=== PATIENT | male | born 1940 | race Caucasian/White ===

== ENCOUNTER 2016-03-05 07:06 | Inpatient (IN) | payer OTHER ==
[~2016-03-05] VITALS: Ht 170.2 cm; Wt 73.8 kg
[~2016-03-05 07:06] MED LIST: AFAT1TAB2 PO; ASPI81TA21 PO; CEPH-570 PO; DENOINJ IM; FRRG PO; GUAI100L PO; LISI-729 PO; ONDA8TAB6 PO; OXYC-57 PO; PROC1TAB5 PO; ROSU40TA PO; ZOLP10TA PO; [UNRECOGNIZED DRUG - REMARK] PO; [UNRECOGNIZED DRUG - REMARK] PO
--- NOTE | 2016-03-05 07:30 | EMERGENCY ROOM VISIT NOTE ---
History Report prepared by Laci: Vikki Gil Under the Supervision of: Dr. Mima Nichols M.D. First contact with patient: 07:25 Chief Complaint: OTHER COMPLAINT Stated Complaint: NEEDS PORT REMOVED History of Present Illness The patient is a 76 year old male who presents to the Emergency Room with complaints of needing his port removed. He is accompanied by his . The patient states he was referred by Dr. Machado at [facility] Hematology/Oncology to have the port removed this morning as he was recently diagnosed with a positive gram negative culture. The patient has a history of lung and bone cancer states he had his port placed [address] Yusuf. Yesterday, he started a new drug treatment and reports he felt "shivery and shaky" while it was being administered. He notes a few weeks ago when he was getting his port flushed, he also felt shaky. The patient admits to the chills but denies any fevers. Source of History: patient Onset: PROJECT CONTROL ANALYST Position: other (global) Timing: constant Associated Symptoms: + chills, No fevers Review of Systems See HPI for pertinent positives & negatives. A total of 10 systems reviewed and were otherwise negative. Past Medical & Surgical Medical Problems: (1) Dyslipidemia (2) GERD (gastroesophageal reflux disease) (3) HTN (hypertension) (4) Lung cancer (5) Lung cancer, upper lobe Surgical Problems: (1) History of tonsillectomy and adenoidectomy Family History FH: cardiovascular disease Stroke Social History Smoking Status: Former Smoker Alcohol Use: none Drug Use: none Marital Status: Housing Status: lives with family Occupation Status: retired Current/Historical Medications Scheduled Aspirin Enteric Coated (Ecotrin Or Generic), 81 MG PO DAILY Atorvastatin (Lipitor), 40 MG PO DAILY Denosumab (Xgeva), 1 SYR IM Q6WK Ferrous Gluconate (Ferrous Gluconate), 324 MG PEG DAILY Guaifenesin (Robitussin), 5 ML PO PRN Lisinopril (Zestril), 5 MG PO DAILY Nivolumab (Opdivo), 1 DOSE IV Q2WK Omeprazole (Prilosec), 40 MG PO DAILY Ondansetron Hcl (Zofran), 8 MG PO Q8HR PRN Oxycodone/Acetaminophen 5MG/325MG (Percocet 5MG/325MG), 1 TABLET PO Q4-6HR PRN Prochlorperazine Maleate (Compazine), 10 MG PO Q4-6HR PRN Zolpidem Tartrate (Ambien), 10 MG PO HS Scheduled PRN Lorazepam (Ativan), 0.5 MG PO BID PRN for Anxiety Allergies Coded Allergies: No Known Allergies (Unverified , 03/05/16) Physical Exam Vital Signs Date Time Temp Pulse Resp B/P Pulse Ox O2 Delivery O2 Flow Rate FiO2 03/05/16 09:25 99 20 111/63 96 Room Air 03/05/16 08:09 37.1 103 18 118/66 96 Room Air 03/05/16 07:47 109 03/05/16 07:10 36.6 119 20 102/59 95 Room Air Physical Exam Vital signs reviewed. General: Well-appearing 76 year old man, in no significant distress. HEENT: No scleral icterus, PERRLA, neck supple. Atraumatic. Cardiovascular: Regular rate and rhythm, no extra sounds. Pulmonary: Clear to auscultation bilaterally, normal work of breathing. Abdomen: Soft, nontender, nondistended, positive bowel sounds. Musculoskeletal: Atraumatic, no peripheral edema. Neurologic: Patient awake alert and oriented x 3, full strength in all 4 extremities. Cranial nerves 2 through 12 grossly intact. Skin: Warm, dry, no rash. Port in left subclavicular region, bandage to the right chest wall. Medical Decision & Procedures Laboratory Results 03/05/16 07:55 Red Blood Count 4.38, Mean Corpuscular Volume 79.0, Mean Corpuscular Hemoglobin 26.5, Mean Corpuscular Hemoglobin Concent 33.5, Mean Platelet Volume 10.4 03/05/16 07:55 Test 03/05/16 07:55 White Blood Count 9.26 K/uL (4.8-10.8) Red Blood Count 4.38 M/uL (4.7-6.1) Hemoglobin 11.6 g/dL (14.0-18.0) Hematocrit 34.6 % (42-52) Mean Corpuscular Volume 79.0 fL (80-100) Mean Corpuscular Hemoglobin 26.5 pg (25-34) Mean Corpuscular Hemoglobin Concent 33.5 g/dl (32-36) Platelet Count 143 K/uL (130-400) Mean Platelet Volume 10.4 fL (7.4-10.4) RDW Standard Deviation 46.2 fL (36.4-46.3) RDW Coefficient of Variation 16.0 % (11.5-14.5) Neutrophils % (Manual) 95.7 % Lymphocytes % (Manual) 0.0 % Monocytes % (Manual) 1.7 % Eosinophils % (Manual) 1.7 % Basophils % (Manual) 0.9 % (0-2) Neutrophils # (Manual) 8.86 K/uL (1.4-6.5) Total Absolute Neutrophils 8.86 K/uL (1.4-6.5) Total Absolute Lymphocytes 0.00 K/uL (1.2-3.4) Monocytes # (Manual) 0.16 K/uL (0.11-0.59) Eosinophils # (Manual) 0.16 K/uL (0-0.5) Basophils # (Manual) 0.08 K/uL (0-0.2) Red Blood Cell Morphology Unremarkable Prothrombin Time 11.6 SECONDS (9.0-12.0) Prothromb Time International Ratio 1.1 (0.9-1.1) Activated Partial Thromboplast Time 31.7 SECONDS (21.0-31.0) Partial Thromboplastin Ratio 1.2 Anion Gap 10.0 mmol/L (3-11) Est Creatinine Clear Calc Drug Dose 55.1 ml/min Estimated GFR () 76.2 Estimated GFR (Non- 65.8 BUN/Creatinine Ratio 19.3 (10-20) Calcium Level 9.0 mg/dl (8.5-10.1) Magnesium Level 1.9 mg/dl (1.8-2.4) Total Bilirubin 1.1 mg/dl (0.2-1) Direct Bilirubin 0.3 mg/dl (0-0.2) Aspartate Amino Transf (AST/SGOT) 27 U/L (15-37) Alanine Aminotransferase (ALT/SGPT) 35 U/L (12-78) Alkaline Phosphatase 117 U/L (45-117) Total Protein 6.3 gm/dl (6.4-8.2) Albumin 2.9 gm/dl (3.4-5.0) Laboratory results per my review. Medications Administered Medications (Trade) Dose Ordered Sig/Gal Route Start Time Stop Time Status Last Admin Dose Admin Sodium Chloride (Nss 1000ml) 1,000 ml @ 125 mls/hr Q8H STAT IV 03/05/16 07:37 03/05/16 15:17 DC 03/05/16 08:04 125 MLS/HR Piperacillin Sod/ Tazobactam Sod (Zosyn Iv) 4.5 gm NOW STAT IV 03/05/16 07:37 03/05/16 07:40 DC 03/05/16 08:03 4.5 GM Acetaminophen (Tylenol Tab) 650 mg Q4H PRN PO 03/05/16 10:15 04/04/16 10:14 03/05/16 13:44 650 MG ECG Indication: tachycardia Rate (beats per minute): 106 Rhythm: sinus tachycardia Findings: no acute ischemic change, no ectopy ED Course 0724: Past medical records reviewed. The patient was evaluated in room B2. A complete history and physical examination was performed. 0737: Zosyn 4.5 gm IV, NSS 1000 ml @ 125 mls/hr IV. 0804: I reevaluated the patient. He is resting comfortably. 0807: I discussed the patients case with Dr. Ashton, [facility]. The patient will be further evaluated. 0918: I discussed the patients case with Cherise Blanco PA-C, [facility] Hospitalist. The patient will be further evaluated. Medical Decision Etiologies such as sepsis, UTI, pneumonia, metabolic, electrolyte abnormalities , cardiac sources, intracerebral event, toxicologic, neurologic, infected indwelling port, as well as others were entertained. This patient was evaluated and appeared to be in no significant distress. Physical examination reveals a generally well-appearing but chronically ill male. He states he's had chills but is afebrile. Per outside medical records, the patient had a gram negative rods on blood culture. Blood cultures were repeated. The patient was given IV Zosyn. He was hydrated with normal saline solution. I did speak with Dr. Ashton of general surgery. He stated he would evaluate the patient later today. The hospitalist was consulted for admission and further management. Patient is aware of the plan and agrees. Consults Time Called: 08 Consulting Physician: Dr. Ashton, [facility] Returned Call: [phone] I discussed the patients case with Dr. Ashton, [facility] General Surgery. The patient will be further evaluated. Additional Consults: Time Called: 915 Consulted Physician: Cherise Blanco PA-C, [facility] Returned Call: [phone] Additional Comments: I discussed the patients case with [facility] Bl[facility]-C, [facility] The patient will be further evaluated. Impression Primary Impression: Bacteremia Additional Impressions: Lung cancer, Infected venous access port Scribe Attestation The scribe's documentation has been prepared under my direction and personally reviewed by me in its entirety. I confirm that the note above accurately reflects all work, treatment, procedures, and medical decision making performed by me. Departure Information Dispostion Being Evaluated By Hospitalist Referrals No Doctor, Assigned (PCP) Patient Instructions A Signature Page, My [facility]
[2016-03-05] MEDS ORDERED: SODIUM CHLORIDE 0.9% 1000ML 1,000 ML IV STA (07:37)
[2016-03-05] MEDS ORDERED: PIPERACILLIN/TAZOBACTAM 4.5 GM/100ML D5W IV STA (07:37)
[2016-03-05 08:19] LABS: HEMATOCRIT 34.6 % (42-52); MEAN CORPUSCULAR HEMOGLOBIN 26.5 pg (25-34); MEAN CORPUSCULAR HGB CONC 33.5 g/dl (32-36); MEAN PLATELET VOLUME 10.4 fL (7.4-10.4); PLATELET COUNT 143 K/uL (130-400); RED BLOOD COUNT 4.38 M/uL (4.7-6.1); WHITE BLOOD COUNT 9.26 K/uL (4.8-10.8)
[2016-03-05 08:32] LABS: INR 1.1 (0.9-1.1); PARTIAL THROMBOPLASTIN RATIO 1.2; PROTHROMBIN TIME (PATIENT) 11.6 SECONDS (9.0-12.0)
[2016-03-05 08:40] LABS: BUN/CREATININE RATIO 19.3 (10-20); CREATININE 1.1 mg/dl (0.60-1.40); MAGNESIUM 1.9 mg/dl (1.8-2.4); POTASSIUM 3.9 mmol/L (3.5-5.1)
[2016-03-05] MEDS ORDERED: ATOR-24 PO (08:53)
[2016-03-05] MEDS ORDERED: CLIN1GEL5 TOP (08:53)
[2016-03-05] MEDS ORDERED: LORA-741 PO ×2 (08:53→10:31)
[2016-03-05] MEDS ORDERED: FERR325T18 PEG (08:53)
[2016-03-05] MEDS ORDERED: NIVO1INJ IV (08:53)
[2016-03-05 08:56] LABS: BASO ABS # 0.08 K/uL (0-0.2); BASOPHIL % 0.9 % (0-2); COMPLETE YES; EOSINOPHIL % 1.7 %; NEUTROPHILS % 95.7 %
--- NOTE | 2016-03-05 09:34 | Pre-Operative Consultation ---
History General Date of Service: Mar 05, 2016. HPI HPI: The patient is a 76 year old male with stage IV lung cancer referred to the ED by Dr. Machado for positive blood cultures taken yesterday during chemo. During infusion he felt chills and shakes and the port was de-accessed, cultured and infusion finished peripherally. He had a similar event about 6 weeks ago when the port was flushed, was given Rocephin in the ED and Levaquin at home. Problem List Medical Problems: (1) Bacteremia Status: Acute (2) Infected venous access port Status: Acute (3) Lung cancer Status: Acute Medical & Surgical History Past Medical History: cancer, cancer - lung Past Surgical History: mediport, other (Pleur-X cath) Family History Family History: no pertinent family hx Social History Hx Tobacco Use In Past Year?: No Smoking Status: Former Smoker Alcohol: none Drug Use: none Marital status: Housing status: lives with family Occupation status: retired Allergies Allergies: Coded Allergies: No Known Allergies (Unverified , 03/05/16) Medications Current Inpatient Medications Current Inpatient Medications Medications (Trade) Dose Ordered Sig/Gal Route Start Time Stop Time Status Last Admin Dose Admin Sodium Chloride (Nss 1000ml) 1,000 ml @ 125 mls/hr Q8H STAT IV 03/05/16 07:37 03/05/16 15:36 03/05/16 08:04 125 MLS/HR Review of Systems Review of Systems Constitutional: chills (yesterday, none overnight), denies fever Integumentary: no symptoms reported, denies lesions, denies rash Physical Exam Physical Exam Physical Exam: T 37.1 P 99 R 20 BP 111/63 Ears, Nose, Throat: + normal ENT inspection Respiratory: + decreased breath sounds (right base), + other (left shoulder port nontender, no erythema) Cardiovascular: + tachycardia Diagnostics Labs Labs Results Past 24 Hours Test 03/05/16 07:55 Range/Units White Blood Count 9.26 4.8-10.8 K/uL Red Blood Count 4.38 4.7-6.1 M/uL Hemoglobin 11.6 14.0-18.0 g/dL Hematocrit 34.6 42-52 % Mean Corpuscular Volume 79.0 80-100 fL Mean Corpuscular Hemoglobin 26.5 25-34 pg Mean Corpuscular Hemoglobin Concent 33.5 32-36 g/dl Platelet Count 143 130-400 K/uL Mean Platelet Volume 10.4 7.4-10.4 fL RDW Standard Deviation 46.2 36.4-46.3 fL RDW Coefficient of Variation 16.0 11.5-14.5 % Neutrophils % (Manual) 95.7 % Lymphocytes % (Manual) 0.0 % Monocytes % (Manual) 1.7 % Eosinophils % (Manual) 1.7 % Basophils % (Manual) 0.9 0-2 % Neutrophils # (Manual) 8.86 1.4-6.5 K/uL Total Absolute Neutrophils 8.86 1.4-6.5 K/uL Total Absolute Lymphocytes 0.00 1.2-3.4 K/uL Monocytes # (Manual) 0.16 0.11-0.59 K/uL Eosinophils # (Manual) 0.16 0-0.5 K/uL Basophils # (Manual) 0.08 0-0.2 K/uL Red Blood Cell Morphology Unremarkable Prothrombin Time 11.6 9.0-12.0 SECONDS Prothromb Time International Ratio 1.1 0.9-1.1 Activated Partial Thromboplast Time 31.7 21.0-31.0 SECONDS Partial Thromboplastin Ratio 1.2 Sodium Level 137 136-145 mmol/L Potassium Level 3.9 3.5-5.1 mmol/L Chloride Level 103 98-107 mmol/L Carbon Dioxide Level 24 21-32 mmol/L Anion Gap 10.0 3-11 mmol/L Blood Urea Nitrogen 21 7-18 mg/dl Creatinine 1.10 0.60-1.40 mg/dl Est Creatinine Clear Calc Drug Dose 55.1 ml/min Estimated GFR () 76.2 Estimated GFR (Non- 65.8 BUN/Creatinine Ratio 19.3 10-20 Random Glucose 113 70-99 mg/dl Calcium Level 9.0 8.5-10.1 mg/dl Magnesium Level 1.9 1.8-2.4 mg/dl Total Bilirubin 1.1 0.2-1 mg/dl Direct Bilirubin 0.3 0-0.2 mg/dl Aspartate Amino Transf (AST/SGOT) 27 15-37 U/L Alanine Aminotransferase (ALT/SGPT) 35 12-78 U/L Alkaline Phosphatase 117 45-117 U/L Total Protein 6.3 6.4-8.2 gm/dl Albumin 2.9 3.4-5.0 gm/dl Microbiology Results 03/05/16 Blood Culture, Received Pending 03/05/16 Blood Culture, Received Pending 03/05/16 Blood Culture, Amalia Batch Pending 03/05/16 Blood Culture, Amalia Batch Pending Impression Assessment and Plan Assessment and Plan bacteremia, infected A-port Is being admitted by hospitalist. Will plan port removal for this afternoon by Dr. Ashton in the OR. Keep NPO until then.
[2016-03-05] MEDS ORDERED: ACETAMINOPHEN 325 MG TAB PO PRN (10:15)
[2016-03-05] MEDS ORDERED: ONDANSETRON INJ 2 MG/ML 2 ML VIAL IV PRN ×2 (10:15→15:45)
[2016-03-05] MEDS ORDERED: LORAZEPAM 0.5 MG TAB PO PRN (10:30)
[2016-03-05] MEDS ORDERED: PROCHLORPERAZINE MALEATE 10 MG TAB PO PRN (10:30)
[2016-03-05] MEDS ORDERED: OMEP40CA36 PO (10:31)
[2016-03-05] MEDS ORDERED: PIPERACILL/TAZOBAC CONSULT ACTIVE PRN (10:36)
--- NOTE | 2016-03-05 12:03 | DIAGNOSTIC IMAGING REPORT ---
CHEST 2 VIEWS ROUTINE CLINICAL HISTORY: Pleural effusion COMPARISON STUDY: 02/24/2016 FINDINGS: The cardiac and mediastinal contours remain stable. The heart is normal in size. There is a right basilar pleural catheter. There is a small right pleural effusion. There is slight increased density of the right hilum, unchanged the prior study.[ IMPRESSION: 1. No cystic change from the prior study 2. Stable increased right hilar density 3. Small right pleural effusion. No change in the position right-sided pleural catheter Electronically signed by: Ollie Montyoa M.D. 03/05/2016 12:00 PM Dictated Date/Time: 03/05/2016 11:59 AM
[2016-03-05 12:49] VITALS: O2SAT 97; Ht 170.2 cm; Wt 73.8 kg
[2016-03-05] MEDS ORDERED: CEFEPIME CONSULT ACTIVE PRN ×2 (13:15)
[2016-03-05] MEDS ORDERED: PROPOFOL IV EMULSION 10 MG/ML 20 ML VIAL IV ONE ×4 (14:57→16:30)
[2016-03-05] MEDS ORDERED: LIDOCAINE HCL 2% 2 ML VIAL (20MG/ML) ONE ×2 (14:57→15:05)
[2016-03-05] MEDS ORDERED: MIDAZOLAM HCL 1 MG/ML 2ML VIAL ONE ×3 (14:58→17:11)
[2016-03-05] MEDS ORDERED: FENTANYL CITRATE INJ 50 MCG/1 ML 2 ML VIAL ONE ×2 (14:58→15:05)
[2016-03-05] MEDS ORDERED: HYDROmorphone INJ 1 MG/ML SYR IV PRN (15:45)
[2016-03-05] MEDS ORDERED: FENTANYL CITRATE INJ 50 MCG/1 ML 2 ML VIAL IV PRN (15:45)
[2016-03-05] MEDS ORDERED: EpHEDrine SULFATE INJ 50 MG/ML AMP IV PRN (15:45)
[2016-03-05] MEDS ORDERED: ATROPINE SULFATE 0.1 MG/ML 5ML SYR IV PRN (15:45)
--- NOTE | 2016-03-05 17:00 | DIAGNOSTIC IMAGING REPORT ---
ATTEMPTED APORT REMOVAL. CLINICAL HISTORY: Attempted a port removal. COMPARISON STUDY: Chest radiograph March 05, 2016. Fluoroscopy time: 2 seconds. FINDINGS: No images were obtained during this attempted a port removal. IMPRESSION: Fluoroscopy provided during attempted a port removal. No images provided. Electronically signed by: Sterling Gipson M.D. 03/05/2016 4:58 PM Dictated Date/Time: 03/05/2016 4:57 PM
[2016-03-05] MEDS ORDERED: BUPIVACAINE/EPINEPHRINE 0.5% MPF 1:200,000 30 ML VIAL INJ ONE (17:03)
[2016-03-05] MEDS ORDERED: TRIPLE ANTIBIOTIC TOP ONE (17:04)
[2016-03-05 17:35] VITALS: BP 118/55; PULSE 89; TEMP 36.6; O2SAT 96
--- NOTE | 2016-03-05 17:57 | Anesthesiology Progress Note ---
Anesthesia Post Op Note Date & Time Mar 05, 2016 at 17:56 Vital Signs Pain Intensity: 3 Vital Signs Past 12 Hours Date Time Temp Pulse Resp B/P Pulse Ox O2 Delivery O2 Flow Rate FiO2 03/05/16 17:20 36.4 78 20 111/54 98 Room Air 03/05/16 17:10 82 18 107/62 100 Mask 10 03/05/16 17:01 36.4 85 12 101/58 100 Mask 10 03/05/16 13:56 95 20 119/62 97 03/05/16 13:19 99 18 121/63 99 Room Air 03/05/16 12:49 97 Room Air 03/05/16 12:06 95 03/05/16 12:02 95 20 110/57 99 Room Air 03/05/16 10:46 99 03/05/16 10:42 37.1 100 20 108/59 96 Room Air 03/05/16 09:25 99 20 111/63 96 Room Air 03/05/16 08:09 37.1 103 18 118/66 96 Room Air 03/05/16 07:47 109 03/05/16 07:10 36.6 119 20 102/59 95 Room Air Notes Mental Status: alert / awake / arousable, participated in evaluation Pt Amnestic to Procedure: Yes Nausea / Vomiting: adequately controlled Pain: adequately controlled Airway Patency, RR, SpO2: stable & adequate BP & HR: stable & adequate Hydration State: stable & adequate Anesthetic Complications: no major complications apparent
[2016-03-05 18:05] VITALS: BP 121/69; PULSE 89; TEMP 36.7; O2SAT 99
[2016-03-05] MEDS: SODIUM CHLORIDE 0.9% 1000ML 1,000 ML IV SCH (18:18)
[2016-03-05 18:35] VITALS: BP 119/71; PULSE 91; O2SAT 98
--- NOTE | 2016-03-05 19:34 | [facility] Operative Report ---
Operative Report Operative Date Mar 05, 2016. Pre-Operative Diagnosis Infected A-Port Post-Operative Diagnosis same Procedure(s) Performed aborted attempt at mediport removal Surgeon Dr. Ashton Assistant Store Manager Operations Surgeon(s) Vineet Dalton PA-C; Dr. Del Valle Estimated Blood Loss 5ml Findings mediport adhesed/unable to be removed. Specimens None per surgeon Anesthesia GET Disposition Recovery Room / PACU I attest to the content of the Intraoperative Record and any orders documented therein. Any exceptions are noted below.
[2016-03-05] MEDS: ZOLPIDEM TARTRATE 10 MG TAB PO SCH (21:36)
[2016-03-05] MEDS: CEFEPIME IV 2000 MG in DEXTROSE 5% 100ML IV SCH (21:36)
--- NOTE | 2016-03-05 21:46 | OPERATIVE REPORT ---
DATE OF OPERATION: 03/05/2016 PREOPERATIVE DIAGNOSIS: Infected left subclavian MediPort. POSTOPERATIVE DIAGNOSIS: Same with adhesed MediPort. PROCEDURE: Aborted attempt at left subclavian MediPort removal under fluoroscopy. SURGEON: Dr. Ashton. STUDIO SALES ASSOCIATE: Vineet Dalton PA-C. SECOND SURGEON: Dr. Del Valle, with intraoperative consult with Dr. Del Valle as well as Dr. Garcia. This was also performed under fluoroscopy. ESTIMATED BLOOD LOSS: 20 mL COMPLICATION: We were unable to safely remove the port. ANESTHESIA: MAC with local Marcaine. OPERATIVE NOTE: After informed consent was obtained, the patient was taken to the operating suite and placed in a supine position. IV sedation was administered by anesthesia and titrated to effect. After he was sedated, we used some Marcaine to inject around the incision. Once we did this, we then made an incision directly over his old scar line, carried this down through the soft tissue. We were able to quite readily mobilize the port itself and cut away suture. Once we did this, we then began following the tunneled catheter bluntly as well as using small amounts of scissor dissection. We carried this whole way down to the subclavian. It was very adhesed and we were unable to remove it. We did contact Dr. Garcia who recommended that we close the incision and then he would attempt to free it up in an endovascular technique. Dr. Del Valle also came into the room, scrubbed in the case. We tried for probably 20 minutes to free up the catheter. We also used fluoroscopy and there did not appear to be any visual problem with the catheter. After we did all this, we took Dr. Garcia's advice, we placed the port back into the pocket and irrigated the wound. We closed it with 2-0 Vicryl and then interrupted 3-0 Prolene. Sterile dressing was applied. The patient was awakened and transferred to recovery room in stable condition. I attest to the content of the Intraoperative Record and any orders documented therein. Any exceptio ns are noted below.
[2016-03-06 00:35] VITALS: BP 132/65; PULSE 99; TEMP 36.7; O2SAT 99
[2016-03-06] MEDS: SODIUM CHLORIDE 0.9% 1000ML 1,000 ML IV SCH ×2 (01:00→11:07)
[2016-03-06 04:00] VITALS: BP 118/53; PULSE 97; TEMP 36.7; O2SAT 97
[2016-03-06 06:30] LABS: HEMATOCRIT 31.1 % (42-52); MEAN CELL VOLUME 79.7 fL (80-100); MEAN CORPUSCULAR HEMOGLOBIN 25.9 pg (25-34); MEAN CORPUSCULAR HGB CONC 32.5 g/dl (32-36); MEAN PLATELET VOLUME 10.8 fL (7.4-10.4); PLATELET COUNT 131 K/uL (130-400); WHITE BLOOD COUNT 5.01 K/uL (4.8-10.8)
[2016-03-06 07:02] LABS: BUN/CREATININE RATIO 18.3 (10-20); CREATININE 0.88 mg/dl (0.60-1.40); POTASSIUM 3.9 mmol/L (3.5-5.1)
--- NOTE | 2016-03-06 07:35 | Surgery Progress Note ---
Surgery Progress Note Date of Service Mar 06, 2016. Subjective Post OP Day: 1 + feeling well Objective Vital Signs: Date Time Temp Pulse Resp B/P Pulse Ox O2 Delivery O2 Flow Rate FiO2 03/06/16 04:00 36.7 97 20 118/53 97 Room Air 03/06/16 00:35 36.7 99 20 132/65 99 Room Air 03/06/16 00:00 Room Air 03/05/16 18:35 91 18 119/71 98 03/05/16 18:05 36.7 89 18 121/69 99 Room Air 03/05/16 17:35 96 Room Air 03/05/16 17:35 Room Air 03/05/16 17:35 36.6 89 16 118/55 96 Room Air 03/05/16 17:20 36.4 78 20 111/54 98 Room Air 03/05/16 17:10 82 18 107/62 100 Mask 10 03/05/16 17:01 36.4 85 12 101/58 100 Mask 10 03/05/16 13:56 95 20 119/62 97 03/05/16 13:19 99 18 121/63 99 Room Air 03/05/16 12:49 97 Room Air 03/05/16 12:06 95 03/05/16 12:02 95 20 110/57 99 Room Air 03/05/16 10:46 99 03/05/16 10:42 37.1 100 20 108/59 96 Room Air 03/05/16 09:25 99 20 111/63 96 Room Air 03/05/16 08:09 37.1 103 18 118/66 96 Room Air 03/05/16 07:47 109 General Appearance: no apparent distress Head: normocephalic Incision(s): clean, dry, intact Extremities: non-tender Laboratory Results: Results Past 24 Hours Test 03/05/16 07:55 03/05/16 11:57 03/06/16 05:38 Range/Units White Blood Count 9.26 5.01 4.8-10.8 K/uL Red Blood Count 4.38 3.90 4.7-6.1 M/uL Hemoglobin 11.6 10.1 14.0-18.0 g/dL Hematocrit 34.6 31.1 42-52 % Mean Corpuscular Volume 79.0 79.7 80-100 fL Mean Corpuscular Hemoglobin 26.5 25.9 25-34 pg Mean Corpuscular Hemoglobin Concent 33.5 32.5 32-36 g/dl Platelet Count 143 131 130-400 K/uL Mean Platelet Volume 10.4 10.8 7.4-10.4 fL RDW Standard Deviation 46.2 47.1 36.4-46.3 fL RDW Coefficient of Variation 16.0 16.1 11.5-14.5 % Neutrophils % (Manual) 95.7 % Lymphocytes % (Manual) 0.0 % Monocytes % (Manual) 1.7 % Eosinophils % (Manual) 1.7 % Basophils % (Manual) 0.9 0-2 % Neutrophils # (Manual) 8.86 1.4-6.5 K/uL Total Absolute Neutrophils 8.86 1.4-6.5 K/uL Total Absolute Lymphocytes 0.00 1.2-3.4 K/uL Monocytes # (Manual) 0.16 0.11-0.59 K/uL Eosinophils # (Manual) 0.16 0-0.5 K/uL Basophils # (Manual) 0.08 0-0.2 K/uL Red Blood Cell Morphology Unremarkable Prothrombin Time 11.6 9.0-12.0 SECONDS Prothromb Time International Ratio 1.1 0.9-1.1 Activated Partial Thromboplast Time 31.7 21.0-31.0 SECONDS Partial Thromboplastin Ratio 1.2 Sodium Level 137 142 136-145 mmol/L Potassium Level 3.9 3.9 3.5-5.1 mmol/L Chloride Level 103 109 98-107 mmol/L Carbon Dioxide Level 24 26 21-32 mmol/L Anion Gap 10.0 7.0 3-11 mmol/L Blood Urea Nitrogen 21 16 7-18 mg/dl Creatinine 1.10 0.88 0.60-1.40 mg/dl Est Creatinine Clear Calc Drug Dose 55.1 68.9 ml/min Estimated GFR () 76.2 98.1 Estimated GFR (Non- 65.8 84.6 BUN/Creatinine Ratio 19.3 18.3 10-20 Random Glucose 113 90 70-99 mg/dl Calcium Level 9.0 8.0 8.5-10.1 mg/dl Magnesium Level 1.9 1.8-2.4 mg/dl Total Bilirubin 1.1 0.2-1 mg/dl Direct Bilirubin 0.3 0-0.2 mg/dl Aspartate Amino Transf (AST/SGOT) 27 15-37 U/L Alanine Aminotransferase (ALT/SGPT) 35 12-78 U/L Alkaline Phosphatase 117 45-117 U/L Total Protein 6.3 6.4-8.2 gm/dl Albumin 2.9 3.4-5.0 gm/dl Lactic Acid Level 1.0 0.4-2.0 mmol/L Microbiology Results 03/05/16 Blood Culture, Received Pending 03/05/16 Blood Culture, Received Pending Assessment & Plan post op day #1: aborted attempt at mediport removal awaiting consult by Dr. Mckeon for removal. no acute post op issues.
[2016-03-06 07:49] VITALS: BP 129/71; PULSE 97; TEMP 37; O2SAT 97
[2016-03-06] MEDS: CEFEPIME IV 2000 MG in DEXTROSE 5% 100ML IV SCH ×2 (08:50→19:56)
[2016-03-06] MEDS: LISINOPRIL 5 MG TAB PO SCH (08:51)
[2016-03-06] MEDS: FERROUS GLUCONATE 324 MG TAB PO SCH (08:51)
[2016-03-06] MEDS: PANTOprazole SOD 40 MG TAB PO SCH (08:51)
[2016-03-06] MEDS: ATORVASTATIN 40 MG TAB PO SCH (08:51)
[2016-03-06] MEDS ORDERED: ASPIRIN 81 MG ECTAB PO SCH (09:00)
--- NOTE | 2016-03-06 10:16 | DIAGNOSTIC IMAGING REPORT ---
CHEST ONE VIEW PORTABLE CLINICAL HISTORY: Pleural drainage. COMPARISON STUDY: Chest radiograph March 05, 2016 FINDINGS: A left subclavian [id number] remains in place. A right pleural catheter remains in place. No pneumothorax is identified. A trace right pleural effusion with possible right pleural nodularity is unchanged. Cardiac size is stable. There is no evidence of pulmonary edema. The patient is mildly rotated. IMPRESSION: Right pleural catheter in place. No change in a trace right pleural effusion. No pneumothorax. Electronically signed by: Sterling Gipson M.D. 03/06/2016 10:14 AM Dictated Date/Time: 03/06/2016 10:13 AM
--- NOTE | 2016-03-06 10:36 | SURGERY PROGRESS NOTE ---
DATE: 03/06/2016 DATE: 03/06/2016. I saw Mr. Barrera this morning on 03/06/2016. He had some discomfort but his dressing is dry over his left Port-A-Cath site where Dr. Ashton and I were unable to remove this port. The patient looks quite good. He has been afebrile. His states that the drainage has gone up a bit from his PleurX catheter. He is on room air at 97 and 99% sats. He has had no fever since he got here. His white count this morning is 5,010. I reviewed the drainage for the last couple weeks on Mr. Barrera. He has been drained every 2 days. His drainage is ranging anywhere from 160 to about 350, but it appears to be trending up. At any rate, he was drained 48 hours ago when I drained 230 mL of clear serous fluid today. He tolerated it quite well with no pain. His x-ray shows essentially no fluid on the right. I sent the fluid off a first pH as well as for laboratory analysis. We know it is malignant so I just sent it off culture and studies to see if this indeed is infected. 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 It does not appear to be infected and fluid is clear, however we will assess this and the micro results. It indeed it does appear to be infected the treatment would be to remove it. We will talk about that a bit after results are back.
--- NOTE | 2016-03-06 11:01 | SURGICAL CONSULTATION ---
DATE OF CONSULTATION: 03/05/2016 DATE OF CONSULTATION: 03/05/2016. REASON FOR CONSULTATION: 1. Intraoperative consultation for removal of Port-A-Cath, which was unable to be removed. 2. Followup of right PleurX catheter for right malignant pleural effusion. HISTORY OF PRESENT ILLNESS: Emmy Barrera is a patient who is well known to me. He has a history of a nonsmall cell lung carcinoma diagnosed many years ago who has been treated with multiple different regimens. He was not resected. He has done remarkably well and looks good. I saw him for a pleural effusion on the right that continued to enlarge and inserted a PleurX catheter on 12/30/2015. The PleurX catheter was initially drained daily and now it is drained every other day but the drainage has waxed and waned, but never got to the point where I could remove it. He has no pulmonary problems now and is tolerating the PleurX catheter well. The patient apparently become bacteremic from gram negative organism, although I do not see results of that in our system. At any rate, it was felt that his Port-A-Cath may well be infected and Dr. Ashton was asked to remove this. He asked me to come see Mr. Barrera in the operating room as the Port-A-Cath was removed several centimeters, but then it was stuck. I came in and attempted to free this up by going under the clavicle; however for reasons which are not clear to me it is quite adherent, it is not going to come out. Dr. Ashton discussed this with Dr. Garcia over the phone and Dr. Garcia will see the patient and perhaps an endovascular approach will be attempted. It should be noted this Port-A-Cath was placed 6 years and 2 months ago. In addition, the PleurX catheter needs to be maintained. Given his bacteremia I am concerned that this may be infected, although there has been no change in the nature of the fluid. PAST MEDICAL HISTORY: 1. Nonsmall cell lung carcinoma (stage IV). 2. Hypertension. 3. Dyslipidemia. 4. Malignant right pleural effusion. 5. Dyslipidemia. 6. Gastroesophageal reflux disease. 7. Hypertension. The patient also had lumbar spine METS and underwent radiation therapy and also radiation therapy to his bilateral sacroiliac joints and right humerus and sternum. PAST SURGICAL HISTORY: 1. Tonsillectomy and adenoidectomy. 2. Insertion of right PleurX catheter. MEDICATIONS: 1. Aspirin. 2. Lipitor. 3. Ferrous sulfate. 4. Xgeva. 5. Zestril. 6. Opdivo. 7. Prilosec. 8. Zofran. 9. Percocet. 10. Ambien. 11. Compazine. ALLERGIES: No known drug allergies. SOCIAL HISTORY: The patient is retired. He quit smoking 8 years ago but smoked for 50 years. He lives with his who is extremely supportive. He is independent in his activities of daily living. FAMILY MEDICAL HISTORY: History of cerebral vascular disease as well as coronary artery disease. REVIEW OF SYSTEMS: The patient has not lost weight. He denied fever, sweats or chills, other than that described in history of present illness which occurred when his Port-A-Cath was flushed. It should be noted that he also developed chills about 6 weeks ago when his cultures were all negative at that time. He does wear glasses but he has had no new visual or auditory complaints. He has had no neck stiffness. He denies any chest pain, palpitations or nausea, vomiting, diarrhea. He has had no peripheral edema. Neurologically he has been completely intact, has no neurologic events such as seizures, transient ischemic attacks or amaurosis fugax. PHYSICAL EXAMINATION: GENERAL: This is a well-developed, well-nourished male who appears younger than his stated age of 76. He stands 5 feet 7 inches tall, weighs 173 pounds. He wears glasses. HEAD, EYES, EARS, NOSE, AND THROAT: His extraocular movements are intact. His pupils are equal, round and reactive. Sclerae are anicteric. He has no nasolabial flattening. His tongue is midline. He has no evidence of oral candidiasis, no oral mucosal lesions. NECK: Supple. I detect no supraclavicular or cervical lymphadenopathy, neck vein distention or thyromegaly. His Port-A-Cath site has no erythema or fluctuance. He was evaluated preoperatively. LUNGS: Clear. HEART: He has a regular rate and rhythm of his heart. His PleurX site is clean. ABDOMEN: Soft, nontender. He has no peripheral edema. He has excellent peripheral pulses. No joint effusions. NEUROLOGIC: Completely awake, alert and oriented. ASSESSMENT AND PLAN: 1. Port-A-Cath which could not be removed at time of surgery. 2. Right PleurX catheter. The patient has been bacteremic. PLAN: Dr. Garcia is going to see this patient about his indwelling PleurX catheter which is to be removed. In addition, I am going to come in tomorrow on 03/06/2016 and drain his PleurX catheter and send it off for appropriate studies to ensure that it too is not infected.
[2016-03-06 11:02] LABS: PLEURAL FLUID GLUCOSE 107 mg/dl
--- NOTE | 2016-03-06 11:05 | OPERATIVE REPORT ---
DATE OF OPERATION: 03/05/2016 REASON FOR PROCEDURE: Intraoperative consultation for Port-A-Cath which was stuck in place. SURGEON: Dr. Del Valle. PROCEDURE: I entered the operating room on the afternoon of 03/05/2016 after being called by Dr. Ashton. I scrubbed in as Dr. Ashton was removing a Port-A-Cath from a patient of mine named Emmy Barrera. Mr. Barrera had this PleurX catheter in for more than 6 years. It actually had not been used until recently. At any rate when I appeared there was an infraclavicular incision on the left in a sterile field. The Port-A-Cath had been pulled out about [address] Ashton. I indeed pulled on this and it simply would not come out. I then used Bovie electrocautery and cauterized on top of it for another 1-2 cm. For reasons which are unclear to me it does appear to be stuck after moving. On fluoroscopy it is pulled back several centimeters from its original position and near the cavoatrial junction. At any rate, after several minutes of trying to free this up, we elected to stop here and closed. I will take care of his PleurX catheter tomorrow. I attest to the content of the Intraoperative Record and any orders documented therein. Any exceptio ns are noted below.
[2016-03-06 11:21] LABS: PLEURAL FLUID APPEARANCE CLEAR; PLEURAL FLUID COLOR YELLOW; PLEURAL FLUID MONONUC RELAT 68.8 %; PLEURAL FLUID POLYNUC 31.2 %; PLEURAL FLUID SOURCE RIGHT LUNG; PLEURAL FLUID WBC (A) 468 /uL
[2016-03-06] MEDS: OXYCODONE/ACETAMINOPHEN 5-325 TAB PO PRN ×2 (11:45→18:58)
[2016-03-06 12:16] VITALS: BP_SYST 129; BP_SYST 143; BP_DIAS 71; BP_DIAS 79; PULSE 96; PULSE 97; TEMP 36.8; TEMP 37; O2SAT 97
--- NOTE | 2016-03-06 16:03 | Medical Consult ---
Consultation Date of Consultation: Mar 06, 2016. Attending Physician: Ruperto Rodrigues MD Reason for Consultation: BACTEREMIA History of Present Illness 76-year-old male with stage IV lung cancer, on chemotherapy, with 6 year history of indwelling a- port, who was admitted after developing fever and chills after chemotherapy infusion. Blood cultures drawn at the time are reported growing gram-negative bacilli. Patient admitted and started empirically on IV cefepime. No further chills or fever since admission. Has been tolerating antibiotics reasonably well. Had similar episode approximately 1 month ago and was given dose of IV ceftriaxone and course of oral levofloxacin at that time. No cultures were taken. Patient has had no obvious problems with his port. No local skin changes. Yesterday, patient underwent attempted removal of the port, but attempts were unsuccessful. Now awaiting vascular surgery consult for further possible intervention. Patient had noted some increase in drainage from his indwelling pleural catheter, but this has lessened since he has been on antibiotics. Cultures from the fluid are pending. Past Medical/Surgical History Medical Problems: (1) Bacteremia Status: Acute (2) Infected venous access port Status: Acute (3) Lung cancer Status: Chronic Medical Problems: (1) Dyslipidemia (2) GERD (gastroesophageal reflux disease) (3) HTN (hypertension) (4) Lung cancer (5) Lung cancer, upper lobe Surgical Problems: (1) History of tonsillectomy and adenoidectomy Family History FH: cardiovascular disease Stroke Social History Smoking Status: Former Smoker Alcohol Use: none Drug Use: none Marital Status: Housing Status: lives with family Occupation Status: retired Allergies Coded Allergies: No Known Allergies (Unverified , 03/05/16) Current Inpatient Medications Current Inpatient Medications Medications (Trade) Dose Ordered Sig/Gal Route Start Time Stop Time Status Last Admin Dose Admin Acetaminophen (Tylenol Tab) 650 mg Q4H PRN PO 03/05/16 10:15 04/04/16 10:14 03/05/16 13:44 650 MG Ondansetron HCl 4 mg 4 mg Q6H PRN IV 03/05/16 10:15 04/04/16 10:14 Sodium Chloride (Nss 1000ml) 1,000 ml @ 100 mls/hr Q10H IV 03/05/16 15:00 04/04/16 14:59 03/06/16 11:07 100 MLS/HR Aspirin (Ecotrin Tab) 81 mg DAILY PO 03/06/16 09:00 04/05/16 08:59 03/06/16 08:51 81 MG Atorvastatin Calcium (Lipitor Tab) 40 mg DAILY PO 03/06/16 09:00 04/05/16 08:59 03/06/16 08:51 40 MG Lisinopril (Zestril Tab) 5 mg DAILY PO 03/06/16 09:00 04/05/16 08:59 03/06/16 08:51 5 MG Lorazepam (Ativan Tab) 0.5 mg BID PRN PO 03/05/16 10:30 04/04/16 10:29 03/05/16 13:44 0.5 MG Oxycodone/ Acetaminophen (Percocet 5-325MG Tab) 1 tab Q6H PRN PO 03/05/16 10:30 03/19/16 10:29 03/06/16 11:45 1 TAB Prochlorperazine Maleate (Compazine Tab) 10 mg Q4H PRN PO 03/05/16 10:30 04/04/16 10:29 Zolpidem Tartrate (Ambien Tab) 10 mg HS PO 03/05/16 21:00 04/04/16 20:59 03/05/16 21:36 10 MG Ferrous Gluconate (Ferrous Gluconate Tab) 324 mg DAILY PO 03/06/16 09:00 04/05/16 08:59 03/06/16 08:51 324 MG Pantoprazole Sodium (Protonix Tab) 40 mg DAILY PO 03/06/16 09:00 04/05/16 08:59 03/06/16 08:51 40 MG Cefepime HCl 1 ea 1 ea UD PRN N/A 03/05/16 13:15 04/04/16 13:14 Cefepime HCl/ Dextrose (Maxipime IV/D5 100ml) 112.5 ml @ 225 mls/hr Q12H IV 03/05/16 20:00 03/19/16 19:59 03/06/16 08:50 225 MLS/HR Review of Systems Constitutional: + chills, + fatigue, + fever Eyes: No problem reported ENT: No problem reported Respiratory: No problem reported Cardiovascular: No problem reported Abdomen: No problem reported Musculoskeletal: No problem reported Genitourinary - Male: No problem reported Neurologic: No problem reported Psychiatric: No problem reported Endocrine: No problem reported Hematologic / Lymphatic: No problem reported Integumentary: No problem reported Allergic / Immunologic: No problem reported Physical Exam Date Time Temp Pulse Resp B/P Pulse Ox O2 Delivery O2 Flow Rate FiO2 03/06/16 12:16 36.8 96 20 143/79 97 Room Air 03/06/16 07:53 Room Air 03/06/16 07:49 37.0 97 18 129/71 97 Room Air 03/06/16 04:00 36.7 97 20 118/53 97 Room Air 03/06/16 00:35 36.7 99 20 132/65 99 Room Air 03/06/16 00:00 Room Air 03/05/16 18:35 91 18 119/71 98 03/05/16 18:05 36.7 89 18 121/69 99 Room Air 03/05/16 17:35 96 Room Air 03/05/16 17:35 Room Air 03/05/16 17:35 36.6 89 16 118/55 96 Room Air 03/05/16 17:20 36.4 78 20 111/54 98 Room Air 03/05/16 17:10 82 18 107/62 100 Mask 10 03/05/16 17:01 36.4 85 12 101/58 100 Mask 10 General Appearance: WD/WN, no apparent distress Head: normocephalic, atraumatic Eyes: normal inspection, EOMI, sclerae normal ENT: normal ENT inspection, hearing grossly normal, pharynx normal Neck: supple, no adenopathy, thyroid normal, trachea midline Respiratory/Chest: chest non-tender, no respiratory distress, no accessory muscle use, + decreased breath sounds ( Right base) Cardiovascular: regular rate, rhythm, no gallop, no murmur Abdomen/GI: normal bowel sounds, non tender, soft, no organomegaly Back: normal inspection, no CVA tenderness Extremities/Musculoskelatal: normal inspection, no calf tenderness, non-tender Neurologic/Psych: alert, normal mood/affect, oriented x 3 Skin: normal color, warm/dry, no rash, + pertinent finding ( no redness or swelling at a port site) Lymphatic: no adenopathy Laboratory Results Date/Time Source Procedure Growth Status 03/06/16 00:00 Pleural Fluid (Thoracentesis) Right Acid Fast Stain Pending Received 03/06/16 00:00 Pleural Fluid (Thoracentesis) Right Mycobacterial Culture Pending Received 03/06/16 00:00 Pleural Fluid (Thoracentesis) Right Gram Stain - Final Resulted 03/06/16 00:00 Pleural Fluid (Thoracentesis) Right Bacterial Culture Pending Resulted Last 24 Hours Test 03/06/16 00:00 03/06/16 05:38 03/06/16 10:16 Pleural Fluid Source RIGHT LUNG Pleural Fluid Color YELLOW Pleural Fluid Appearance CLEAR Pleural Fluid WBC 468 /uL Pleural Fluid RBC < 3000 /uL Pleural Fluid Polynuclear WBCs % 31.2 % Pleural Fluid Mononuclear WBCs % 68.8 % Pleural Fluid LDH 223 IU Pleural Fluid Glucose 107 mg/dl White Blood Count 5.01 K/uL Red Blood Count 3.90 M/uL Hemoglobin 10.1 g/dL Hematocrit 31.1 % Mean Corpuscular Volume 79.7 fL Mean Corpuscular Hemoglobin 25.9 pg Mean Corpuscular Hemoglobin Concent 32.5 g/dl RDW Standard Deviation 47.1 fL RDW Coefficient of Variation 16.1 % Platelet Count 131 K/uL Mean Platelet Volume 10.8 fL Sodium Level 142 mmol/L Potassium Level 3.9 mmol/L Chloride Level 109 mmol/L Carbon Dioxide Level 26 mmol/L Anion Gap 7.0 mmol/L Blood Urea Nitrogen 16 mg/dl Creatinine 0.88 mg/dl Est Creatinine Clear Calc Drug Dose 68.9 ml/min Estimated GFR () 98.1 Estimated GFR (Non- 84.6 BUN/Creatinine Ratio 18.3 Random Glucose 90 mg/dl Calcium Level 8.0 mg/dl Pleural Fluid pH 7.47 CHEST ONE VIEW PORTABLE CLINICAL HISTORY: Pleural drainage. COMPARISON STUDY: Chest radiograph March 05, 2016 FINDINGS: A left subclavian [id number] remains in place. A right pleural catheter remains in place. No pneumothorax is identified. A trace right pleural effusion with possible right pleural nodularity is unchanged. Cardiac size is stable. There is no evidence of pulmonary edema. The patient is mildly rotated. IMPRESSION: Right pleural catheter in place. No change in a trace right pleural effusion. No pneumothorax. Electronically signed by: Sterling Gipson M.D. 03/06/2016 10:14 AM Assessment & Plan 76-year-old male with stage IV lung cancer now with Gram-negative bacteremia, most likely source would be infected [id number]. Agree with need for port removal if possible. Pending final identification sensitivity, cefepime appears to be appropriate therapy with early clinical response. We will adjust antibiotics once final culture results are available. Length of IV antibiotics yet to be determined.
[2016-03-06 16:06] VITALS: BP 134/71; PULSE 95; TEMP 36.5; O2SAT 98
--- NOTE | 2016-03-06 16:33 | Progress Note ---
Internal Med Progress Note Date of Service: Mar 06, 2016. Provider Documentation: SUBJECTIVE: Patient is seen and examined at bedside. He denies any chest pain, SOB, reports mild soreness at the procedure site. OBJECTIVE: Vital Signs-as noted below General Appearance: WD/WN, no apparent distress Head: normocephalic, atraumatic Eyes: normal inspection ENT: hearing grossly normal Neck: supple, No JVD Respiratory/Chest: lungs CTA, normal breath sounds, no respiratory distress Chest: Port a Cath on left side in bandage Cardiovascular: S1, S2, No murmur Abdomen/GI: normal bowel sounds, non tender, soft Back: normal inspection Extremities/Musculoskelatal: normal inspection, no calf tenderness, no pedal edema Neurologic/Psych: alert, normal mood/affect, oriented x 3, No focal deficits Skin: normal color, warm/dry Lab data as noted below. ASSESSMENT & PLAN: Patient is a 76 Yr old male with PMH of Metastatic Non small cell lung cancer, Htn, HLP who is currently underdosing chemotherapy per recommendations from presented to ED for evaluation and management after being noted to have positive blood cultures. Patient states during chemotherapy yesterday he experienced extreme weakness associated with shaking chills and unsteady gait. Denies any redness, discharge, swelling at the site of port. Also denies any chest pain, SOB, cough, fever, palpitations. Assessment and Plan: Gram Negative bacteremia: Likely infected chemo Port S/P Attempted Port -A-Cath removal and thoracentesis Follow up Blood and Plural fluid cultures Continue IV Cefepime DC IV fluids, Aspirin Lactic acid: wnl Appreciate Help from consultants Vascular Surgery consulted for port removal Repeat CXR S/P thoracentesis: No Pneumothorax Pleural fluid- consistent with malignancy, FU studies Sinus Tachycardia EKG: no sings of ischemia Secondary to above Stage IV metastatic Non small cell lung cancer: Small right pleural effusion S/P thoracentesis Hemeonch consulted for chemotherapy management GERD Stable, Continue PPI Hypertension: Stable Continue lisinopril Dyslipidemia: Continue stains DVT Px: SCDs for now Vital Signs: Date Time Temp Pulse Resp B/P Pulse Ox O2 Delivery O2 Flow Rate FiO2 03/06/16 16:06 36.5 95 18 134/71 98 Room Air 03/06/16 12:16 36.8 96 20 143/79 97 Room Air 03/06/16 07:53 Room Air 03/06/16 07:49 37.0 97 18 129/71 97 Room Air 03/06/16 04:00 36.7 97 20 118/53 97 Room Air 03/06/16 00:35 36.7 99 20 132/65 99 Room Air 03/06/16 00:00 Room Air 03/05/16 18:35 91 18 119/71 98 03/05/16 18:05 36.7 89 18 121/69 99 Room Air 03/05/16 17:35 96 Room Air 03/05/16 17:35 Room Air 03/05/16 17:35 36.6 89 16 118/55 96 Room Air 03/05/16 17:20 36.4 78 20 111/54 98 Room Air 03/05/16 17:10 82 18 107/62 100 Mask 10 03/05/16 17:01 36.4 85 12 101/58 100 Mask 10 Lab Results: Results Past 24 Hours Test 03/06/16 00:00 03/06/16 05:38 03/06/16 10:16 Range/Units Pleural Fluid Source RIGHT LUNG Pleural Fluid Color YELLOW Pleural Fluid Appearance CLEAR Pleural Fluid WBC 468 /uL Pleural Fluid RBC < 3000 /uL Pleural Fluid Polynuclear WBCs % 31.2 % Pleural Fluid Mononuclear WBCs % 68.8 % Pleural Fluid LDH 223 IU Pleural Fluid Glucose 107 mg/dl White Blood Count 5.01 4.8-10.8 K/uL Red Blood Count 3.90 4.7-6.1 M/uL Hemoglobin 10.1 14.0-18.0 g/dL Hematocrit 31.1 42-52 % Mean Corpuscular Volume 79.7 80-100 fL Mean Corpuscular Hemoglobin 25.9 25-34 pg Mean Corpuscular Hemoglobin Concent 32.5 32-36 g/dl RDW Standard Deviation 47.1 36.4-46.3 fL RDW Coefficient of Variation 16.1 11.5-14.5 % Platelet Count 131 130-400 K/uL Mean Platelet Volume 10.8 7.4-10.4 fL Sodium Level 142 136-145 mmol/L Potassium Level 3.9 3.5-5.1 mmol/L Chloride Level 109 98-107 mmol/L Carbon Dioxide Level 26 21-32 mmol/L Anion Gap 7.0 3-11 mmol/L Blood Urea Nitrogen 16 7-18 mg/dl Creatinine 0.88 0.60-1.40 mg/dl Est Creatinine Clear Calc Drug Dose 68.9 ml/min Estimated GFR () 98.1 Estimated GFR (Non- 84.6 BUN/Creatinine Ratio 18.3 10-20 Random Glucose 90 70-99 mg/dl Calcium Level 8.0 8.5-10.1 mg/dl Pleural Fluid pH 7.47 7.3-7.4 Microbiology Results 03/06/16 Acid Fast Stain, Received Pending 03/06/16 Mycobacterial Culture, Received Pending 03/06/16 Gram Stain - Final, Resulted 03/06/16 Bacterial Culture, Resulted Pending
[2016-03-06 20:26] VITALS: BP 133/74; PULSE 86; TEMP 36.4; O2SAT 96
[2016-03-06] MEDS: ZOLPIDEM TARTRATE 10 MG TAB PO SCH (20:57)
[2016-03-07] VITALS (7 sets, daily range): BP systolic 111–135; BP diastolic 61–77; PULSE 79–93; TEMP 36.3–36.8; O2SAT 92–98
[2016-03-07 05:58] LABS: BASO % 0.9 %; BASO ABS # 0.04 K/uL (0-0.2); COMPLETE YES; EOS % 4.4 %; HEMATOCRIT 31.6 % (42-52); IG% 0.2 %; LYMPH % 11.8 %; LYMPH ABS # 0.53 K/uL (1.2-3.4); MEAN CELL VOLUME 80.6 fL (80-100); MEAN CORPUSCULAR HGB CONC 32.3 g/dl (32-36); MEAN PLATELET VOLUME 10.4 fL (7.4-10.4); MONO % 10.4 %; NEUT % 72.3 %; PLATELET COUNT 127 K/uL (130-400); RED BLOOD COUNT 3.92 M/uL (4.7-6.1); WHITE BLOOD COUNT 4.51 K/uL (4.8-10.8)
[2016-03-07 06:31] LABS: BUN/CREATININE RATIO 14.9 (10-20); CALCIUM 8.1 mg/dl (8.5-10.1); CREATININE 0.92 mg/dl (0.60-1.40); POTASSIUM 3.9 mmol/L (3.5-5.1)
[2016-03-07] MEDS: CEFEPIME IV 2000 MG in DEXTROSE 5% 100ML IV SCH ×2 (08:39→19:46)
[2016-03-07] MEDS: ATORVASTATIN 40 MG TAB PO SCH (08:40)
[2016-03-07] MEDS: LISINOPRIL 5 MG TAB PO SCH (08:40)
[2016-03-07] MEDS: PANTOprazole SOD 40 MG TAB PO SCH (08:40)
[2016-03-07] MEDS: FERROUS GLUCONATE 324 MG TAB PO SCH (08:40)
[2016-03-07] MEDS: OXYCODONE/ACETAMINOPHEN 5-325 TAB PO PRN ×2 (14:38→19:46)
--- NOTE | 2016-03-07 17:02 | Progress Note ---
Internal Med Progress Note Date of Service: Mar 07, 2016. Provider Documentation: SUBJECTIVE: Patient is seen and examined at bedside. States feeling well. Denies any chest pain, SOB. Family bedside. OBJECTIVE: Vital Signs-as noted below General Appearance: WD/WN, no apparent distress Head: normocephalic, atraumatic Eyes: normal inspection ENT: hearing grossly normal Neck: supple, No JVD Respiratory/Chest: lungs CTA, normal breath sounds, no respiratory distress Chest: Port a Cath on left side in bandage Cardiovascular: S1, S2, No murmur Abdomen/GI: normal bowel sounds, non tender, soft Back: normal inspection Extremities/Musculoskelatal: normal inspection, no calf tenderness, no pedal edema Neurologic/Psych: alert, normal mood/affect, oriented x 3, No focal deficits Skin: normal color, warm/dry Lab data as noted below. ASSESSMENT & PLAN: Patient is a 76 Yr old male with PMH of Metastatic Non small cell lung cancer, Htn, HLP who is currently underdosing chemotherapy per recommendations from presented to ED for evaluation and management after being noted to have positive blood cultures. Patient states during chemotherapy yesterday he experienced extreme weakness associated with shaking chills and unsteady gait. Denies any redness, discharge, swelling at the site of port. Also denies any chest pain, SOB, cough, fever, palpitations. Assessment and Plan: Gram Negative bacteremia: Likely infected chemo Port S/P Attempted Port -A-Cath removal and thoracentesis Blood and Plural fluid cultures: No growth to date Continue IV Cefepime Lactic acid: wnl Appreciate Help from consultants Vascular Surgery consulted for port removal: pending consult Repeat CXR S/P thoracentesis: No Pneumothorax Pleural fluid- consistent with malignancy Sinus Tachycardia EKG: no sings of ischemia Stable Secondary to above Stage IV metastatic Non small cell lung cancer: Small right pleural effusion S/P thoracentesis Hemeonch consulted GERD Stable, Continue PPI Hypertension: Stable Continue lisinopril Dyslipidemia: Continue stains DVT Px: SCDs for now Vital Signs: Date Time Temp Pulse Resp B/P Pulse Ox O2 Delivery O2 Flow Rate FiO2 03/07/16 16:00 Room Air 03/07/16 11:52 36.4 90 18 135/75 92 Room Air 03/07/16 07:36 Room Air 03/07/16 07:15 36.8 85 16 124/73 97 Room Air 03/07/16 05:20 36.7 88 18 125/71 97 Room Air 03/07/16 04:00 Room Air 03/07/16 00:15 36.3 91 18 126/73 96 Room Air 03/07/16 00:00 Room Air 03/06/16 20:26 36.4 86 18 133/74 96 Room Air Lab Results: Results Past 24 Hours Test 03/07/16 05:28 Range/Units White Blood Count 4.51 4.8-10.8 K/uL Red Blood Count 3.92 4.7-6.1 M/uL Hemoglobin 10.2 14.0-18.0 g/dL Hematocrit 31.6 42-52 % Mean Corpuscular Volume 80.6 80-100 fL Mean Corpuscular Hemoglobin 26.0 25-34 pg Mean Corpuscular Hemoglobin Concent 32.3 32-36 g/dl Platelet Count 127 130-400 K/uL Mean Platelet Volume 10.4 7.4-10.4 fL Neutrophils (%) (Auto) 72.3 % Lymphocytes (%) (Auto) 11.8 % Monocytes (%) (Auto) 10.4 % Eosinophils (%) (Auto) 4.4 % Basophils (%) (Auto) 0.9 % Neutrophils # (Auto) 3.26 1.4-6.5 K/uL Lymphocytes # (Auto) 0.53 1.2-3.4 K/uL Monocytes # (Auto) 0.47 0.11-0.59 K/uL Eosinophils # (Auto) 0.20 0-0.5 K/uL Basophils # (Auto) 0.04 0-0.2 K/uL RDW Standard Deviation 47.1 36.4-46.3 fL RDW Coefficient of Variation 16.1 11.5-14.5 % Immature Granulocyte % (Auto) 0.2 % Immature Granulocyte # (Auto) 0.01 0.00-0.02 K/uL Sodium Level 143 136-145 mmol/L Potassium Level 3.9 3.5-5.1 mmol/L Chloride Level 109 98-107 mmol/L Carbon Dioxide Level 26 21-32 mmol/L Anion Gap 8.0 3-11 mmol/L Blood Urea Nitrogen 14 7-18 mg/dl Creatinine 0.92 0.60-1.40 mg/dl Est Creatinine Clear Calc Drug Dose 65.9 ml/min Estimated GFR () 94.6 Estimated GFR (Non- 81.6 BUN/Creatinine Ratio 14.9 10-20 Random Glucose 96 70-99 mg/dl Calcium Level 8.1 8.5-10.1 mg/dl
--- NOTE | 2016-03-07 18:22 | SURGERY PROGRESS NOTE ---
DATE: 03/07/2016 SUBJECTIVE: Mr. Barrera was seen today on 03/07/2016. Mr. Barrera is without complaints today. He looks fine. The problem with Mr. Barrera is his Port-A-Cath which is unable to be removed. He certainly does not look septic. The fluid from his pleural catheter is benign and does not have any evidence of infection. We will continue to drain this. It was drained for about 250 today, which is a bit more than it was drained before. We will continue to follow along while he is here.
[2016-03-07] MEDS: ZOLPIDEM TARTRATE 10 MG TAB PO SCH (20:57)
[2016-03-08] VITALS (13 sets, daily range): BP systolic 112–137; BP diastolic 65–76; PULSE 57–107; TEMP 36.3–37; O2SAT 94–99
[2016-03-08 05:49] LABS: BASO % 1.6 %; BASO ABS # 0.07 K/uL (0-0.2); COMPLETE YES; EOS % 4.9 %; HEMATOCRIT 33.6 % (42-52); IG% 0.2 %; LYMPH % 14.4 %; LYMPH ABS # 0.64 K/uL (1.2-3.4); MEAN CELL VOLUME 79.6 fL (80-100); MEAN CORPUSCULAR HEMOGLOBIN 25.4 pg (25-34); MEAN CORPUSCULAR HGB CONC 31.8 g/dl (32-36); MEAN PLATELET VOLUME 10.3 fL (7.4-10.4); NEUT % 71.9 %; PLATELET COUNT 131 K/uL (130-400); RED BLOOD COUNT 4.22 M/uL (4.7-6.1); WHITE BLOOD COUNT 4.45 K/uL (4.8-10.8)
[2016-03-08 06:11] LABS: BUN/CREATININE RATIO 16.2 (10-20); CALCIUM 8.4 mg/dl (8.5-10.1); POTASSIUM 4.1 mmol/L (3.5-5.1)
[2016-03-08] MEDS: CEFEPIME IV 2000 MG in DEXTROSE 5% 100ML IV SCH (07:41)
[2016-03-08] MEDS: FERROUS GLUCONATE 324 MG TAB PO SCH (07:41)
[2016-03-08] MEDS: LISINOPRIL 5 MG TAB PO SCH (07:42)
[2016-03-08] MEDS: ATORVASTATIN 40 MG TAB PO SCH (07:42)
[2016-03-08] MEDS: PANTOprazole SOD 40 MG TAB PO SCH (07:42)
--- NOTE | 2016-03-08 08:05 | Anesthesiology Progress Note ---
Anesthesia Post Op Note Date & Time Mar 08, 2016 at 08:05 Vital Signs Pain Intensity: 0.0 Vital Signs Past 12 Hours Date Time Temp Pulse Resp B/P Pulse Ox O2 Delivery O2 Flow Rate FiO2 03/08/16 07:20 36.3 57 18 94 Room Air 03/08/16 04:00 98 Room Air 03/08/16 04:00 36.8 69 20 120/72 96 Room Air 03/08/16 00:00 98 Room Air 03/07/16 23:56 36.6 79 18 113/65 98 Room Air Notes Mental Status: alert / awake / arousable, participated in evaluation Pt Amnestic to Procedure: Yes Nausea / Vomiting: adequately controlled Pain: adequately controlled Airway Patency, RR, SpO2: stable & adequate BP & HR: stable & adequate Hydration State: stable & adequate Anesthetic Complications: no major complications apparent
--- NOTE | 2016-03-08 09:14 | Surgery Consultation ---
Consultation Date of Service Mar 08, 2016. (Kaitlynn Yuan, GUEVARA) Chief Complaint bacteremia, need infusaport removal (Kaitlynn Yuan, GUEVARA) History of Present Illness The patient is a 76 year old male with multiple medical problems, including lung ca, seen in consultation today for infusaport removal. Pt had infusaport inserted over 6 yr ago and has been using it for chemo. Had positive blood cx at oncologist office on 03/04 and was sent to [facility] for infusaport removal. Attempt was made for removal, however, catheter was unable to be removed d/t scar tissue. Admits fatigue, malaise. Denies VOSS, fever, chills, chest pain, SOB, abd pain, N/V, rest pain, claudication, other complaints. (Kaitlynn Yuan, GUEVARA) Vitals Vital Signs Past 12 Hours Date Time Temp Pulse Resp B/P Pulse Ox O2 Delivery O2 Flow Rate FiO2 03/08/16 07:20 36.3 57 18 94 Room Air 03/08/16 04:00 98 Room Air 03/08/16 04:00 36.8 69 20 120/72 96 Room Air 03/08/16 00:00 98 Room Air 03/07/16 23:56 36.6 79 18 113/65 98 Room Air (Kaitlynn Yuan, GUEVARA) Allergies Coded Allergies: No Known Allergies (Unverified , 03/05/16) Home Medications Scheduled Aspirin Enteric Coated (Ecotrin Or Generic), 81 MG PO DAILY Atorvastatin (Lipitor), 40 MG PO DAILY Denosumab (Xgeva), 1 SYR IM Q6WK Ferrous Gluconate (Ferrous Gluconate), 324 MG PEG DAILY Guaifenesin (Robitussin), 5 ML PO PRN Lisinopril (Zestril), 5 MG PO DAILY Nivolumab (Opdivo), 1 DOSE IV Q2WK Omeprazole (Prilosec), 40 MG PO DAILY Ondansetron Hcl (Zofran), 8 MG PO Q8HR PRN Oxycodone/Acetaminophen 5MG/325MG (Percocet 5MG/325MG), 1 TABLET PO Q4-6HR PRN Prochlorperazine Maleate (Compazine), 10 MG PO Q4-6HR PRN Zolpidem Tartrate (Ambien), 10 MG PO HS Scheduled PRN Lorazepam (Ativan), 0.5 MG PO BID PRN for Anxiety Problem List Medical Problems: (1) Dyslipidemia (2) GERD (gastroesophageal reflux disease) (3) HTN (hypertension) (4) Lung cancer (5) Lung cancer, upper lobe Surgical Problems: (1) History of tonsillectomy and adenoidectomy (Kaitlynn Yuan, BELKYSC) Surgical / Medical History Hx Cardiac Surgery: No Hx Abdominal Surgery: No Hx Cancer Surgery: No Hx Thoracic Surgery: No Hx Orthopedic: No Hx Urinary Tract Surgery: No HX Other Surgery: No Past Medical/Surgical History: Cancer, Hypertension (Kaitlynn Yuan, BELKYSC) Family History FH: cardiovascular disease Stroke (Kaitlynn Yuan PA-C) FH: cardiovascular disease Stroke (Darci Garcia M.D.) Social History Smoking Status: Former Smoker Hx Tobacco Use In Past Year?: No (Quit smoking ~8yrs ago (1PPD). ) Hx Alcohol Use - Type & Amnt: No Hx Substance Use -Type & Amnt: No (Kaitlynn Yuan, GREGG-C) Review of Systems Constitutional: + malaise, No chills, No fever Skin: No change in color Eyes: No visual changes ENMT: No sore throat Respiratory: No LOCKHART, No cough, No hemoptysis, No orthopnea, No short of breath Cardiovascular: No chest pain, No edema, No intermittent claudication, No palpitations, No syncope Gastrointestinal: No abdominal pain, No nausea, No vomiting Neurologic: + lethargy, No dizziness, No headache, No numbness, No tingling ( Kaitlynn Yuan, PA-C) Physical Exam Constitutional: General Apperance: heathly-appearing, well-nourished, well-developed Level of Distress: NAD Psychiatric: Mental Status: active & alert, normal mood, normal affect Orientation: oriented except where noted, to time, to place, to person Memory: recent memory normal, remote memory normal Head: normocephalic, atraumatic Eyes: EOM: EOMI ENMT: normal ENT inspection, hearing grossly normal Neck: supple, trachea midline Lungs: Respiratory effort: no dyspnea Auscultation: no wheezing, no rales/crackles, no rhonchi, decreased breath sounds Cardiovascular: Apical Impulse: not displaced Heart Auscultation: RRR, no rubs, no gallops Peripheral Pulses: Pulses: full and equal, in all extremities except if noted Bruits: none appreciated Carotid Pulse: normal on the left, normal on the right Brachial Pulses: normal on the left, normal on the right Radial Pulse: normal on the left, normal on the right Femoral Pulse: normal on the left, normal on the right Posterior Tibialis Pulse: decreased on the left, decreased on the right Dorsalis Pedis Pulse: decreased on the left, decreased on the right Abdomen: Bowel Sounds: normal Inspection & Palpation: soft, no tenderness, guarding & rebound Musculoskeletal: normal strength (5/5 throughout), normal tone Extremities: Upper Right: no cyanosis, no edema, no varicosities Upper Left: no cyanosis, no edema, no varicosities Lower Right: no cyanosis, no edema, no varicosities Lower Left: no cyanosis, no edema, no varicosities Neurologic: Cranial Nerves: grossly intact Sensation: grossly intact (Kaitlynn Yuan, PA-C) Assessment and Plan ASSESSMENT and PLAN: Bacteremia Lung ca Pt discussed with Dr Garcia, recommends removal of infusaport with possible endovascular approach today. Procedure, risks, benefits and alternatives discussed with pt, he expresses understanding and agreement. (Kaitlynn Yuan, PA-C) Patient was seen, examined, and chart reviewed. Agree with exam and treatment plan of the Vascular PA. I have discussed the risks options and benefits of the procedure with the patient. The patient understands the risks options and benefits and agrees to the procedure. (Darci Garcia M.D.)
[2016-03-08] MEDS ORDERED: LIDOCAINE HCL 1% 20 ML VIAL ONE ×2 (11:39→12:04)
[2016-03-08] MEDS ORDERED: FENTANYL CITRATE INJ 50 MCG/1 ML 2 ML VIAL ONE (11:39)
[2016-03-08] MEDS ORDERED: MIDAZOLAM HCL 1 MG/ML 2ML VIAL ONE ×2 (11:39→12:09)
[2016-03-08] MEDS ORDERED: FENTANYL CITRATE INJ 50 MCG/1 ML 2 ML VIAL IV ONE ×2 (12:10)
[2016-03-08] MEDS ORDERED: MIDAZOLAM HCL 1 MG/ML 2ML VIAL IV ONE ×2 (12:11→12:25)
[2016-03-08] MEDS ORDERED: LIDOCAINE HCL 1% 20 ML VIAL INJ ONE ×2 (12:21→12:25)
--- NOTE | 2016-03-08 12:23 | Procedure Note ---
Post-Moderate Sedation Plan General Date of Moderate Sedation Mar 08, 2016. Vital Signs: Vital Signs Past 12 Hours Date Time Temp Pulse Resp B/P Pulse Ox O2 Delivery O2 Flow Rate FiO2 03/08/16 08:00 96 Room Air 03/08/16 08:00 36.6 88 18 137/76 96 Room Air 03/08/16 07:20 36.3 57 18 94 Room Air 03/08/16 04:00 98 Room Air 03/08/16 04:00 36.8 69 20 120/72 96 Room Air Review - Discharge Plan Post Moderate Sedation Plan: On clinical assessment, the patient appears to have tolerated the conscious sedation without complications. Patient is recovering as anticipated. Patient will continue to be monitored by nursing and may be discharged when conscious sedation discharge criteria are met.
--- NOTE | 2016-03-08 12:24 | [facility] Post Operative Brief Note ---
Immediate Operative Summary Operative Date Mar 08, 2016. Pre-Operative Diagnosis Infected Aport Post-Operative Diagnosis Same Procedure(s) Performed Removal of Aport, Conscious Sedation from [address] Garcia [employer]er Surgeon(s) None Estimated Blood Loss 10 Findings entire catheter removed Specimens A: Explant Aport Anesthesia Local with moderate conscious sedation Complication(s) None Disposition Recovery Room / PACU
--- NOTE | 2016-03-08 12:27 | Procedure Note ---
Pre-Mod Sedation Assessment General Date of Moderate Sedation: Mar 08, 2016. Vital Signs: Vital Signs Past 12 Hours Date Time Temp Pulse Resp B/P Pulse Ox O2 Delivery O2 Flow Rate FiO2 03/08/16 08:00 96 Room Air 03/08/16 08:00 36.6 88 18 137/76 96 Room Air 03/08/16 07:20 36.3 57 18 94 Room Air 03/08/16 04:00 98 Room Air 03/08/16 04:00 36.8 69 20 120/72 96 Room Air Pre-Sedation Airway Assessment Oral Cavity: Dentures Smoking Status: Former Smoker Mallampati Classification: Class I ASA Classification: Class II Notes The planned sedation has been discussed with the patient and consent obtained. I have identified the patient, determined the appropriateness of sedation and have assessed the patient immediately prior to the procedure. All medicine(s) and interventions are by my order.
[2016-03-08] MEDS: OXYCODONE/ACETAMINOPHEN 5-325 TAB PO PRN ×2 (14:45→20:43)
--- NOTE | 2016-03-08 17:18 | Infectious Disease Progress Nt ---
Progress Note Date of Service Mar 08, 2016. Subjective Pt evaluation today including: conversation w/ patient, physical exam, chart review, lab review, review of studies, conversation w/ risk assessment consultant, review of inpatient medication list Patient now s/p removal of A-port by Dr. Garcia. Stable at present post op. Prior cultures from oncologist growing quinolone-sensitive Serratia. No fever. All Other Systems: Reviewed and Negative Medications Current Inpatient Medications Medications (Trade) Dose Ordered Sig/Gal Route Start Time Stop Time Status Last Admin Dose Admin Acetaminophen (Tylenol Tab) 650 mg Q4H PRN PO 03/05/16 10:15 04/04/16 10:14 03/05/16 13:44 650 MG Ondansetron HCl (Zofran Inj) 4 mg Q6H PRN IV 03/05/16 10:15 04/04/16 10:14 Atorvastatin Calcium (Lipitor Tab) 40 mg DAILY PO 03/06/16 09:00 04/05/16 08:59 03/07/16 08:40 40 MG Lisinopril (Zestril Tab) 5 mg DAILY PO 03/06/16 09:00 04/05/16 08:59 03/07/16 08:40 5 MG Lorazepam (Ativan Tab) 0.5 mg BID PRN PO 03/05/16 10:30 04/04/16 10:29 03/05/16 13:44 0.5 MG Oxycodone/ Acetaminophen (Percocet 5-325MG Tab) 1 tab Q6H PRN PO 03/05/16 10:30 03/19/16 10:29 03/08/16 14:45 1 TAB Prochlorperazine Maleate (Compazine Tab) 10 mg Q4H PRN PO 03/05/16 10:30 04/04/16 10:29 Zolpidem Tartrate (Ambien Tab) 10 mg HS PO 03/05/16 21:00 04/04/16 20:59 03/07/16 20:57 10 MG Ferrous Gluconate (Ferrous Gluconate Tab) 324 mg DAILY PO 03/06/16 09:00 04/05/16 08:59 03/07/16 08:40 324 MG Pantoprazole Sodium (Protonix Tab) 40 mg DAILY PO 03/06/16 09:00 04/05/16 08:59 03/07/16 08:40 40 MG Cefepime HCl 1 ea 1 ea UD PRN N/A 03/05/16 13:15 04/04/16 13:14 Cefepime HCl/ Dextrose (Maxipime IV/D5 100ml) 112.5 ml @ 225 mls/hr Q12H IV 03/05/16 20:00 03/08/16 19:59 03/08/16 07:41 225 MLS/HR Ciprofloxacin (Cipro Tab) 500 mg BID PO 03/09/16 09:00 03/18/16 08:59 Objective Vital Signs Date Time Temp Pulse Resp B/P Pulse Ox O2 Delivery O2 Flow Rate FiO2 03/08/16 16:00 Room Air 03/08/16 15:18 36.4 100 20 122/68 99 Room Air 03/08/16 13:15 36.5 89 20 112/66 97 Room Air 03/08/16 13:05 36.5 89 20 122/65 96 Room Air 03/08/16 12:55 36.7 91 16 118/69 96 Room Air 03/08/16 12:45 36.6 98 16 120/70 96 Room Air 03/08/16 12:35 37.0 97 16 121/67 96 Room Air 03/08/16 11:41 36.6 107 20 120/71 97 Room Air 03/08/16 08:00 96 Room Air 03/08/16 08:00 36.6 88 18 137/76 96 Room Air 03/08/16 07:20 36.3 57 18 94 Room Air 03/08/16 04:00 98 Room Air 03/08/16 04:00 36.8 69 20 120/72 96 Room Air 03/08/16 00:00 98 Room Air 03/07/16 23:56 36.6 79 18 113/65 98 Room Air 03/07/16 19:54 36.7 93 18 111/61 96 Room Air 03/07/16 17:28 36.8 89 18 132/77 97 Room Air Physical Exam General Appearance: WD/WN, no apparent distress Eyes: normal inspection, EOMI, sclerae normal ENT: normal ENT inspection, hearing grossly normal, pharynx normal Neck: supple, no adenopathy, thyroid normal, trachea midline Respiratory/Chest: chest non-tender, lungs clear, normal breath sounds, no respiratory distress Cardiovascular: regular rate, rhythm, no gallop, no murmur Abdomen: normal bowel sounds, non tender, soft, no organomegaly Extremities: non-tender, no calf tenderness Neurologic/Psychiatric: alert, oriented x 3 Skin: normal color, no rash, + pertinent finding (chest wall dressing intact) Lymphatic: no adenopathy Laboratory Results Last 24 Hours Test 03/08/16 05:13 White Blood Count 4.45 K/uL Red Blood Count 4.22 M/uL Hemoglobin 10.7 g/dL Hematocrit 33.6 % Mean Corpuscular Volume 79.6 fL Mean Corpuscular Hemoglobin 25.4 pg Mean Corpuscular Hemoglobin Concent 31.8 g/dl Platelet Count 131 K/uL Mean Platelet Volume 10.3 fL Neutrophils (%) (Auto) 71.9 % Lymphocytes (%) (Auto) 14.4 % Monocytes (%) (Auto) 7.0 % Eosinophils (%) (Auto) 4.9 % Basophils (%) (Auto) 1.6 % Neutrophils # (Auto) 3.20 K/uL Lymphocytes # (Auto) 0.64 K/uL Monocytes # (Auto) 0.31 K/uL Eosinophils # (Auto) 0.22 K/uL Basophils # (Auto) 0.07 K/uL RDW Standard Deviation 46.1 fL RDW Coefficient of Variation 15.7 % Immature Granulocyte % (Auto) 0.2 % Immature Granulocyte # (Auto) 0.01 K/uL Sodium Level 142 mmol/L Potassium Level 4.1 mmol/L Chloride Level 105 mmol/L Carbon Dioxide Level 27 mmol/L Anion Gap 10.0 mmol/L Blood Urea Nitrogen 16 mg/dl Creatinine 1.00 mg/dl Est Creatinine Clear Calc Drug Dose 60.6 ml/min Estimated GFR () 85.6 Estimated GFR (Non- 73.8 BUN/Creatinine Ratio 16.2 Random Glucose 112 mg/dl Calcium Level 8.4 mg/dl Assessment and Plan 76-year-old male with stage IV lung cancer now with Serratia bacteremia, most likely source would be infected [id number]. Port now removed. Given isolate quinolone-sensitive, can treat with oral ciprofloxacin 500 mg tid for 10 days. Will follow.
--- NOTE | 2016-03-08 19:16 | Progress Note ---
Internal Med Progress Note Date of Service: Mar 08, 2016. Provider Documentation: SUBJECTIVE: Patient is seen and examined at bedside S/P port removal today. Denies any chest pain, SOB. Family bedside. OBJECTIVE: Vital Signs-as noted below General Appearance: WD/WN, no apparent distress Head: normocephalic, atraumatic Eyes: normal inspection ENT: hearing grossly normal Neck: supple, No JVD Respiratory/Chest: lungs CTA, normal breath sounds, no respiratory distress Chest: Port a Cath on left side in bandage Cardiovascular: S1, S2, No murmur Abdomen/GI: normal bowel sounds, non tender, soft Back: normal inspection Extremities/Musculoskelatal: normal inspection, no calf tenderness, no pedal edema Neurologic/Psych: alert, normal mood/affect, oriented x 3, No focal deficits Skin: normal color, warm/dry Lab data as noted below. ASSESSMENT & PLAN: Patient is a 76 Yr old male with PMH of Metastatic Non small cell lung cancer, Htn, HLP who is currently underdosing chemotherapy per recommendations from presented to ED for evaluation and management after being noted to have positive blood cultures. Patient states during chemotherapy yesterday he experienced extreme weakness associated with shaking chills and unsteady gait. Denies any redness, discharge, swelling at the site of port. Also denies any chest pain, SOB, cough, fever, palpitations. 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: Small right pleural effusion S/P thoracentesis FU with Heme onch as outpatient GERD Stable, Continue PPI Hypertension: Stable Continue lisinopril Dyslipidemia: Continue stains DVT Px: SCDs for now Vital Signs: Date Time Temp Pulse Resp B/P Pulse Ox O2 Delivery O2 Flow Rate FiO2 03/08/16 16:00 Room Air 03/08/16 15:18 36.4 100 20 122/68 99 Room Air 03/08/16 13:15 36.5 89 20 112/66 97 Room Air 03/08/16 13:05 36.5 89 20 122/65 96 Room Air 03/08/16 12:55 36.7 91 16 118/69 96 Room Air 03/08/16 12:45 36.6 98 16 120/70 96 Room Air 03/08/16 12:35 37.0 97 16 121/67 96 Room Air 03/08/16 11:41 36.6 107 20 120/71 97 Room Air 03/08/16 08:00 96 Room Air 03/08/16 08:00 36.6 88 18 137/76 96 Room Air 03/08/16 07:20 36.3 57 18 94 Room Air 03/08/16 04:00 98 Room Air 03/08/16 04:00 36.8 69 20 120/72 96 Room Air 03/08/16 00:00 98 Room Air 03/07/16 23:56 36.6 79 18 113/65 98 Room Air 03/07/16 19:54 36.7 93 18 111/61 96 Room Air Lab Results: Results Past 24 Hours Test 03/08/16 05:13 Range/Units White Blood Count 4.45 4.8-10.8 K/uL Red Blood Count 4.22 4.7-6.1 M/uL Hemoglobin 10.7 14.0-18.0 g/dL Hematocrit 33.6 42-52 % Mean Corpuscular Volume 79.6 80-100 fL Mean Corpuscular Hemoglobin 25.4 25-34 pg Mean Corpuscular Hemoglobin Concent 31.8 32-36 g/dl Platelet Count 131 130-400 K/uL Mean Platelet Volume 10.3 7.4-10.4 fL Neutrophils (%) (Auto) 71.9 % Lymphocytes (%) (Auto) 14.4 % Monocytes (%) (Auto) 7.0 % Eosinophils (%) (Auto) 4.9 % Basophils (%) (Auto) 1.6 % Neutrophils # (Auto) 3.20 1.4-6.5 K/uL Lymphocytes # (Auto) 0.64 1.2-3.4 K/uL Monocytes # (Auto) 0.31 0.11-0.59 K/uL Eosinophils # (Auto) 0.22 0-0.5 K/uL Basophils # (Auto) 0.07 0-0.2 K/uL RDW Standard Deviation 46.1 36.4-46.3 fL RDW Coefficient of Variation 15.7 11.5-14.5 % Immature Granulocyte % (Auto) 0.2 % Immature Granulocyte # (Auto) 0.01 0.00-0.02 K/uL Sodium Level 142 136-145 mmol/L Potassium Level 4.1 3.5-5.1 mmol/L Chloride Level 105 98-107 mmol/L Carbon Dioxide Level 27 21-32 mmol/L Anion Gap 10.0 3-11 mmol/L Blood Urea Nitrogen 16 7-18 mg/dl Creatinine 1.00 0.60-1.40 mg/dl Est Creatinine Clear Calc Drug Dose 60.6 ml/min Estimated GFR () 85.6 Estimated GFR (Non- 73.8 BUN/Creatinine Ratio 16.2 10-20 Random Glucose 112 70-99 mg/dl Calcium Level 8.4 8.5-10.1 mg/dl Microbiology Results 03/08/16 Gram Stain - Final, Resulted 03/08/16 Wound Culture, Resulted Pending
--- NOTE | 2016-03-08 20:34 | Hematology/Oncology Prog Note ---
Hematology/Onc Progress Note Date of Service Mar 08, 2016. Diagnoses Medical Problems: (1) Bacteremia Status: Acute (2) Infected venous access port Status: Acute (3) Stage IV lung cancer Medications Medications Administered Medications (Trade) Dose Ordered Sig/Gal Route Start Time Stop Time Status Last Admin Dose Admin Sodium Chloride (Nss 1000ml) 1,000 ml @ 125 mls/hr Q8H STAT IV 03/05/16 07:37 03/05/16 15:17 DC 03/05/16 08:04 125 MLS/HR Piperacillin Sod/ Tazobactam Sod (Zosyn Iv) 4.5 gm NOW STAT IV 03/05/16 07:37 03/05/16 07:40 DC 03/05/16 08:03 4.5 GM Acetaminophen 650 mg 650 mg Q4H PRN PO 03/05/16 10:15 04/04/16 10:14 03/05/16 13:44 650 MG Sodium Chloride (Nss 1000ml) 1,000 ml @ 100 mls/hr Q10H IV 03/05/16 15:00 03/06/16 16:25 DC 03/06/16 11:07 100 MLS/HR Aspirin (Ecotrin Tab) 81 mg DAILY PO 03/06/16 09:00 03/06/16 16:25 DC 03/06/16 08:51 81 MG Atorvastatin Calcium (Lipitor Tab) 40 mg DAILY PO 03/06/16 09:00 04/05/16 08:59 03/07/16 08:40 40 MG Lisinopril (Zestril Tab) 5 mg DAILY PO 03/06/16 09:00 04/05/16 08:59 03/07/16 08:40 5 MG Lorazepam (Ativan Tab) 0.5 mg BID PRN PO 03/05/16 10:30 04/04/16 10:29 03/05/16 13:44 0.5 MG Oxycodone/ Acetaminophen (Percocet 5-325MG Tab) 1 tab Q6H PRN PO 03/05/16 10:30 03/19/16 10:29 03/08/16 14:45 1 TAB Zolpidem Tartrate (Ambien Tab) 10 mg HS PO 03/05/16 21:00 04/04/16 20:59 03/07/16 20:57 10 MG Ferrous Gluconate (Ferrous Gluconate Tab) 324 mg DAILY PO 03/06/16 09:00 04/05/16 08:59 03/07/16 08:40 324 MG Pantoprazole Sodium (Protonix Tab) 40 mg DAILY PO 03/06/16 09:00 04/05/16 08:59 03/07/16 08:40 40 MG Bupivacaine HCl/ Epinephrine Bitart (Sensorcaine/ Epinephrine 0.5% Mpf 1:200,000) 8 ml ONE ONCE INJ 03/05/16 17:03 03/05/16 17:04 DC 03/05/16 15:43 8 ML Neomycin/ Polymyxin/ Bacitracin 1 appln 1 appln ONE ONCE TOP 03/05/16 17:04 03/05/16 17:05 DC 03/05/16 16:50 1 APPLN Cefepime HCl/ Dextrose (Maxipime IV/D5 100ml) 112.5 ml @ 225 mls/hr Q12H IV 03/05/16 20:00 03/08/16 19:59 03/08/16 07:41 225 MLS/HR Lidocaine HCl (Xylocaine 1% Inj (Local)) 20 ml ONE ONCE INJ 03/08/16 12:21 03/08/16 12:23 DC 03/08/16 12:21 20 ML Midazolam HCl (Versed Inj) 3 mg ONE ONCE IV 03/08/16 12:11 03/08/16 12:23 DC 03/08/16 12:11 3 MG Fentanyl Citrate (Fentanyl Inj) 100 mcg ONE ONCE IV 03/08/16 12:10 03/08/16 12:23 DC 03/08/16 12:10 100 MCG Lidocaine HCl (Xylocaine 1% Inj (Local)) 20 ml ONE ONCE INJ 03/08/16 12:25 03/08/16 12:26 DC 03/08/16 12:25 20 ML Midazolam HCl (Versed Inj) 3 mg ONE ONCE IV 03/08/16 12:25 03/08/16 12:26 DC 03/08/16 12:11 3 MG Fentanyl Citrate (Fentanyl Inj) 100 mcg ONE ONCE IV 03/08/16 12:10 03/08/16 12:26 DC 03/08/16 12:10 100 MCG Subjective Mr. Barrera is well known to medical oncology. He has stage IV non-small cell lung cancer with a right infrahilar mass and multiple areas of bony metastatic disease. He has received 4 prior lines of therapy, with most recent therapy with afatinib. He is also on Xgeva every 6 weeks for bony metastases. He had increasing right pleural effusion and a PET-CT scan in October 2015. He saw Dr. 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 A PleurX catheter was placed in December 2015. He then had a follow-up PET-CT scan in early February 2016 that showed disease progression in the chest, mainly right lung and the right pleural space. There is a small lesion in the left lobe of the liver which is also suspicious. He was then started on nivolumab on 03/04/2016. At the patient 's office visit on 03/04/2016, he was feeling feverish in the way of chills when his port was accessed for therapy. Blood cultures were drawn at the time of the visit and a preliminary report was available by 2016. Dr. Machado called the patient early in the morning and informed him that he had blood cultures positive for gram negative organisms and to report immediately to the emergency room. He reported to [facility] and was admitted. He was covered empirically with cefepime. Infectious Disease has been consulted. The port was attempted to be removed on the day of admission, but this proved to be technically difficult. Therefore, vascular surgery has been consulted and that port was removed successfully today. The patient states that since he has been admitted he has not had chills or documented fever. He notes no dyspnea or cough. He states that Dr. Del Valle was consulted for his PleurX catheter status. He reports the pleural drainage was up to 250 ml, increased from baseline. Cultures of pleural fluid are pending. He reports typically at home he only has to drink his PleurX catheter every other day. He reports an increased appetite in the last few days. He has no nausea or bowel issues. He denies headache or dizziness. Vital Signs Vital Signs Past 12 Hours Date Time Temp Pulse Resp B/P Pulse Ox O2 Delivery O2 Flow Rate FiO2 03/08/16 16:00 Room Air 03/08/16 15:18 36.4 100 20 122/68 99 Room Air 03/08/16 13:15 36.5 89 20 112/66 97 Room Air 03/08/16 13:05 36.5 89 20 122/65 96 Room Air 03/08/16 12:55 36.7 91 16 118/69 96 Room Air 03/08/16 12:45 36.6 98 16 120/70 96 Room Air 03/08/16 12:35 37.0 97 16 121/67 96 Room Air 03/08/16 11:41 36.6 107 20 120/71 97 Room Air 03/08/16 08:00 96 Room Air 03/08/16 08:00 36.6 88 18 137/76 96 Room Air 03/08/16 07:20 36.3 57 18 94 Room Air Physical Exam Head: normocephalic, atraumatic Lungs: Respiratory Effort: no dyspnea Auscuitation: no wheezing, no rales/crackles Cardiovascular: Heart Auscultation: RRR Abdomen: Inspection & Palpation: soft, non-distended, no masses Liver: no hepatomegaly Extremities: no cyanosis, no edema Neurologic: Cranial Nerves: grossly intact Laboratory 03/06/16 05:38 03/07/16 05:28 Red Blood Count 3.92, Mean Corpuscular Volume 80.6, Mean Corpuscular Hemoglobin 26.0, Mean Corpuscular Hemoglobin Concent 32.3, Mean Platelet Volume 10.4, Neutrophils (%) (Auto) 72.3, Lymphocytes (%) (Auto) 11.8, Monocytes (%) (Auto) 10.4, Eosinophils (%) (Auto) 4.4, Basophils (%) (Auto) 0.9, Neutrophils # (Auto ) 3.26, Lymphocytes # (Auto) 0.53, Monocytes # (Auto) 0.47, Eosinophils # (Auto ) 0.20, Basophils # (Auto) 0.04 03/08/16 05:13 Red Blood Count 4.22, Mean Corpuscular Volume 79.6, Mean Corpuscular Hemoglobin 25.4, Mean Corpuscular Hemoglobin Concent 31.8, Mean Platelet Volume 10.3, Neutrophils (%) (Auto) 71.9, Lymphocytes (%) (Auto) 14.4, Monocytes (%) (Auto) 7.0, Eosinophils (%) (Auto) 4.9, Basophils (%) (Auto) 1.6, Neutrophils # (Auto) 3.20, Lymphocytes # (Auto) 0.64, Monocytes # (Auto) 0.31, Eosinophils # (Auto) 0.22, Basophils # (Auto) 0.07 03/06/16 05:38 03/07/16 05:28 03/08/16 05:13 Test 03/06/16 00:00 03/06/16 05:38 03/06/16 10:16 03/07/16 05:28 Pleural Fluid Source RIGHT LUNG Pleural Fluid Color YELLOW Pleural Fluid Appearance CLEAR Pleural Fluid WBC 468 /uL Pleural Fluid RBC < 3000 /uL Pleural Fluid Polynuclear WBCs % 31.2 % Pleural Fluid Mononuclear WBCs % 68.8 % Pleural Fluid LDH 223 IU Pleural Fluid Glucose 107 mg/dl Red Blood Count 3.90 M/uL (4.7-6.1) 3.92 M/uL (4.7-6.1) Mean Corpuscular Volume 79.7 fL (80-100) 80.6 fL (80-100) Mean Corpuscular Hemoglobin 25.9 pg (25-34) 26.0 pg (25-34) Mean Corpuscular Hemoglobin Concent 32.5 g/dl (32-36) 32.3 g/dl (32-36) RDW Standard Deviation 47.1 fL (36.4-46.3) 47.1 fL (36.4-46.3) RDW Coefficient of Variation 16.1 % (11.5-14.5) 16.1 % (11.5-14.5) Mean Platelet Volume 10.8 fL (7.4-10.4) 10.4 fL (7.4-10.4) Anion Gap 7.0 mmol/L (3-11) 8.0 mmol/L (3-11) Est Creatinine Clear Calc Drug Dose 68.9 ml/min 65.9 ml/min Estimated GFR () 98.1 94.6 Estimated GFR (Non- 84.6 81.6 BUN/Creatinine Ratio 18.3 (10-20) 14.9 (10-20) Calcium Level 8.0 mg/dl (8.5-10.1) 8.1 mg/dl (8.5-10.1) Pleural Fluid pH 7.47 (7.3-7.4) White Blood Count 4.51 K/uL (4.8-10.8) Hemoglobin 10.2 g/dL (14.0-18.0) Hematocrit 31.6 % (42-52) Platelet Count 127 K/uL (130-400) Neutrophils (%) (Auto) 72.3 % Lymphocytes (%) (Auto) 11.8 % Monocytes (%) (Auto) 10.4 % Eosinophils (%) (Auto) 4.4 % Basophils (%) (Auto) 0.9 % Neutrophils # (Auto) 3.26 K/uL (1.4-6.5) Lymphocytes # (Auto) 0.53 K/uL (1.2-3.4) Monocytes # (Auto) 0.47 K/uL (0.11-0.59) Eosinophils # (Auto) 0.20 K/uL (0-0.5) Basophils # (Auto) 0.04 K/uL (0-0.2) Immature Granulocyte % (Auto) 0.2 % Immature Granulocyte # (Auto) 0.01 K/uL (0.00-0.02) Test 03/08/16 05:13 White Blood Count 4.45 K/uL (4.8-10.8) Red Blood Count 4.22 M/uL (4.7-6.1) Hemoglobin 10.7 g/dL (14.0-18.0) Hematocrit 33.6 % (42-52) Mean Corpuscular Volume 79.6 fL (80-100) Mean Corpuscular Hemoglobin 25.4 pg (25-34) Mean Corpuscular Hemoglobin Concent 31.8 g/dl (32-36) Platelet Count 131 K/uL (130-400) Mean Platelet Volume 10.3 fL (7.4-10.4) Neutrophils (%) (Auto) 71.9 % Lymphocytes (%) (Auto) 14.4 % Monocytes (%) (Auto) 7.0 % Eosinophils (%) (Auto) 4.9 % Basophils (%) (Auto) 1.6 % Neutrophils # (Auto) 3.20 K/uL (1.4-6.5) Lymphocytes # (Auto) 0.64 K/uL (1.2-3.4) Monocytes # (Auto) 0.31 K/uL (0.11-0.59) Eosinophils # (Auto) 0.22 K/uL (0-0.5) Basophils # (Auto) 0.07 K/uL (0-0.2) RDW Standard Deviation 46.1 fL (36.4-46.3) RDW Coefficient of Variation 15.7 % (11.5-14.5) Immature Granulocyte % (Auto) 0.2 % Immature Granulocyte # (Auto) 0.01 K/uL (0.00-0.02) Anion Gap 10.0 mmol/L (3-11) Est Creatinine Clear Calc Drug Dose 60.6 ml/min Estimated GFR () 85.6 Estimated GFR (Non- 73.8 BUN/Creatinine Ratio 16.2 (10-20) Calcium Level 8.4 mg/dl (8.5-10.1) Chest xray from 03/06/2016: Right PleurX catheter remains in place. Small right pleural effusion unchanged. Assessment & Plan (1) Non-small cell carcinoma of lung, stage 4 Assessment & Plan: Recent progressive disease noted parenchymally and with increase in right pleural effusion (? liver lesion) on PET/CT from early 03/16. Therapy changed from afatinib to nivolumab, received 1st infusion 03/04/16. Remains on Xgeva for bone metastasis. (2) Bacteremia Status: Acute Assessment & Plan: Secondary to infected venous access device- has been removed as of today by vascular surgery. Patient has been on empiric cefepime; blood cultures obtained at [facility] with no growth to date. Blood cultures obtained outpatient at [facility] hematology/oncology positive for serratia sensitive to fluoroquinolone. Report faxed to ID and called office to inform Dr. Hodge that results were available for review. He has received report and plans to transition patient to ciprofloxacin 500 mg TID for 10 days. Final culture from removed port pending. Pleurx catheter cultured no organism to date. AFB stain negative, mycobacterium culture pending. (3) Infected venous access port Status: Acute Assessment & Plan: See # 2. I performed history and physical examination of the patient. I have discussed the patient's case, impression and plan with Carisa Rosas PA-C. Her note reflects my findings and plan. Recently he was started on chemotherapy with single agent nivolumab, will continue Navelbine every other week, he is due for next cycle of chemotherapy next week on Tuesday. He will complete the course of antibiotic with ciprofloxacin as recommended by Dr. Hodge. Rick Machado MD Hematology/Oncology
[2016-03-08] MEDS: ZOLPIDEM TARTRATE 10 MG TAB PO SCH (20:43)
[2016-03-09 05:51] LABS: BASO % 1.4 %; BASO ABS # 0.07 K/uL (0-0.2); COMPLETE YES; EOS % 3.6 %; HEMATOCRIT 35.5 % (42-52); IG% 1.8 %; LYMPH % 13.3 %; LYMPH ABS # 0.66 K/uL (1.2-3.4); MEAN CELL VOLUME 78.7 fL (80-100); MEAN CORPUSCULAR HEMOGLOBIN 25.7 pg (25-34); MEAN CORPUSCULAR HGB CONC 32.7 g/dl (32-36); MEAN PLATELET VOLUME 10.2 fL (7.4-10.4); MONO % 6.8 %; NEUT % 73.1 %; PLATELET COUNT 133 K/uL (130-400); RED BLOOD COUNT 4.51 M/uL (4.7-6.1); WHITE BLOOD COUNT 4.98 K/uL (4.8-10.8)
[2016-03-09 06:17] LABS: BUN/CREATININE RATIO 15.8 (10-20); CALCIUM 8.8 mg/dl (8.5-10.1); CREATININE 0.87 mg/dl (0.60-1.40)
--- NOTE | 2016-03-09 07:19 | DIAGNOSTIC IMAGING REPORT ---
SINGLE VIEW CHEST CLINICAL HISTORY: Status post infusion port removal. FINDINGS: An AP, portable, upright chest radiograph is compared to study dated 03/06/2016 and correlated with PET CT dated 11/05/2015. The examination is degraded by portable technique, apical lordotic positioning, and patient rotation. The left subclavian central venous infusion port has been removed as compared to previous. Skin clips project over the left upper chest. The heart is normal for projection. There is atherosclerotic calcification of the thoracic aorta. Emphysema and chronic interstitial thickening is similar to previous. A pleural drain is again seen at the right lung base. There is a small right pleural effusion. No pneumothorax is seen. The skeletal structures are osteopenic. The bony thorax is grossly intact. Degenerative change is noted throughout the thoracic spine. Arthritic change and calcific tendinopathy is noted in the right shoulder. IMPRESSION: 1. A left subclavian central venous infusion port has been removed. No pneumothorax is seen. 2. Emphysema. There is no airspace consolidation typical for pneumonia. 3. A pleural drain at the right lung base is unchanged. A small right pleural effusion persists. Electronically signed by: Joshua Kingston M.D. 03/09/2016 7:17 AM Dictated Date/Time: 03/09/2016 7:14 AM
[2016-03-09 08:00] VITALS: O2SAT 96
--- NOTE | 2016-03-09 08:09 | DIAGNOSTIC IMAGING REPORT ---
DATE OF PROCEDURE: 03/08/2016 PREOPERATIVE DIAGNOSIS: Infected Infusaport. POSTOPERATIVE DIAGNOSIS: Same. PROCEDURES: 1. Removal of Infusaport. 2. Moderate sedation, 19 minutes. SURGEON: Dr. Garcia. ANESTHETIC: Local with moderate conscious sedation. PROCEDURE INDICATIONS: The patient is a 76-year-old gentleman who has had an Infusaport in for 6 years. He is now bacteremic from the Infusaport. An attempt was made to remove it last week which was unsuccessful. He was taken to the angiogram suite today in hopes of removing the catheter with the possible aid of endovascular approach if needed. The patient understood the risks, options and benefits and agreed to have this procedure. DESCRIPTION OF PROCEDURE: The patient was taken to the angio suite and placed in supine position. After the left side of the neck and right groin were prepped and draped in a sterile manner, a local anesthetic was administered. The subcutaneous sutures were removed that were placed on Tuesday. The Infusaport was taken up into the wound. This catheter was felt underneath the collarbone. This area was anesthetized and an incision was made infraclavicularly. This was done where the catheter was seen on x-ray coursing underneath the clavicle. The catheter was identified. It was freed up from the surrounding tissue. Gentle constant retraction was applied. The catheter slid out fairly easily. It was tight on the way out, most likely from the fibrin sheath around it. The catheter was removed in its entirety. This was confirmed with x-ray. The port and catheter were then removed from the subcutaneous tunnel. The fibrin capsule around the Infusaport was also excised and removed. Wound was then closed in the usual fashion using running 3-0 Vicryl suture for subcutaneous layer and josé for the skin. Sterile dressings were applied and the patient left the angio suite in good condition and tolerated the procedure well.
[2016-03-09] MEDS: OXYCODONE/ACETAMINOPHEN 5-325 TAB PO PRN (08:18)
[2016-03-09] MEDS: PANTOprazole SOD 40 MG TAB PO SCH (08:19)
[2016-03-09] MEDS: LISINOPRIL 5 MG TAB PO SCH (08:19)
[2016-03-09] MEDS: FERROUS GLUCONATE 324 MG TAB PO SCH (08:19)
[2016-03-09] MEDS: ATORVASTATIN 40 MG TAB PO SCH (08:20)
--- NOTE | 2016-03-09 08:56 | Progress Note ---
Internal Med Progress Note Date of Service: Mar 09, 2016. Provider Documentation: SUBJECTIVE: Patient is seen and examined at bedside S/P port removal yesterday. Doing well. Denies any complaints. OBJECTIVE: Vital Signs-as noted below General Appearance: WD/WN, no apparent distress Head: normocephalic, atraumatic Eyes: normal inspection ENT: hearing grossly normal Neck: supple, No JVD Respiratory/Chest: lungs CTA, normal breath sounds, no respiratory distress Chest: Port a Cath on left side in bandage Cardiovascular: S1, S2, No murmur Abdomen/GI: normal bowel sounds, non tender, soft Back: normal inspection Extremities/Musculoskelatal: normal inspection, no calf tenderness, no pedal edema Neurologic/Psych: alert, normal mood/affect, oriented x 3, No focal deficits Skin: normal color, warm/dry Lab data as noted below. ASSESSMENT & PLAN: Patient is a 76 Yr old male with PMH of Metastatic Non small cell lung cancer, Htn, HLP who is currently underdosing chemotherapy per recommendations from presented to ED for evaluation and management after being noted to have positive blood cultures. Patient states during chemotherapy yesterday he experienced extreme weakness associated with shaking chills and unsteady gait. Denies any redness, discharge, swelling at the site of port. Also denies any chest pain, SOB, cough, fever, palpitations. Assessment and Plan: Gram Negative bacteremia: Secondary to Infected chemo Port S/P removal of infusion port POD#1 S/P Attempted Port -A-Cath removal and thoracentesis Blood cultures prior to admit: Serratia Marcescens Wound culture: Gram Negative Bacilli.-Pending Blood and Plural fluid cultures from hospitalization : No growth to date S/P IV Cefepime Continue Ciprofloxacin 500mg BID for 10 days in total Lactic acid: wnl Appreciate Help from consultants Appreciate Vascular Surgery help Pleural fluid- consistent with malignancy Needs FU with in 1 week, in 2 weeks Sinus Tachycardia Resolved EKG: no sings of ischemia Stable Secondary to above Stage IV metastatic Non small cell lung cancer: Small right pleural effusion S/P thoracentesis FU with [facility] coral as outpatient for chemotherapy GERD Stable, Continue PPI Hypertension: Stable Continue lisinopril Dyslipidemia: Continue stains DVT Px: SCDs for now Vital Signs: Date Time Temp Pulse Resp B/P Pulse Ox O2 Delivery O2 Flow Rate FiO2 03/09/16 05:02 Room Air 03/09/16 00:00 Room Air 03/08/16 23:10 36.5 90 20 117/71 97 Room Air 03/08/16 20:14 Room Air 03/08/16 19:27 36.7 97 17 135/75 97 Room Air 03/08/16 16:00 Room Air 03/08/16 15:18 36.4 100 20 122/68 99 Room Air 03/08/16 13:15 36.5 89 20 112/66 97 Room Air 03/08/16 13:05 36.5 89 20 122/65 96 Room Air 03/08/16 12:55 36.7 91 16 118/69 96 Room Air 03/08/16 12:45 36.6 98 16 120/70 96 Room Air 03/08/16 12:35 37.0 97 16 121/67 96 Room Air 03/08/16 11:41 36.6 107 20 120/71 97 Room Air Lab Results: Results Past 24 Hours Test 03/09/16 05:08 Range/Units White Blood Count 4.98 4.8-10.8 K/uL Red Blood Count 4.51 4.7-6.1 M/uL Hemoglobin 11.6 14.0-18.0 g/dL Hematocrit 35.5 42-52 % Mean Corpuscular Volume 78.7 80-100 fL Mean Corpuscular Hemoglobin 25.7 25-34 pg Mean Corpuscular Hemoglobin Concent 32.7 32-36 g/dl Platelet Count 133 130-400 K/uL Mean Platelet Volume 10.2 7.4-10.4 fL Neutrophils (%) (Auto) 73.1 % Lymphocytes (%) (Auto) 13.3 % Monocytes (%) (Auto) 6.8 % Eosinophils (%) (Auto) 3.6 % Basophils (%) (Auto) 1.4 % Neutrophils # (Auto) 3.64 1.4-6.5 K/uL Lymphocytes # (Auto) 0.66 1.2-3.4 K/uL Monocytes # (Auto) 0.34 0.11-0.59 K/uL Eosinophils # (Auto) 0.18 0-0.5 K/uL Basophils # (Auto) 0.07 0-0.2 K/uL RDW Standard Deviation 44.5 36.4-46.3 fL RDW Coefficient of Variation 15.4 11.5-14.5 % Immature Granulocyte % (Auto) 1.8 % Immature Granulocyte # (Auto) 0.09 0.00-0.02 K/uL Sodium Level 140 136-145 mmol/L Potassium Level 4.0 3.5-5.1 mmol/L Chloride Level 103 98-107 mmol/L Carbon Dioxide Level 28 21-32 mmol/L Anion Gap 9.0 3-11 mmol/L Blood Urea Nitrogen 14 7-18 mg/dl Creatinine 0.87 0.60-1.40 mg/dl Est Creatinine Clear Calc Drug Dose 69.7 ml/min Estimated GFR () 98.5 Estimated GFR (Non- 85.0 BUN/Creatinine Ratio 15.8 10-20 Random Glucose 101 70-99 mg/dl Calcium Level 8.8 8.5-10.1 mg/dl Microbiology Results 03/08/16 Gram Stain - Final, Resulted 03/08/16 Wound Culture - Preliminary, Resulted Gram Negative Bacilli
[2016-03-09] MEDS ORDERED: CIPROFLOXACIN 500 MG TAB PO SCH (09:00)
[2016-03-09] MEDS ORDERED: CPR500 PO (11:01)
--- NOTE | 2016-03-09 11:09 | Discharge Instructions ---
Discharge Instructions Admission Reason for Admission: Bacteremia Discharge Discharge Diagnosis / Problem: Gram Negative Bacteremia: Secondary to infected chemo port Discharge Goals Goal(s): Decrease discomfort, Improve function Activity Recommendations Activity Limitations: resume your previous activity Exercise/Sports Limitations: as tolerated . Instructions / Follow-Up Instructions / Follow-Up Follow up with (PCP) on Mar 12, 2016 at 10:50am Follow up with Kaitlynn Grewal ( 's PA) on Mar 25 2016, at 2:00pm Follow up with on Mar 16 at 1:15pm Complete the antibiotic course as prescribed. Seek immediate medical attention your symptoms reoccur or worsen. Also follow up with for chemotherapy Current Hospital Diet Patient's current hospital diet: Regular Diet Discharge Diet Recommended Diet: Regular Diet Procedures Procedures Performed: Removal of Aport, Conscious Sedation from 1200 to 1219 Pending Studies Studies pending at discharge: yes List of pending studies: Pleural fluid cultures Medical Emergencies . Who to Call and When: Medical Emergencies: If at any time you feel your situation is an emergency, please call 911 immediately. . Non-Emergent Contact Non-Emergency issues call your: Primary Care Provider, Surgeon Call Non-Emergent contact if: you have a fever, wound has increased drainage, wound has increased redness, wound has increased pain, you have any medication questions . . "Provider Documentation" section prepared by Ruperto Rodrigues. VTE Core Measure Inpt VTE Proph given/why not?: SCD's
[2016-03-09 11:35] VITALS: BP 117/71; PULSE 90; TEMP 36.5; O2SAT 96
--- NOTE | 2016-03-09 12:56 | Discharge Summary ---
Discharge Summary Admission Date: Mar 05, 2016 at 10:24 Discharge Date: Mar 09, 2016 Discharge Disposition: Home Principal Diagnosis: Gram Negative Bacteremia: Secondary to infected chemo port Secondary Diagnoses/Problems: Stage IV metastatic Non small cell lung cancer, GERD, Hypertension, Dyslipidemia Procedures: Tunneled catheter removal Thoracentesis CXR; 1. No cystic change from the prior study 2. Stable increased right hilar density 3. Small right pleural effusion. No change in the position right-sided pleural catheter Consultations: CT surgery Vascular surgery General Surgery Infectious disease Medication Reconciliation New Medications: Ciprofloxacin (Ciprofloxacin HCl) 500 Mg Tab 500 MG PO BID, #20 TAB Continued Medications: Aspirin Enteric Coated (Ecotrin Or Generic) 81 Mg Tab 81 MG PO DAILY, 0 Refills Atorvastatin (Lipitor) 40 Mg Tab 40 MG PO DAILY, TAB Denosumab (Xgeva) 120 Mg/1.7 Ml Inj 1 SYR IM Q6WK Ferrous Gluconate (Ferrous Gluconate) 324 Mg Tab 324 MG PEG DAILY Guaifenesin (Robitussin) Syrp 5 ML PO PRN NEEDED FOR COUGH Lisinopril (Zestril) 5 Mg Tab 5 MG PO DAILY, TAB Lorazepam (Ativan) 0.5 Mg Tab 0.5 MG PO BID PRN for Anxiety, TAB Nivolumab (Opdivo) Unknown Strength Inj 1 DOSE IV Q2WK Omeprazole (Prilosec) 40 Mg Cap 40 MG PO DAILY, CAP Ondansetron Hcl (Zofran) 8 Mg Tab 8 MG PO Q8HR PRN, 0 Refills as needed for nausea/vomiting Oxycodone/Acetaminophen 5MG/325MG (Percocet 5MG/325MG) Tab 1 TABLET PO Q4-6HR PRN, 0 Refills PAIN Prochlorperazine Maleate (Compazine) 10 Mg Tab 10 MG PO Q4-6HR PRN as needed for nausea/vomiting. Zolpidem Tartrate (Ambien) 10 Mg Tab 10 MG PO HS, 0 Refills Admission Information HPI (per Admitting provider): This is a 76 y/o female with PMHx of Stage IV Lung CA currently undergoing chemotherapy, HTN, Dyslipidemia and other problems as outlined below who was referred to the ED by Dr. Machado for positive blood cultures. During his chemotherapy infusion yesterday patient developed shaking chills. Port was de- accessed, blood cultures were drawn and chemotherapy was completed peripherally. Sxs are assoc with generalized weakness and unsteady gait. Pt denies overt evidence of port infection (tenderness, erythema, drainage). Pt reports an episode of similar sxs a few weeks ago. At that time his port was flushed, he received IV Rocephin in the ED and completed a course of Levaquin at home. Pt denies fevers, diaphoresis, chest pain, palpitations, SOB, wheezing , abd pain, N/V, bowel or bladder issues, LE edema ,calf pain, lightheadedness/ dizziness. In the ED, pt is tachy. He is afebrile with no leukocytosis. Pt is stable and will be admitted for further evaluation. Physical Exam (per Admitting): General Appearance: WD/WN, no apparent distress, + pertinent finding (Pt is laying in bed with at bedside ) Head: normocephalic, atraumatic Eyes: normal inspection ENT: hearing grossly normal Neck: supple Respiratory/Chest: chest non-tender, lungs clear, normal breath sounds, no respiratory distress, + pertinent finding (no erythema or drainage noted around port site) Cardiovascular: + tachycardia Abdomen/GI: normal bowel sounds, non tender, soft Back: normal inspection Extremities/Musculoskelatal: normal inspection, no calf tenderness, no pedal edema Neurologic/Psych: alert, normal mood/affect, oriented x 3 Skin: normal color, warm/dry, + pertinent finding (Chemo port on left side of chest) Hospital Course Patient is a 76 Yr old male with PMH of Metastatic Non small cell lung cancer, Htn, HLP who is currently underdosing chemotherapy per recommendations from presented to ED for evaluation and management after being noted to have positive blood cultures. Patient states during chemotherapy yesterday he experienced extreme weakness associated with shaking chills and unsteady gait. Denies any redness, discharge, swelling at the site of port. Also denies any chest pain, SOB, cough, fever, palpitations. Patient was diagnosed to have bacteremia secondary to infected port. Attempt was made for removal of tunneled catheter initially by surgery, however, catheter was unable to be removed due to scar tissue. Vascular surgery was involved and was successful in removing the catheter. Patient blood cultures grew Serratia Marcescens and on recommendations from ID patient was initially treated with IV Cefepime and later switched to PO ciprofloxacin. Patient also had thoracentesis and studies of pleural fluid was consistent with malignancy. Patient improved clinically and was discharged home in stable condition. Assessment and Plan: Gram Negative bacteremia: Secondary to Infected chemo Port S/P removal of infusion port POD#1 S/P Attempted Port -A-Cath removal and thoracentesis Blood cultures prior to admit: Serratia Marcescens Wound culture: Gram Negative Bacilli.-Pending Blood and Plural fluid cultures from hospitalization : No growth to date S/P IV Cefepime Continue Ciprofloxacin 500mg BID for 10 days in total Lactic acid: wnl Appreciate Help from consultants Appreciate Vascular Surgery help Pleural fluid- consistent with malignancy Needs FU with in 1 week, in 2 weeks Sinus Tachycardia Resolved EKG: no sings of ischemia Stable Secondary to above Stage IV metastatic Non small cell lung cancer: Small right pleural effusion S/P thoracentesis FU with [facility] as outpatient for chemotherapy GERD Stable, Continue PPI Hypertension: Stable Continue lisinopril Dyslipidemia: Continue stains DVT Px: SCDs for now Total time spent on discharge = This includes examination of the patient, discharge planning, medication reconciliation, and communication with other providers. Discharge Instructions Discharge Instructions Admission Reason for Admission: Bacteremia Discharge Discharge Diagnosis / Problem: Gram Negative Bacteremia: Secondary to infected chemo port Discharge Goals Goal(s): Decrease discomfort, Improve function Activity Recommendations Activity Limitations: resume your previous activity Exercise/Sports Limitations: as tolerated . Instructions / Follow-Up Instructions / Follow-Up Follow up with (PCP) on Mar 12, 2016 at 10:50am Follow up with Kaitlynn Grewal ( 's PA) on Mar 25 2016, at 2:00pm Follow up with on Mar 16 at 1:15pm Complete the antibiotic course as prescribed. Seek immediate medical attention your symptoms reoccur or worsen. Also follow up with for chemotherapy Current Hospital Diet Patient's current hospital diet: Regular Diet Discharge Diet Recommended Diet: Regular Diet Procedures Procedures Performed: Removal of Aport, Conscious Sedation from 1200 to 1219 Pending Studies Studies pending at discharge: yes List of pending studies: Pleural fluid cultures Medical Emergencies . Who to Call and When: Medical Emergencies: If at any time you feel your situation is an emergency, please call 911 immediately. . Non-Emergent Contact Non-Emergency issues call your: Primary Care Provider, Surgeon Call Non-Emergent contact if: you have a fever, wound has increased drainage, wound has increased redness, wound has increased pain, you have any medication questions . . "Provider Documentation" section prepared by Ruperto Rodrigues. VTE Core Measure Inpt VTE Proph given/why not?: SCD's
[2016-07-22] MEDS ORDERED: MRPSR15 PO (10:28)
[2016-07-22] MEDS ORDERED: ATOR-24 PO (10:28)
[2016-07-22] MEDS ORDERED: DENOINJ (10:28)
[2016-07-22] MEDS ORDERED: ASPI81TA28 PO (10:28)
[2016-07-22] MEDS ORDERED: LORA-741 PO (10:28)
[2016-07-22] MEDS ORDERED: MULT-506 PO (10:28)
[2016-07-22] MEDS ORDERED: PRLSR20 PO (10:28)
[2016-07-22] MEDS ORDERED: OXYC-57 PO (10:28)
[2016-07-22] MEDS ORDERED: CHLO12TA2 PO (10:28)
[2016-07-22] MEDS ORDERED: GUAISYP4 PO (10:28)
[2016-07-22] MEDS ORDERED: FERR325T18 PO (10:28)
[2016-07-22] MEDS ORDERED: LISI-729 PO (10:28)
== END 2016-03-09 11:44 | disposition home or self-care (01) | DRG 315 ==
LOC: ENRESERVTM → ENRESERVDT → C.EDB 07:08 → C.EDINP 10:24 → C.MED 17:32
PROVIDERS: ADMIT Internal Medicine; ATTEND Internal Medicine
PROC: 0JPT3XZ Removal of Tunneled Vascular Access Device from Trunk Subcutaneous Tissue and Fascia, Percutaneous Approach (ICD-10-PCS; principal; 2016-03-08 12:00)
DX: T82.7XXA Infection and inflammatory reaction due to other cardiac and vascular devices, implants and grafts, initial encounter (principal); C78.00 Secondary malignant neoplasm of unspecified lung; J91.0 Malignant pleural effusion; C79.51 Secondary malignant neoplasm of bone; I10 Essential (primary) hypertension; K21.9 Gastro-esophageal reflux disease without esophagitis; Y83.8 Other surgical procedures as the cause of abnormal reaction of the patient, or of later complication, without mention of misadventure at the time of the procedure; E78.5 Hyperlipidemia, unspecified; Z87.891 Personal history of nicotine dependence; Z79.82 Long term (current) use of aspirin; Z82.49 Family history of ischemic heart disease and other diseases of the circulatory system; B96.89 Other specified bacterial agents as the cause of diseases classified elsewhere; Z92.21 Personal history of antineoplastic chemotherapy

== ENCOUNTER → 2016-03-23 | Outpatient (CLI) | payer OTHER ==
[~2016-03-23] MED LIST changes: -AFAT1TAB2 PO; +ASPI81TA28 PO; +ATOR-24 PO; -CEPH-570 PO; +CHLO12TA2 PO; +CPR500 PO; +DENOINJ; +FERR325T18 PEG; +FERR325T18 PO; -FRRG PO; +GUAISYP4 PO; +LORA-741 PO; +MRPSR15 PO; +MULT-506 PO; +NIVO1INJ IV; +OMEP40CA36 PO; +PRLSR20 PO; -ROSU40TA PO; -[UNRECOGNIZED DRUG - REMARK] PO; -[UNRECOGNIZED DRUG - REMARK] PO
--- NOTE | 2016-03-23 09:37 | DIAGNOSTIC IMAGING REPORT ---
CHEST 2 VIEWS ROUTINE CLINICAL HISTORY: Pleural effusion COMPARISON STUDY: 03/09/2016 FINDINGS: The cardiac and mediastinal contours remain stable. There is stable increased density right hilum. There is a right basilar chest tube. There is a trace right pleural effusion. There is no lobar consolidation. There is mild right basal interstitial thickening. [place] project over the left chest. There is a 7 mm left basilar nodule. As this was not visualized the prior study, this may represent a nipple shadow.[ IMPRESSION: 1. No evidence of pneumothorax 2. No change the position right-sided pleural drain 3. Stable interstitial thickening at the right lung base 4. Stable increased density of the right hilum 5. 7 mm left basilar nodule Electronically signed by: Ollie Montoya M.D. 03/23/2016 9:35 AM Dictated Date/Time: 03/23/2016 9:32 AM
== END | disposition home or self-care (01) ==
LOC: C.RAD1850 09:18
PROVIDERS: ATTEND Surgery
DX: J90 Pleural effusion, not elsewhere classified (principal); R91.1 Solitary pulmonary nodule; R91.8 Other nonspecific abnormal finding of lung field

== ENCOUNTER → 2016-04-05 | Outpatient (CLI) | payer OTHER ==
--- NOTE | 2016-04-05 14:28 | DIAGNOSTIC IMAGING REPORT ---
CHEST 2 VIEWS ROUTINE CLINICAL HISTORY: J90 Pleural effusion dyspnea COMPARISON STUDY: 03/23/2016 FINDINGS: Slight decrease in nodularity of the right hilar/perihilar region. Drainage catheter right base. There is nonvisualization of the nodular density left base on the prior study. No evidence pneumothorax. IMPRESSION: Improving nodularity right hilar region with no significant nodularity left base. Unchanged position of a right basilar drainage catheter Electronically signed by: Tavon Yanes M.D. 04/05/2016 2:27 PM Dictated Date/Time: 04/05/2016 2:25 PM
== END | disposition home or self-care (01) ==
LOC: C.RAD1850 14:01
PROVIDERS: ATTEND Surgery
DX: J90 Pleural effusion, not elsewhere classified (principal)

== ENCOUNTER → 2016-04-06 | Day surgery (SDC) | payer OTHER ==
--- NOTE | 2016-04-06 14:38 | Discharge Instructions ---
Discharge Instructions Visit Reason for Visit: Talc Push, Pleural Effusion//Pleurex Removal 04/06 Discharge Discharge Diagnosis / Problem: Pleural Effusion Discharge Goals Goal(s): Decrease discomfort, Improve function, Increase independence Activity Recommendations Activity Limitations: resume your previous activity Anesthesia . Post Anesthesia Instructions: If you have had General Anesthesia or IV Sedation: * Do not drive today. * Resume driving when surgeon permits. * Do not make important decisions or sign legal documents today. * Call surgeon for: 1. Temperature elevations greater than 101 degrees F. 2. Uncontrollable pain. 3. Excessive bleeding. 4. Persistent nausea and vomiting. 5. Medication intolerance (nausea, vomiting or rash). * For nausea and vomiting use only clear liquids such as: tea, soda, bouillon until nausea subsides, then gradually increase diet as tolerated. * If you have any concerns or questions, call your surgeon's office. If physician is unavailable and it is an emergency, call 911 or go to the nearest emergency room. . Instructions / Follow-Up Instructions / Follow-Up 1. Appointment with Dr. Del Valle in 2 weeks. Office will call with date and time of appointment. You will need a chest x-ray prior to appointment. 2. Resume daily drainage of pleurex catheter. Diet Recommendations Recommended Home Diet: resume previous diet Pending Studies Studies pending at discharge: no Medical Emergencies . Who to Call and When: Medical Emergencies: If at any time you feel your situation is an emergency, please call 911 immediately. . Non-Emergent Contact Non-Emergency issues call your: Surgeon Call Non-Emergent contact if: you have a fever . . "Provider Documentation" section prepared by Bolivar Ann.
== END | disposition home or self-care (01) ==
LOC: C.ACU 14:10
PROVIDERS: ATTEND Surgery
DX: Z53.09 Procedure and treatment not carried out because of other contraindication (principal); Z48.03 Encounter for change or removal of drains; J90 Pleural effusion, not elsewhere classified

== ENCOUNTER → 2016-04-09 | Outpatient (CLI) | payer OTHER ==
--- NOTE | 2016-04-09 11:23 | DIAGNOSTIC IMAGING REPORT ---
CHEST 2 VIEWS ROUTINE CLINICAL HISTORY: Lung carcinoma. Right-sided chest tube. COMPARISON STUDY: 5617 FINDINGS: The cardiac and mediastinal contours remain stable. The right-sided chest tube remains unchanged in position. There is increasing right pleural effusion with associated right basilar airspace opacities likely atelectatic. The left lung appears clear.[ IMPRESSION: 1. Increasing right pleural effusion with associated right basilar atelectasis/consolidation 2. No evidence of pneumothorax Electronically signed by: Ollie Montoya M.D. 04/09/2016 11:21 AM Dictated Date/Time: 04/09/2016 11:21 AM
== END | disposition home or self-care (01) ==
LOC: C.RAD1850 11:02
PROVIDERS: ATTEND Surgery
DX: C34.90 Malignant neoplasm of unspecified part of unspecified bronchus or lung (principal)

== ENCOUNTER → 2016-04-15 | Outpatient (CLI) | payer OTHER ==
--- NOTE | 2016-04-15 10:12 | DIAGNOSTIC IMAGING REPORT ---
CHEST 2 VIEWS ROUTINE HISTORY: J90 Pleural [id number] COMPARISON: Chest 04/09/2016. FINDINGS: Mild right pleural thickening persists. Small right pleural effusion has decreased in size. Right chest tube has been removed. No definite pneumothorax. Small nodular density at the left lung base favors a nipple shadow. Otherwise, the left lung is clear. The heart is normal in size. Right hilar streaky densities have improved. IMPRESSION: 1. The right chest tube has been removed. No definite pneumothorax. 2. Small right pleural effusion and right hilar/basilar densities have also improved. Electronically signed by: Miguel Haynes M.D. 04/15/2016 10:10 AM Dictated Date/Time: 04/15/2016 10:08 AM
== END | disposition home or self-care (01) ==
LOC: C.RAD1850 09:48
PROVIDERS: ATTEND Surgery
DX: J90 Pleural effusion, not elsewhere classified (principal)

== ENCOUNTER → 2016-07-13 | Outpatient (CLI) | payer OTHER ==
[~2016-07-13] MED LIST changes: +LYR50 PO; +MORP30TA PO
--- NOTE | 2016-07-13 10:30 | DIAGNOSTIC IMAGING REPORT ---
CHEST 2 VIEWS ROUTINE HISTORY: Pleural effusion. COMPARISON: Chest 04/15/2016. FINDINGS: The heart is normal in size. No pneumothorax. The left lung is clear. Trace right pleural effusion has improved. Right infrahilar patchy density and interstitial thickening at the right lung base are slightly improved. IMPRESSION: 1. Trace right pleural effusion has improved. 2. Right infrahilar/basilar densities have also slightly improved Electronically signed by: Miguel Haynes M.D. 07/13/2016 10:29 AM Dictated Date/Time: 07/13/2016 10:27 AM
== END | disposition home or self-care (01) ==
LOC: C.RAD1850 10:10
PROVIDERS: ATTEND Physician Assistant
DX: J90 Pleural effusion, not elsewhere classified (principal)

== ENCOUNTER → 2016-07-16 | Outpatient (CLI) | payer OTHER ==
[~2016-07-16] MED LIST changes: +GADAVIST IV PRN
--- NOTE | 2016-07-16 12:31 | DIAGNOSTIC IMAGING REPORT ---
MRI THE PELVIS WITHOUT A WITH GADOLINIUM CLINICAL HISTORY: Metastatic lung carcinoma. Abnormal conventional x-ray. Fracture versus metastatic disease. COMPARISON STUDY: Outside study 7 cc of intravenous Gadavist. Dated 07/12/2016 FINDINGS: There are areas of marrow replacement involving the S1 and S2 segments. There is marrow replacement involving the left iliac bone. Disease extends into the right sacral canal. The findings are consistent with metastatic disease. IMPRESSION: Pathologic marrow replacement involving the left iliac bone, and right and central sacrum at the S1 and S2 levels. There is involvement of the right sacral canal. The findings are consistent with metastatic disease. Electronically signed by: Ollie Montoya M.D. 07/16/2016 12:30 PM Dictated Date/Time: 07/16/2016 12:25 PM
== END | disposition home or self-care (01) ==
LOC: C.MRI 10:41
PROVIDERS: ATTEND Physician Assistant
DX: C34.31 Malignant neoplasm of lower lobe, right bronchus or lung (principal); C79.51 Secondary malignant neoplasm of bone; M53.3 Sacrococcygeal disorders, not elsewhere classified

== ENCOUNTER → 2017-01-10 | Outpatient (CLI) | payer OTHER ==
[~2017-01-10] MED LIST changes: -ASPI81TA21 PO; -CPR500 PO; -DENOINJ IM; -FERR325T18 PEG; -GADAVIST IV PRN; -GUAI100L PO; -LYR50 PO; -MORP30TA PO; -NIVO1INJ IV; -OMEP40CA36 PO; -ONDA8TAB6 PO; -PROC1TAB5 PO; -ZOLP10TA PO
--- NOTE | 2017-01-10 10:48 | DIAGNOSTIC IMAGING REPORT ---
CHEST 2 VIEWS ROUTINE CLINICAL HISTORY: C34.90 LUNG ADENOCARCINOMA COMPARISON STUDY: 07/13/2016 FINDINGS: The heart is normal in size. There is a right infrahilar stranding, similar to the prior study. There is slight blunting right lateral costophrenic angle also stable. There is mild right basilar interstitial thickening. The left lung remains clear.[ IMPRESSION: No significant change from the preceding examination. A trace right pleural effusion persists. Electronically signed by: Ollie Montoya M.D. 01/10/2017 10:47 AM Dictated Date/Time: 01/10/2017 10:46 AM
== END | disposition home or self-care (01) ==
LOC: C.RAD 10:03
PROVIDERS: ATTEND Surgery
DX: C34.90 Malignant neoplasm of unspecified part of unspecified bronchus or lung (principal)

== ENCOUNTER → 2017-03-03 | Outpatient (CLI) | payer OTHER ==
[~2017-03-03] MED LIST changes: +CYM30 PO; +CYM60 PO; +DOCU-94 PO; +DXM/4 PO; +DXM4 PO; +GADAVIST IV PRN; -GUAISYP4 PO; +LYR50 PO; +MORP15TA PO; +MORP1CAP96 PO; +MORP1TAB11 PO; +MORP30TA PO; +MRLP17X PO; +ONDA-170 PO; +OXYC-164 PO; +OXYC-594 PO; +OXYC20TA50 PO; +PROC10TA PO; +ZOLP10TA PO; +[UNRECOGNIZED DRUG - OTHER] PO
--- NOTE | 2017-03-03 16:10 | DIAGNOSTIC IMAGING REPORT ---
MRI OF THE BRAIN WITHOUT AND WITH IV CONTRAST CLINICAL HISTORY: C34.31,C79.51,R29.898,R39.198 METASTATIC CARCINOMA. DIFFICULTY WITH BALANCE. MEMORY DIFFICULTY. COMPARISON STUDY: None TECHNIQUE: MRI of the brain was performed from the vertex to the skull base utilizing various T1 and T2 weighted sequences. Following the IV administration of 7 mL of Gadavist contrast, additional enhanced images were obtained. FINDINGS: Sagittal T1, axial diffusion, proton density and T2 weighted axial, coronal FLAIR, and pre and post axial T1-weighted images were acquired. These were supplemented with post gadolinium coronal T1 weighted images. No intra or extra-axial mass lesions are visualized. Axial diffusion-weighted images reveal no evidence of acute or subacute infarction. There is mild ventricular dilatation, likely secondary to global atrophy Proton density T2-weighted and FLAIR images reveal moderate foci of increased T2 signal within the white matter, likely on a small vessel basis. There are no abnormal flow voids. There is no evidence of pathologic enhancement. IMPRESSION: 1. No acute intracranial findings 2. No evidence of intracranial metastasis 3. Atrophy and moderate white matter disease likely a small vessel basis Electronically signed by: Ollie Montoya M.D. 03/03/2017 4:08 PM Dictated Date/Time: 03/03/2017 4:05 PM
--- NOTE | 2017-03-03 16:28 | DIAGNOSTIC IMAGING REPORT ---
MRI LUMBAR SPINE COMBINATION CLINICAL HISTORY: C34.31,C79.51,R29.898,R39.198 BACK PAIN. HISTORY OF METASTATIC LUNG CARCINOMA. TECHNIQUE: Sagittal and axial T1, T2 and STIR images were obtained. Images were acquired before and after the administration of 7 cc of intravenous Gadavist. COMPARISON STUDY: MRI the pelvis performed June 2016 OBSERVATIONS: There are areas of marrow replacement involving the T11, T12, L4, S1, S2, S3, and S4 vertebra. The appearance of the T11, T12, and L4 vertebra, raise the possibility of previously treated metastatic disease. There is enhancing epidural tumor extending from the L4-5 level to the S3 level. Areas of marrow replacement also involve the iliac bones. There is edema within the right posterior paraspinal muscles most pronounced at the sacral level. L1-2: There is a minimal circumferential disc bulge. There is no significant spinal or foraminal stenosis L2-3: There is a mild circumferential disc bulge. There is no significant spinal or foraminal stenosis L3-4: No disc protrusions or extrusions. No evidence of spinal canal or neural foraminal compromise. L4-5: There is a minimal circumferential disc bulge. There is no significant spinal or foraminal stenosis L5-S1: There is no significant disc bulge or disc herniation. The spinal canal is completely filled with enhancing soft tissue, likely representing epidural tumor. No abnormalities of the conus are visualized. The lower lumbar spinal canal and sacral canal is filled by enhancing soft tissue consistent with metastatic disease. IMPRESSION: 1. Extensive enhancing epidural soft tissue which begins at the L4-5 level, and extends to the S3 level. At the L5-S1 level through the visualized sacral levels, the spinal canal is completely filled with enhancing soft tissue consistent with epidural metastatic disease. 2. Multifocal areas of marrow replacement involving the T11, T12, L4, sacrum, and iliac bones, consistent with metastatic disease 3. There has been extensive interval progression of disease when compared the prior MRI of the pelvis performed in June 2016 Electronically signed by: Ollie Montoya M.D. 03/03/2017 4:26 PM Dictated Date/Time: 03/03/2017 4:14 PM
== END | disposition home or self-care (01) ==
LOC: C.MRI 14:26
PROVIDERS: ATTEND Physician Assistant
DX: C34.31 Malignant neoplasm of lower lobe, right bronchus or lung (principal); C79.51 Secondary malignant neoplasm of bone; R29.898 Other symptoms and signs involving the musculoskeletal system; R39.198 Other difficulties with micturition; R41.3 Other amnesia; R26.81 Unsteadiness on feet

== ENCOUNTER 2017-04-10 22:21 | Inpatient (IN) | payer OTHER ==
[~2017-04-10] VITALS: Ht 170.2 cm; Wt 66.1 kg
[~2017-04-10 22:21] MED LIST changes: -CYM30 PO; -CYM60 PO; -DXM4 PO; -GADAVIST IV PRN; -MORP15TA PO; -MORP1CAP96 PO; -MORP1TAB11 PO; -MRLP17X PO; -MRPSR15 PO; -ONDA-170 PO; +ONDA8TAB6 PO; -OXYC-164 PO; -OXYC-57 PO; -OXYC-594 PO; -PROC10TA PO; +PROC1TAB5 PO
[2017-04-10] MEDS ORDERED: SODIUM CHLORIDE 0.9% 1000ML 1,000 ML IV STA (22:57)
[2017-04-10] MEDS ORDERED: ACETAMINOPHEN 500 MG TAB PO STA (23:00)
--- NOTE | 2017-04-10 23:02 | EMERGENCY ROOM VISIT NOTE ---
History First contact with patient: 22:48 Chief Complaint: CONFUSION Stated Complaint: CONFUSED,LOW GRADE FEVER,TROUBLE WALKING Nursing Triage Summary: 5 radiation tx and chemo tx 1.5 wks ago since that time pt has become increasingly confused with fever starting on sat. increased pain , denies urinary sx denies NV History of Present Illness The patient is a 77 year old male who presents to the Emergency Room for evaluation of fevers and generalized weakness. Patient with history of Lung CA with lumbar/sacral mass that has been undergoing chemo/radiation. Chemo 1.5 wks ago and Radiation x 5 recently. Family notes over the last few days rapidly worsening weakness, fatigue, confusion and low grade fevers. He has been sleeping a lot and not been interested in eating unless forced to. Confusion is waxing/waning and periodically they can not even get him to put his clothes on. He was seen by Onc and per family had imaging of brain which was negative. He has had no falls, injuries, nor complaints of headache. He has been using his typical amount of narcotics and use of these does not correspond with confusion. He has not been on any antibiotics. He was given Tylenol prior to arrival. Source of History: patient, family Onset: 1.5 week ago Position: other (global) Quality: other (fevers and generalized weakness) Timing: worsening Associated Symptoms: + fevers, + fatigue, + weakness, No headache Note: Associated symptoms include: confusion. Review of Systems See HPI for pertinent positives & negatives. A total of 10 systems reviewed and were otherwise negative. Past Medical/Surgical History Medical Problems: (1) Dyslipidemia (2) GERD (gastroesophageal reflux disease) (3) HTN (hypertension) (4) Lung cancer (5) Lung cancer, upper lobe (6) Non-small cell carcinoma of lung, stage 4 (7) Pneumonia Surgical Problems: (1) History of tonsillectomy and adenoidectomy Family History FH: cardiovascular disease Stroke Social History Smoking Status: Never Smoker Alcohol Use: none Drug Use: none Marital Status: Housing Status: lives with family Occupation Status: retired Current/Historical Medications Scheduled Aspirin (Aspirin Ec), 81 MG PO DAILY Atorvastatin (Lipitor), 40 MG PO DAILY Denosumab (Xgeva), 1 DOSE Q6WK Dexamethasone (Decadron), 2 MG PO DAILY Docusate Sodium (Colace), 100 MG PO BID Ferrous Gluconate (Ferrous Gluconate), 324 MG PO DAILY Lisinopril (Zestril), 5 MG PO DAILY Morphine Sulfate (Morphine Sulfate Er), 30 MG PO Q12 Morphine Sulfate Ir (Morphine Sulfate Ir), 15 MG PO BID Multivitamin (Multivitamin), 1 TAB PO DAILY Omeprazole (Prilosec), 20 MG PO DAILY Pregabalin (Lyrica), 50 MG PO TID [herb laxative], 2 TABS PO BID Scheduled PRN Chlorpheniramine Maleate (Chlor-Trimeton Allergy), 1 TAB PO DAILY PRN for allergies Lorazepam (Ativan), 0.5 MG PO BID PRN for Anxiety Ondansetron Hcl (Zofran), 8 MG PO Q8 PRN for Nausea Oxycodone Hcl (Oxycontin), 1 TAB PO Q4 PRN for Severe Pain Prochlorperazine Maleate (Compazine), 10 MG PO Q6 PRN for Nausea or Vomiting Zolpidem Tartrate (Ambien), 5 MG PO HS PRN for Sleep Physical Exam Vital Signs Date Time Temp Pulse Resp B/P (MAP) Pulse Ox O2 Delivery O2 Flow Rate FiO2 04/11/17 01:18 37.5 88 18 124/67 98 Room Air 04/11/17 00:20 88 19 158/74 98 Room Air 04/11/17 00:01 83 20 131/64 98 Room Air 04/10/17 22:37 92 04/10/17 22:36 95 Room Air 04/10/17 22:34 93 20 131/64 95 Room Air 04/10/17 22:27 37.5 98 18 131/71 94 Room Air Physical Exam GENERAL: Patient is tired appearing and in no acute distress. HEENT: No acute trauma, normocephalic atraumatic, mucous membranes dry, no nasal congestion, no scleral icterus. NECK: No stridor, no adenopathy, no meningismus, trachea is midline. LUNGS: No dyspnea. Clear to auscultation and equal bilaterally. No wheeze, no rhonchi. HEART: Regular rate and rhythm. No murmurs, rubs, gallops appreciated. ABDOMEN: Soft, nontender, bowel sounds positive, no masses appreciated, no peritonitis. BACK: No midline tenderness, no CVA tenderness EXTREMITIES: Normal motion all extremities, no cyanosis, no edema. NEUROLOGIC: Alert and oriented, no acute motor or sensory deficits, no focal weakness, cranial nerves grossly intact. SKIN: Poor skin turgor, no rash, no jaundice, no diaphoresis. Medical Decision & Procedures ER Provider Diagnostic Interpretation: X ray results are stated below per my interpretation: Chest: 1 view: Infiltrate versus atelectasis in left lobe, no effusion, normal cardiac border. Laboratory Results 04/10/17 23:10 Red Blood Count 3.72, Mean Corpuscular Volume 83.1, Mean Corpuscular Hemoglobin 28.0, Mean Corpuscular Hemoglobin Concent 33.7, Mean Platelet Volume 9.8, Neutrophils (%) (Auto) 67.1, Lymphocytes (%) (Auto) 16.7, Monocytes (%) (Auto) 9.3, Eosinophils (%) (Auto) 3.7, Basophils (%) (Auto) 0.9, Neutrophils # (Auto) 1.44, Lymphocytes # (Auto) 0.36, Monocytes # (Auto) 0.20, Eosinophils # (Auto) 0.08, Basophils # (Auto) 0.02 04/10/17 23:10 Test 04/10/17 23:10 04/10/17 23:39 04/10/17 23:50 White Blood Count 2.15 K/uL (4.8-10.8) Red Blood Count 3.72 M/uL (4.7-6.1) Hemoglobin 10.4 g/dL (14.0-18.0) Hematocrit 30.9 % (42-52) Mean Corpuscular Volume 83.1 fL (80-100) Mean Corpuscular Hemoglobin 28.0 pg (25-34) Mean Corpuscular Hemoglobin Concent 33.7 g/dl (32-36) Platelet Count 106 K/uL (130-400) Mean Platelet Volume 9.8 fL (7.4-10.4) Neutrophils (%) (Auto) 67.1 % Lymphocytes (%) (Auto) 16.7 % Monocytes (%) (Auto) 9.3 % Eosinophils (%) (Auto) 3.7 % Basophils (%) (Auto) 0.9 % Neutrophils # (Auto) 1.44 K/uL (1.4-6.5) Lymphocytes # (Auto) 0.36 K/uL (1.2-3.4) Monocytes # (Auto) 0.20 K/uL (0.11-0.59) Eosinophils # (Auto) 0.08 K/uL (0-0.5) Basophils # (Auto) 0.02 K/uL (0-0.2) RDW Standard Deviation 47.7 fL (36.4-46.3) RDW Coefficient of Variation 15.7 % (11.5-14.5) Immature Granulocyte % (Auto) 2.3 % Immature Granulocyte # (Auto) 0.05 K/uL (0.00-0.02) Prothrombin Time 9.4 SECONDS (9.0-12.0) Prothromb Time International Ratio 0.9 (0.9-1.1) Anion Gap 9.0 mmol/L (3-11) Est Creatinine Clear Calc Drug Dose 72.8 ml/min Estimated GFR () 100.3 Estimated GFR (Non- 86.5 BUN/Creatinine Ratio 20.7 (10-20) Calcium Level 8.5 mg/dl (8.5-10.1) Magnesium Level 2.0 mg/dl (1.8-2.4) Total Bilirubin 0.6 mg/dl (0.2-1) Direct Bilirubin 0.2 mg/dl (0-0.2) Aspartate Amino Transf (AST/SGOT) 23 U/L (15-37) Alanine Aminotransferase (ALT/SGPT) 43 U/L (12-78) Alkaline Phosphatase 108 U/L (45-117) Total Creatine Kinase 40 U/L (39-308) Creatine Kinase MB 0.8 ng/ml (0.5-3.6) Creatine Kinase MB Ratio 2.0 (0-3.0) Troponin I < 0.015 ng/ml (0-0.045) Total Protein 6.1 gm/dl (6.4-8.2) Albumin 2.6 gm/dl (3.4-5.0) Influenza Type A Antigen Neg for Influ A (NEG) Influenza Type B Antigen Neg for Influ B (NEG) Urine Color YELLOW Urine Appearance CLEAR (CLEAR) Urine pH 6.5 (4.5-7.5) Urine Specific [place] 1.012 (1.000-1.030) Urine Protein NEG (NEG) Urine Glucose (UA) NEG (NEG) Urine Ketones NEG (NEG) Urine Occult Blood NEG (NEG) Urine Nitrite NEG (NEG) Urine Bilirubin NEG (NEG) Urine Urobilinogen NEG (NEG) Urine Leukocyte Esterase NEG (NEG) Urine WBC (Auto) 0 /hpf (0-5) Urine RBC (Auto) 0-4 /hpf (0-4) Urine Hyaline Casts (Auto) 0 /lpf (0-5) Urine Epithelial Cells (Auto) 0-5 /lpf (0-5) Urine Bacteria (Auto) NEG (NEG) Laboratory results as reviewed by me. Medications Administered Medications (Trade) Dose Ordered Sig/Gal Route Start Time Stop Time Status Last Admin Dose Admin Sodium Chloride 1,000 ml @ 999 mls/hr Q1H1M STAT IV 04/10/17 22:57 04/10/17 23:57 DC 04/10/17 23:10 999 MLS/HR Acetaminophen (Tylenol Tab) 500 mg NOW STAT PO 04/10/17 23:00 04/10/17 23:01 DC 04/10/17 23:10 500 MG Piperacillin Sod/ Tazobactam Sod (Zosyn Iv) 4.5 gm NOW STAT IV 04/10/17 23:58 04/11/17 00:04 DC 04/11/17 00:19 4.5 GM Vancomycin HCl 1500 mg/Sodium Chloride 280 ml @ 125 mls/hr NOW STAT IV 04/10/17 23:58 04/11/17 02:12 DC 04/11/17 00:34 125 MLS/HR Hydromorphone HCl (Dilaudid Inj) 1 mg NOW STAT IV 04/11/17 00:49 04/11/17 00:50 DC 04/11/17 00:57 1 MG ECG Indication: weakness Rate (beats per minute): 85 Rhythm: normal sinus Findings: no acute ischemic change, no ectopy Change: no significant change (03/05/16) Change: Patients electrocardiogram was interpreted by me. ED Course 2241: The patient was evaluated in room C4. A complete history and physical exam was performed. 2434: Discussed the patient's case with Toro Miller. The patient will be evaluated for further treatment and disposition. 2440: I reevaluated the patient, who was resting. I updated him on test findings and discussed the treatment plan. The patient verbalized complete understanding and agreement. Medical Decision Differential: Viral, Pharyngitis, Cellulitis, Pneumonia, Influenza, Meningitis, Sepsis, Bacteremia, UTI/Pyelonephritis, Endocrine, Toxicologic, amongst other pathologies entertained. 77 yr old male with metastatic lung CA who arrives with fever, weakness, and waxing/waning confusion. Work-up with likely LLL infiltrate. Negative UA. Not septic though with recent chemo and mild neutropenia will treat with broad abx. No headache, neuro deficits nor falls thus will hold on CT head at moment. Stable throughout ED stay though family notes that he has not been acting himself. Head Trauma GCS Score: 15 Medication Reconcilliation Current Medication List: was personally reviewed by me Consults Time Called: 0025 Consulting Physician: Toro Miller Returned Call: [phone] Discussed the patient's case. The patient will be evaluated for further treatment and disposition. Impression Primary Impression: Confusion Additional Impression: Pneumonia Departure Information Dispostion Being Evaluated By Hospitalist Referrals Nat Dodge D.O. (PCP) Forms HOME CARE DOCUMENTATION FORM, IMPORTANT VISIT INFORMATION, WORK / SCHOOL INSTRUCTIONS Patient Instructions My [facility] Problem Qualifiers
[2017-04-10] MEDS ORDERED: MORP15TA PO (23:22)
[2017-04-10] MEDS ORDERED: MORP30TA PO (23:22)
[2017-04-10 23:48] LABS: BASO % 0.9 %; BASO ABS # 0.02 K/uL (0-0.2); EOS % 3.7 %; EOS ABS # 0.08 K/uL (0-0.5); HEMATOCRIT 30.9 % (42-52); HEMOGLOBIN 10.4 g/dL (14.0-18.0); IG# 0.05 K/uL (0.00-0.02); LYMPH % 16.7 %; LYMPH ABS # 0.36 K/uL (1.2-3.4); MEAN CELL VOLUME 83.1 fL (80-100); MEAN CORPUSCULAR HGB CONC 33.7 g/dl (32-36); MEAN PLATELET VOLUME 9.8 fL (7.4-10.4); MONO % 9.3 %; NEUT % 67.1 %; NEUT ABS # 1.44 K/uL (1.4-6.5); PLATELET COUNT 106 K/uL (130-400); RED CELL DISTRIBUTION WIDTH CV 15.7 % (11.5-14.5); RED CELL DISTRIBUTION WIDTH SD 47.7 fL (36.4-46.3); WHITE BLOOD COUNT 2.15 K/uL (4.8-10.8)
[2017-04-10 23:58] LABS: INR 0.9 (0.9-1.1)
[2017-04-10] MEDS ORDERED: VANCOMYCIN INJ 1,500 MG in SODIUM CHLORIDE 0.9% 250ML 250 ML IV STA (23:58)
[2017-04-10] MEDS ORDERED: PIPERACILLIN/TAZOBACTAM 4.5 GM/100ML D5W IV STA (23:58)
[2017-04-11] MEDS ORDERED: VANCOMYCIN INJ 1,500 MG in SODIUM CHLORIDE 0.9% 500ML 500 ML IV STA (00:14)
[2017-04-11 00:19] LABS: ALBUMIN 2.6 gm/dl (3.4-5.0); ALT/SGPT 43 U/L (12-78); AST/SGOT 23 U/L (15-37); BLOOD UREA NITROGEN 17 mg/dl (7-18); CALCIUM 8.5 mg/dl (8.5-10.1); CARBON DIOXIDE 30 mmol/L (21-32); CREATININE 0.82 mg/dl (0.60-1.40); GLUCOSE 102 mg/dl (70-99); POTASSIUM 3.9 mmol/L (3.5-5.1); SODIUM 135 mmol/L (136-145)
[2017-04-11 00:24] LABS: ALKALINE PHOSPHATASE 108 U/L (45-117); CKMB 0.8 ng/ml (0.5-3.6); TOTAL PROTEIN 6.1 gm/dl (6.4-8.2)
[2017-04-11 00:24] LABS: INFLUENZA B ANTIGEN Neg for Influ B (NEG)
[2017-04-11] MEDS ORDERED: HYDROmorphone INJ 1 MG/ML SYR IV STA (00:49)
[2017-04-11] MEDS ORDERED: MORP1CAP96 PO (02:26)
[2017-04-11 02:30] VITALS: BP 115/97; PULSE 87; TEMP 36.6; O2SAT 98; Ht 170.2 cm; Wt 66.1 kg
[2017-04-11] MEDS ORDERED: ONDANSETRON INJ 2 MG/ML 2 ML VIAL IV PRN (02:30)
[2017-04-11] MEDS ORDERED: ZOLPIDEM TARTRATE 10 MG TAB PO PRN (02:30)
[2017-04-11] MEDS ORDERED: PROCHLORPERAZINE MALEATE 10 MG TAB PO PRN (02:30)
[2017-04-11] MEDS ORDERED: POLYETHYLENE (MIRALAX) 17 GM PACK PO PRN (02:30)
[2017-04-11] MEDS ORDERED: OXYCODONE HCL IR 5 MG TAB (IMMEDIATE RELEASE) PO PRN (02:30)
[2017-04-11] MEDS ORDERED: ACETAMINOPHEN 325 MG TAB PO PRN (02:30)
[2017-04-11] MEDS ORDERED: LORAZEPAM 0.5 MG TAB PO PRN (02:30)
[2017-04-11] MEDS ORDERED: ONDANSETRON 8 MG TAB PO PRN (02:30)
--- NOTE | 2017-04-11 02:35 | History and Physical ---
History & Physical Date & Time of Service: Apr 11, 2017 at 02:27 Chief Complaint: Confused,Low Grade Fever,Trouble Walking Primary Care Physician: Nat Dodge D.O. History of Present Illness Source: patient, family, spouse, clinic records, hospital records 77 yo M with Stage IV NSCLC with mets to bone who is currently on chemo and just finished XRT presents to the ER for worsening weakness. Per his he finished XRT last week and was having some weakness and difficulty with his balance, but then through the weekend he became more exhausted and fatigued and required alot more help with transferring around. She reports some intermittent low grade fevers and intermittent confusion which is not currently present. The patient denies any chills, nausea, vomiting, diarrhea, abdominal pain or other symptoms. Workup in the ER reveals a possible pneumonia, so he was started on IV antibiotics and given IVF. Past Medical/Surgical History Medical Problems: (1) Dyslipidemia Status: Chronic (2) GERD (gastroesophageal reflux disease) Status: Chronic (3) HTN (hypertension) Status: Chronic (4) Lung cancer Status: Chronic (5) Lung cancer, upper lobe Permanent Comment: Right upper lobe lesion biopsies non-small cell carcinoma Bone metastasis Status post completion of radiation therapy lumbar spine 10/21 2011 received 4500 cGy Metastasis the pelvis with associated pain Status post completion of radiation therapy to bilateral SI joints 12/05/2013 received 4500 cGy Discomfort of the sternum and finding of lesion in the right humerus Status post completion of radiation therapy to the right humerus and sternum received 3000 cGy to each area Pain of the right SI area MRI 03/03/2017 showing epidual mass L4- L5, extending to S3. Progression of disease Status post completion of radiation therapy 03/29/2017. He received 2500 cGy utilizing VMAT. Status: Chronic Surgical Problems: (1) History of tonsillectomy and adenoidectomy Status: Resolved Family History FH: cardiovascular disease Stroke Social History Smoking Status: Never Smoker Smokeless Tobacco Use: No Alcohol Use: none Drug Use: none Marital Status: Housing status: lives with significant other Occupational Status: retired Immunizations History of Influenza Vaccine: Yes Influenza Vaccine Date: Dec 01, 2016 History of Tetanus Vaccine?: No History of Pneumococcal: Yes Pneumococcal Date: Jan 15, 2009 History of Hepatitis B Vaccine: No Multi-Drug Resistant Organisms History of MDRO: No Allergies Coded Allergies: No Known Allergies (Unverified , 04/10/17) Home Medications Scheduled Aspirin (Aspirin Ec), 81 MG PO DAILY Atorvastatin (Lipitor), 40 MG PO DAILY Denosumab (Xgeva), 1 DOSE Q6WK Dexamethasone (Decadron), 2 MG PO DAILY Docusate Sodium (Colace), 100 MG PO BID Ferrous Gluconate (Ferrous Gluconate), 324 MG PO DAILY Lisinopril (Zestril), 5 MG PO DAILY Morphine Sulfate (Morphine Sulfate Er), 30 MG PO Q12 Morphine Sulfate Ir (Morphine Sulfate Ir), 15 MG PO BID Multivitamin (Multivitamin), 1 TAB PO DAILY Omeprazole (Prilosec), 20 MG PO DAILY Pregabalin (Lyrica), 50 MG PO TID [herb laxative], 2 TABS PO BID Scheduled PRN Chlorpheniramine Maleate (Chlor-Trimeton Allergy), 1 TAB PO DAILY PRN for allergies Lorazepam (Ativan), 0.5 MG PO BID PRN for Anxiety Ondansetron Hcl (Zofran), 8 MG PO Q8 PRN for Nausea Oxycodone Hcl (Oxycontin), 1 TAB PO Q4 PRN for Severe Pain Prochlorperazine Maleate (Compazine), 10 MG PO Q6 PRN for Nausea or Vomiting Zolpidem Tartrate (Ambien), 5 MG PO HS PRN for Sleep Review of Systems At least ten systems were reviewed and negative except as indicated in HPi. Physical Exam Vital Signs Date Time Temp Pulse Resp B/P (MAP) Pulse Ox O2 Delivery O2 Flow Rate FiO2 04/11/17 01:18 37.5 88 18 124/67 98 Room Air 04/11/17 00:20 88 19 158/74 98 Room Air 04/11/17 00:01 83 20 131/64 98 Room Air 04/10/17 22:37 92 04/10/17 22:36 95 Room Air 04/10/17 22:34 93 20 131/64 95 Room Air 04/10/17 22:27 37.5 98 18 131/71 94 Room Air General Appearance: WD/WN, no apparent distress Head: normocephalic, atraumatic Eyes: normal inspection, PERRL, sclerae normal ENT: hearing grossly normal, pharynx normal Neck: supple, no adenopathy, trachea midline Respiratory/Chest: lungs clear, normal breath sounds, no respiratory distress, no accessory muscle use Cardiovascular: regular rate, rhythm, no edema, no gallop, no JVD, no murmur, normal peripheral pulses Abdomen/GI: normal bowel sounds, non tender, soft, no organomegaly Extremities/Musculoskelatal: normal inspection, no pedal edema Neurologic/Psych: no motor/sensory deficits (did not assess gait), alert, normal mood/affect, normal reflexes, oriented x 3 Skin: normal color, warm/dry Diagnostics Laboratory Results 04/10/17 23:10 Red Blood Count 3.72, Mean Corpuscular Volume 83.1, Mean Corpuscular Hemoglobin 28.0, Mean Corpuscular Hemoglobin Concent 33.7, Mean Platelet Volume 9.8, Neutrophils (%) (Auto) 67.1, Lymphocytes (%) (Auto) 16.7, Monocytes (%) (Auto) 9.3, Eosinophils (%) (Auto) 3.7, Basophils (%) (Auto) 0.9, Neutrophils # (Auto) 1.44, Lymphocytes # (Auto) 0.36, Monocytes # (Auto) 0.20, Eosinophils # (Auto) 0.08, Basophils # (Auto) 0.02 04/10/17 23:10 Test 04/10/17 23:10 04/10/17 23:39 04/10/17 23:50 White Blood Count 2.15 K/uL (4.8-10.8) Red Blood Count 3.72 M/uL (4.7-6.1) Hemoglobin 10.4 g/dL (14.0-18.0) Hematocrit 30.9 % (42-52) Mean Corpuscular Volume 83.1 fL (80-100) Mean Corpuscular Hemoglobin 28.0 pg (25-34) Mean Corpuscular Hemoglobin Concent 33.7 g/dl (32-36) Platelet Count 106 K/uL (130-400) Mean Platelet Volume 9.8 fL (7.4-10.4) Neutrophils (%) (Auto) 67.1 % Lymphocytes (%) (Auto) 16.7 % Monocytes (%) (Auto) 9.3 % Eosinophils (%) (Auto) 3.7 % Basophils (%) (Auto) 0.9 % Neutrophils # (Auto) 1.44 K/uL (1.4-6.5) Lymphocytes # (Auto) 0.36 K/uL (1.2-3.4) Monocytes # (Auto) 0.20 K/uL (0.11-0.59) Eosinophils # (Auto) 0.08 K/uL (0-0.5) Basophils # (Auto) 0.02 K/uL (0-0.2) RDW Standard Deviation 47.7 fL (36.4-46.3) RDW Coefficient of Variation 15.7 % (11.5-14.5) Immature Granulocyte % (Auto) 2.3 % Immature Granulocyte # (Auto) 0.05 K/uL (0.00-0.02) Prothrombin Time 9.4 SECONDS (9.0-12.0) Prothromb Time International Ratio 0.9 (0.9-1.1) Anion Gap 9.0 mmol/L (3-11) Est Creatinine Clear Calc Drug Dose 72.8 ml/min Estimated GFR () 100.3 Estimated GFR (Non- 86.5 BUN/Creatinine Ratio 20.7 (10-20) Calcium Level 8.5 mg/dl (8.5-10.1) Magnesium Level 2.0 mg/dl (1.8-2.4) Total Bilirubin 0.6 mg/dl (0.2-1) Direct Bilirubin 0.2 mg/dl (0-0.2) Aspartate Amino Transf (AST/SGOT) 23 U/L (15-37) Alanine Aminotransferase (ALT/SGPT) 43 U/L (12-78) Alkaline Phosphatase 108 U/L (45-117) Total Creatine Kinase 40 U/L (39-308) Creatine Kinase MB 0.8 ng/ml (0.5-3.6) Creatine Kinase MB Ratio 2.0 (0-3.0) Troponin I < 0.015 ng/ml (0-0.045) Total Protein 6.1 gm/dl (6.4-8.2) Albumin 2.6 gm/dl (3.4-5.0) Influenza Type A Antigen Neg for Influ A (NEG) Influenza Type B Antigen Neg for Influ B (NEG) Urine Color YELLOW Urine Appearance CLEAR (CLEAR) Urine pH 6.5 (4.5-7.5) Urine Specific [place] 1.012 (1.000-1.030) Urine Protein NEG (NEG) Urine Glucose (UA) NEG (NEG) Urine Ketones NEG (NEG) Urine Occult Blood NEG (NEG) Urine Nitrite NEG (NEG) Urine Bilirubin NEG (NEG) Urine Urobilinogen NEG (NEG) Urine Leukocyte Esterase NEG (NEG) Urine WBC (Auto) 0 /hpf (0-5) Urine RBC (Auto) 0-4 /hpf (0-4) Urine Hyaline Casts (Auto) 0 /lpf (0-5) Urine Epithelial Cells (Auto) 0-5 /lpf (0-5) Urine Bacteria (Auto) NEG (NEG) Date/Time Source Procedure Growth Status 04/10/17 23:25 Blood Blood Culture Pending Received Results Past 24 Hours Test 04/10/17 23:10 04/10/17 23:39 04/10/17 23:50 Range/Units White Blood Count 2.15 4.8-10.8 K/uL Red Blood Count 3.72 4.7-6.1 M/uL Hemoglobin 10.4 14.0-18.0 g/dL Hematocrit 30.9 42-52 % Mean Corpuscular Volume 83.1 80-100 fL Mean Corpuscular Hemoglobin 28.0 25-34 pg Mean Corpuscular Hemoglobin Concent 33.7 32-36 g/dl Platelet Count 106 130-400 K/uL Mean Platelet Volume 9.8 7.4-10.4 fL Neutrophils (%) (Auto) 67.1 % Lymphocytes (%) (Auto) 16.7 % Monocytes (%) (Auto) 9.3 % Eosinophils (%) (Auto) 3.7 % Basophils (%) (Auto) 0.9 % Neutrophils # (Auto) 1.44 1.4-6.5 K/uL Lymphocytes # (Auto) 0.36 1.2-3.4 K/uL Monocytes # (Auto) 0.20 0.11-0.59 K/uL Eosinophils # (Auto) 0.08 0-0.5 K/uL Basophils # (Auto) 0.02 0-0.2 K/uL RDW Standard Deviation 47.7 36.4-46.3 fL RDW Coefficient of Variation 15.7 11.5-14.5 % Immature Granulocyte % (Auto) 2.3 % Immature Granulocyte # (Auto) 0.05 0.00-0.02 K/uL Prothrombin Time 9.4 9.0-12.0 SECONDS Prothromb Time International Ratio 0.9 0.9-1.1 Sodium Level 135 136-145 mmol/L Potassium Level 3.9 3.5-5.1 mmol/L Chloride Level 96 98-107 mmol/L Carbon Dioxide Level 30 21-32 mmol/L Anion Gap 9.0 3-11 mmol/L Blood Urea Nitrogen 17 7-18 mg/dl Creatinine 0.82 0.60-1.40 mg/dl Est Creatinine Clear Calc Drug Dose 72.8 ml/min Estimated GFR () 100.3 Estimated GFR (Non- 86.5 BUN/Creatinine Ratio 20.7 10-20 Random Glucose 102 70-99 mg/dl Calcium Level 8.5 8.5-10.1 mg/dl Magnesium Level 2.0 1.8-2.4 mg/dl Total Bilirubin 0.6 0.2-1 mg/dl Direct Bilirubin 0.2 0-0.2 mg/dl Aspartate Amino Transf (AST/SGOT) 23 15-37 U/L Alanine Aminotransferase (ALT/SGPT) 43 12-78 U/L Alkaline Phosphatase 108 45-117 U/L Total Creatine Kinase 40 39-308 U/L Creatine Kinase MB 0.8 0.5-3.6 ng/ml Creatine Kinase MB Ratio 2.0 0-3.0 Troponin I < 0.015 0-0.045 ng/ml Total Protein 6.1 6.4-8.2 gm/dl Albumin 2.6 3.4-5.0 gm/dl Influenza Type A Antigen Neg for Influ A NEG Influenza Type B Antigen Neg for Influ B NEG Urine Color YELLOW Urine Appearance CLEAR CLEAR Urine pH 6.5 4.5-7.5 Urine Specific [place] 1.012 1.000-1.030 Urine Protein NEG NEG Urine Glucose (UA) NEG NEG Urine Ketones NEG NEG Urine Occult Blood NEG NEG Urine Nitrite NEG NEG Urine Bilirubin NEG NEG Urine Urobilinogen NEG NEG Urine Leukocyte Esterase NEG NEG Urine WBC (Auto) 0 0-5 /hpf Urine RBC (Auto) 0-4 0-4 /hpf Urine Hyaline Casts (Auto) 0 0-5 /lpf Urine Epithelial Cells (Auto) 0-5 0-5 /lpf Urine Bacteria (Auto) NEG NEG Microbiology Results 04/10/17 Blood Culture, Received Pending 04/10/17 Blood Culture, Received Pending Diagnostic Radiology CHEST ONE VIEW PORTABLE CLINICAL HISTORY: 77 years-old Male presenting with fever. TECHNIQUE: Portable upright AP view of the chest was obtained. COMPARISON: 01/10/2017. FINDINGS: Atherosclerosis of the aortic arch. Cardiac silhouette normal in size. Prominence of the left hilum likely vascular. Minimal hazy perihilar opacities. Trace nodular opacities may be present at the right lung base, which may be chronic. No other focal infiltrate. No large effusion or pneumothorax. Degenerative changes of the thoracic spine. Upper abdomen normal. IMPRESSION: 1. Trace nodular opacities at the right lung base may be chronic. Minimal hazy perihilar opacities could suggest reactive airways disease, mild volume overload, or viral bronchiolitis. No focal infiltrate to suggest pneumonia Impression Assessment and Plan 77 yoM with metastatic lung cancer presents with intermittent fevers at home and increased weakness after finishing chemo and XRT last week. 1. Pneumonia-per ER physician, poss infiltrate on CXR. Vanc/Zosyn given initially pending final read. Blood and sputum cultures are pending. Flu PCR pending. No supplemental oxygen needed. 2. NSCLC Stage IV with bony mets. Continues on decadron until Tuesday after XRT last week. Reports from family on intermittent confusion at home-poss 2/2 steroids. No confusion on admission. 3. Neuropathy-in feet. Worsening on this recent chemo. B12/folate. 4. Ambulatory dysfunction and weakness-PT/OT, 25 OH 5. Generalized weakness-multifocal etiology 2/2/ all of the above. PT/OT 6. Pancytopenia 2/2 chemo DVT proph-contraindicated in thrombocytopenia Full Code per my discussion with his , his son and him. Dispo-to floor. Edwige Wakefield, DO [facility] Prophylaxis VTE Risk Assessment Done? Y/N: Yes Risk Level: Moderate Given or contraindicated: Contraindicated
[2017-04-11] MEDS ORDERED: VANCOMYCIN CONSULT ACTIVE PRN ×2 (02:49)
[2017-04-11] MEDS: SODIUM CHLORIDE 0.9% 1000ML 1,000 ML IV SCH ×2 (03:00→14:05)
[2017-04-11] MEDS ORDERED: PIPERACILL/TAZOBAC CONSULT ACTIVE PRN (03:00)
[2017-04-11] MEDS ORDERED: PIPERACILL/TAZOBAC IV 3.375 GM in DEXTROSE 5% 100ML IV SCH (06:00)
[2017-04-11 07:10] VITALS: BP 148/71; PULSE 98; TEMP 36.9; O2SAT 98
[2017-04-11 07:16] LABS: BASO % 0.5 %; BASO ABS # 0.01 K/uL (0-0.2); EOS % 3.6 %; EOS ABS # 0.07 K/uL (0-0.5); HEMATOCRIT 29.6 % (42-52); HEMOGLOBIN 9.8 g/dL (14.0-18.0); IG# 0.09 K/uL (0.00-0.02); LYMPH % 14.4 %; LYMPH ABS # 0.28 K/uL (1.2-3.4); MEAN CELL VOLUME 83.4 fL (80-100); MEAN CORPUSCULAR HEMOGLOBIN 27.6 pg (25-34); MEAN CORPUSCULAR HGB CONC 33.1 g/dl (32-36); MONO % 9.3 %; MONO ABS # 0.18 K/uL (0.11-0.59); NEUT % 67.6 %; NEUT ABS # 1.31 K/uL (1.4-6.5); PLATELET COUNT 102 K/uL (130-400); RED CELL DISTRIBUTION WIDTH CV 15.5 % (11.5-14.5); RED CELL DISTRIBUTION WIDTH SD 47.6 fL (36.4-46.3); WHITE BLOOD COUNT 1.94 K/uL (4.8-10.8)
--- NOTE | 2017-04-11 07:21 | DIAGNOSTIC IMAGING REPORT ---
CHEST ONE VIEW PORTABLE CLINICAL HISTORY: 77 years-old Male presenting with fever. TECHNIQUE: Portable upright AP view of the chest was obtained. COMPARISON: 01/10/2017. FINDINGS: Atherosclerosis of the aortic arch. Cardiac silhouette normal in size. Prominence of the left hilum likely vascular. Minimal hazy perihilar opacities. Trace nodular opacities may be present at the right lung base, which may be chronic. No other focal infiltrate. No large effusion or pneumothorax. Degenerative changes of the thoracic spine. Upper abdomen normal. IMPRESSION: 1. Trace nodular opacities at the right lung base may be chronic. Minimal hazy perihilar opacities could suggest reactive airways disease, mild volume overload, or viral bronchiolitis. No focal infiltrate to suggest pneumonia. Electronically signed by: Tay Michelle M.D. 04/11/2017 7:20 AM Dictated Date/Time: 04/11/2017 7:16 AM
[2017-04-11] MEDS: OXYCODONE HCL IR 5 MG TAB (IMMEDIATE RELEASE) PO PRN (07:25)
[2017-04-11 07:45] LABS: CREATININE 0.86 mg/dl (0.60-1.40); POTASSIUM 3.8 mmol/L (3.5-5.1)
[2017-04-11 08:00] VITALS: O2SAT 98
[2017-04-11] MEDS ORDERED: MoRPHine SULFATE IR 15 MG TAB (IMMEDIATE RELEASE) PO SCH (08:00)
--- NOTE | 2017-04-11 08:59 | Pharmacy Progress Note ---
Pharmacy Abx Initial Consult Date of Service Apr 11, 2017. Pharmacy Dosing Scope Date of Consult: 04/11/17 Consultation requested by: Dr. Wakefield [facility] is consulted to initiate vancomycin/Zosyn IV dosing therapy, order appropriate labs and adjust drug dose/frequency. Subjective The patient is a 77 year old male admitted on Apr 11, 2017 at 01:43. Objective Height (Feet): 5 Height (Inches): 7.00 Weight (Kilograms): 69.000 Vital Signs (Past 12Hrs) Vital Signs Past 12 Hours Date Time Temp Pulse Resp B/P (MAP) Pulse Ox O2 Delivery O2 Flow Rate FiO2 04/11/17 07:10 36.9 98 17 148/71 (96) 98 Room Air 04/11/17 02:30 36.6 87 18 115/97 98 Room Air 04/11/17 02:22 37.5 88 18 120/65 98 04/11/17 01:18 37.5 88 18 124/67 98 Room Air 04/11/17 00:20 88 19 158/74 98 Room Air 04/11/17 00:01 83 20 131/64 98 Room Air 04/10/17 22:37 92 04/10/17 22:36 95 Room Air 04/10/17 22:34 93 20 131/64 95 Room Air 04/10/17 22:27 37.5 98 18 131/71 94 Room Air Lab Results (24Hrs) Laboratory Tests (24 Hours) Test 04/10/17 23:10 04/11/17 06:38 04/11/17 08:53 Total Creatine Kinase 40 U/L (39-308) White Blood Count 1.94 K/uL (4.8-10.8) L Red Blood Count 3.55 M/uL (4.7-6.1) L Hemoglobin 9.8 g/dL (14.0-18.0) L Hematocrit 29.6 % (42-52) L Mean Corpuscular Volume 83.4 fL (80-100) Mean Corpuscular Hemoglobin 27.6 pg (25-34) Mean Corpuscular Hemoglobin Concent 33.1 g/dl (32-36) Platelet Count 102 K/uL (130-400) L Mean Platelet Volume 10.0 fL (7.4-10.4) Neutrophils (%) (Auto) 67.6 % Lymphocytes (%) (Auto) 14.4 % Monocytes (%) (Auto) 9.3 % Eosinophils (%) (Auto) 3.6 % Basophils (%) (Auto) 0.5 % Neutrophils # (Auto) 1.31 K/uL (1.4-6.5) L Lymphocytes # (Auto) 0.28 K/uL (1.2-3.4) L Monocytes # (Auto) 0.18 K/uL (0.11-0.59) Eosinophils # (Auto) 0.07 K/uL (0-0.5) Basophils # (Auto) 0.01 K/uL (0-0.2) Micro Results Date/Time Source Procedure Growth Status 04/10/17 23:25 Blood Blood Culture Pending Received 04/10/17 23:10 Blood Blood Culture Pending Received Risk Factors for Resistance * Immunocompromised (chemotherapy, radiation) Assessment & Plan Assessment 77 year old male with a PMH of stage IV NSCLC currently receiving chemotherapy and radiation admitted with possible PNA. Plan vancomycin/Zosyn for treatment of HAP Vancomycin IV * Loading dose: 1500 mg (21.7 mg/kg) * Maintenance dose: 1000 mg IV (15 mg/kg) every 12 hours (give several hours early as insufficient load sent. population pharmacokinetics suggest a half- life of 11 hours) * Goal trough level for pneumonia : 15 to 20 mcg/mL * Trough ordered for 04/13/17 prior to 0800 dose * Ordered MRSA nasal swap and procalcitonin Piperacillin/tazobactam * 4.5 g bolus administered over 30 minutes, then 3.375 g IV extended infusion every 8 hours for CrCl greater than 20 mL/min Pharmacy will continue to follow and will adjust dose/frequency as necessary. Thank you.
[2017-04-11] MEDS ORDERED: MoRPHine SULFATE CR 15 MG TAB (MS CONTIN) PO SCH (09:00)
[2017-04-11] MEDS: ATORVASTATIN 20 MG TAB PO SCH (09:05)
[2017-04-11] MEDS: MULTIVITAMIN TAB PO SCH (09:06)
[2017-04-11] MEDS: DEXAMETHASONE 1 MG TAB PO SCH (09:06)
[2017-04-11] MEDS: MoRPHine SULFATE CR 15 MG TAB (MS CONTIN) PO SCH ×2 (09:07→20:08)
[2017-04-11] MEDS: PREGABALIN 50 MG CAP PO SCH ×3 (09:07→20:07)
[2017-04-11] MEDS: ASPIRIN 81 MG ECTAB PO SCH (09:08)
[2017-04-11] MEDS: PANTOprazole SOD 40 MG TAB PO SCH (09:08)
[2017-04-11] MEDS: FERROUS GLUCONATE 324 MG TAB PO SCH (09:09)
[2017-04-11] MEDS: LISINOPRIL 5 MG TAB PO SCH (09:09)
[2017-04-11] MEDS: DOCUSATE SODIUM 100 MG CAP PO SCH ×2 (09:09→20:07)
[2017-04-11 09:44] LABS: CREATININE 0.82 mg/dl (0.60-1.40)
[2017-04-11] MEDS ORDERED: MORP1TAB11 PO (10:58)
[2017-04-11] MEDS ORDERED: OXYC-164 PO (10:58)
[2017-04-11 16:00] VITALS: BP 106/61; PULSE 88; TEMP 36.8; O2SAT 95
--- NOTE | 2017-04-11 17:49 | Medical Consult ---
Consultation Date of Consultation: Apr 11, 2017. Attending Physician: Enoc Khan M.D. History of Present Illness ONCOLOGY HEMATOLOGY CONSULT: Evaluation and management stage IV non-small cell lung cancer, presently receiving systemic chemotherapy (Navelbine) Date of consult: 04/11/2017: Consult requested by Dr. Khan. HPI: 77-year-old male, a case of non-small cell lung cancer, primary site involving right infrahilar region, multiple bony metastatic disease noted at that time the diagnosis, malignant right pleural effusion, received 6 different prior treatments (gemcitabine/Carboplatin, Tarceva, paclitaxel/Carboplatin, Alimta, Afatinib, Nivolumab). Current treatment: - Navelbine started on 1328 (weekly x 2 followed by 1 week off, received 2 cycles so far). Last cycle received on 03/30/2017. - Xgeva for multiple bones. He also completed second-round of radiation treatment to the sacral lesion recently. He does complain of lower back pain at the sacral region, he is on MS Contin 40 mg every 12 hourly and oxycodone for the breakthrough pain. Also receiving tapering dose of Decadron, nowadays he is on Decadron at 2 mg per day, he will complete that in the next few days. He is also on Lyrica twice-a-day. Earlier he could not tolerate fentanyl patch. He was also seen by pain management of clinic in the recent past. Now he's admitted at [facility] on 04/11/2017 morning for some low-grade fevers, intermittent confusional status, some trouble walking while he had a confusional status. I saw him at bedside, his and son where also at bedside, he did not have any significant confusion status when I saw him around 5 PM, he did receive IV hydration, also receiving antibiotic treatment for possible pneumonia, no fever since morning, he is not on any oxygen therapy, no increasing cough, lower back pain present, he says that sometimes it's gets uncomfortable, no nausea, no vomiting, no bleeding from any sites, no focal neurological symptoms. REVIEW OF SYSTEMS: GENERAL: some weight loss noted, he says that he's feeling slightly weak and tired but no focal weakness, no fever, sweats or chills. SKIN: No skin rash, no bruising. HEAD: No new headache, no dizziness. EYES: No recent change in the vision, no diplopia, EARS: No earache ,no tinnitus, NOSE: No epistaxis, No nasal discharge or stuffiness, MOUTH: No sores, no dysphagia, no hoarseness of voice, NECK: No lumps, No swelling in thyroid area. No stiffness. PULMONARY: No cough, No shortness of breath at rest., no hemoptysis, no chest pain, No wheezing. CARDIOVASCULAR: No anginal chest pain, no PND, no orthopnea. No palpitation, mild left leg distal edema but no local pain. No syncope. GASTRIINTESTINAL: No abdominal pain, no nausea or vomiting. No diarrhea, No constipation. No blood in stool or black tarry stools. No abdominal distention. UROLOGIC: No burning urination. No hematuria. MUSCULOSKELETAL lower back pain at the tailbone region HEMATOLOGIC: No anemia, no bleeding disorder, No bruising. No history of blood transfusion. NEUROLOGIC: No seizures, no focal weakness, no speech difficulty, No memory disturbances. No tingling or numbness of the extremities. PSYCHRIATRIC: No depression. No anxiety. No psychosis. PAST MEDICAL/SURGICAL HISTORY: - Hyperlipidemia, GERD, hypertension. SOCIAL HISTORY: non-smoker, denies any EtOH abuse. FAMILY HISTORY: Not significant. MEDICATIONS: please review his chart for detailed review of medications. He received Zosyn and vancomycin. ALLERGY: none. PHYSICAL EXAMINATION: - Alert and oriented x3, well built man, not in any distress. - HEENT: no icterus, no pallor, Throat: Normal. - Neck: No palpable cervical lymphadenopathy. - Chest: clear to auscultation. - Abdomen: soft, nontender, no hepatomegaly, no splenomegaly. - No focal neuro deficit. - Extremities: no finger clubbing, no leg edema. LABS: - WBC 2100, H&H of 10.4/31, Platelet count of 106,000. ANC 1400 (04/10/2017) - WBC 1900, H&H of 9.8/30, Platelet count of 102 K, ANC 1300 (04/11/2017) - BUN/creatinine: 13/0.8, calcium 8.0 - Normal liver function test - Vitamin B12 1896, vitamin D level --> 32 procalcitonin 0.14- Normal PT - Influenza --> Negative. - Urinalysis --> Negative. IMAGING: chest x-ray done on 04/10/2017 error nodular opacity in the right lung base which appears to be chronic,perihilar opacities noted. No focal infiltrate noted. ASSESSMENT AND PLAN: 77-year-old male, a case of non-small cell lung cancer, presented with widespread bony metastatic disease in 2009, had received 6 different types of systemic treatment, also received radiation treatment to the lung mass and to the right sacral mass in the past, recently received additional radiation treatment to the sacral lesion, presently he is receiving systemic chemotherapy Navelbine, received 2 cycles of chemotherapy, had malignant pleural effusion, S/ P pleurodesis, now does not any significant symptoms related that, his main problem is lower back pain related sacral lesion, he is on MS Contin 45 mg every 12 hourly and oxycodone for the breakthrough pain. Lately he is not doing quite well, has some intermittent confusional status and now once again he has similar symptoms, appears to be metabolic in nature, could be because of opioid therapy, dehydration, which gets better within few hours. Today when I saw him in the hospital, does not have any significant confusion status, he looks much better, in fact he could stand by himself. No focal neurological symptoms. Presently he is receiving empirical antibiotic for possible pneumonia. Slightly low ANC and platelet count noted which is expected with the recent chemotherapy treatment. He is on tapering dose of oral Decadron at 2 mg per day, he will finish this by end of this week. Because of increasing lower back pain he needs opioid therapy and so I would not change pain medications at this time. Advised him that he should avoid dehydration. Will also continue lytic at the same dose (twice-a-day). I would like to hold chemotherapy treatment for now, give him some time off from the treatment for about 4 weeks and will see how he does. Thanks for the consultation. Rick Machado MD Hem/Onc Past Medical/Surgical History Medical Problems: (1) Bacteremia Status: Acute (2) Confusion Status: Acute (3) Infected venous access port Status: Acute (4) Lung cancer Status: Chronic Family History FH: cardiovascular disease Stroke Social History Smoking Status: Never Smoker Smokeless Tobacco Use: No Alcohol Use: none Drug Use: none Marital Status: Housing Status: lives with family Occupation Status: retired Allergies Coded Allergies: No Known Allergies (Unverified , 04/10/17) Current Inpatient Medications Current Inpatient Medications Medications (Trade) Dose Ordered Sig/Gal Route Start Time Stop Time Status Last Admin Dose Admin Sodium Chloride 1,000 ml @ 100 mls/hr Q10H IV 04/11/17 03:00 04/11/17 22:59 04/11/17 14:05 100 MLS/HR Acetaminophen (Tylenol Tab) 650 mg Q4H PRN PO 04/11/17 02:30 05/11/17 02:29 Polyethylene (Miralax Powder Packet) 17 gm DAILY PRN PO 04/11/17 02:30 05/11/17 02:29 Ondansetron HCl (Zofran Inj) 4 mg Q6H PRN IV 04/11/17 02:30 05/11/17 02:29 Aspirin (Ecotrin Tab) 81 mg DAILY PO 04/11/17 08:00 05/11/17 08:59 04/11/17 09:08 81 MG Atorvastatin Calcium (Lipitor Tab) 40 mg DAILY PO 04/11/17 08:00 05/11/17 08:59 04/11/17 09:05 40 MG Docusate Sodium (coLACE CAP) 100 mg BID PO 04/11/17 08:00 05/11/17 08:59 04/11/17 09:09 100 MG Ferrous Gluconate (Ferrous Gluconate Tab) 324 mg DAILY PO 04/11/17 08:00 05/11/17 08:59 04/11/17 09:09 324 MG Lisinopril (Zestril Tab) 5 mg DAILY PO 04/11/17 08:00 05/11/17 08:59 04/11/17 09:09 5 MG Lorazepam (Ativan Tab) 0.5 mg BID PRN PO 04/11/17 02:30 05/11/17 02:29 Multivitamins (Multivitamin Tab) 1 tab DAILY PO 04/11/17 08:00 05/11/17 08:59 04/11/17 09:06 1 TAB Ondansetron HCl (Zofran Tab) 8 mg Q8 PRN PO 04/11/17 02:30 05/11/17 02:29 Pregabalin (Lyrica Cap) 50 mg TID PO 04/11/17 08:00 05/11/17 08:59 04/11/17 14:05 50 MG Zolpidem Tartrate (Ambien Tab) 5 mg HS PRN PO 04/11/17 02:30 05/11/17 02:29 Dexamethasone (Decadron Tab) 2 mg DAILY PO 04/11/17 08:00 04/16/17 08:59 04/11/17 09:06 2 MG Pantoprazole Sodium (Protonix Tab) 40 mg QAM PO 04/11/17 08:00 05/11/17 08:59 04/11/17 09:08 40 MG Oxycodone HCl (Roxicodone Immediate Rel Tab) 10 mg Q4 PRN PO 04/11/17 04:30 04/25/17 04:29 04/11/17 07:25 10 MG Morphine Sulfate (Oramorph Sr Tab) 45 mg Q12 PO 04/11/17 09:00 04/25/17 08:59 04/11/17 09:07 45 MG Miscellaneous Information (Order Awaiting Action) 1 ea QS N/A 04/11/17 11:26 05/11/17 11:25 Physical Exam Date Time Temp Pulse Resp B/P (MAP) Pulse Ox O2 Delivery O2 Flow Rate FiO2 04/11/17 16:00 36.8 88 18 106/61 (76) 95 Room Air 04/11/17 08:00 98 Room Air 04/11/17 07:10 36.9 98 17 148/71 (96) 98 Room Air 04/11/17 02:30 36.6 87 18 115/97 98 Room Air 04/11/17 02:22 37.5 88 18 120/65 98 04/11/17 01:18 37.5 88 18 124/67 98 Room Air 04/11/17 00:20 88 19 158/74 98 Room Air 04/11/17 00:01 83 20 131/64 98 Room Air 04/10/17 22:37 92 04/10/17 22:36 95 Room Air 04/10/17 22:34 93 20 131/64 95 Room Air 04/10/17 22:27 37.5 98 18 131/71 94 Room Air Laboratory Results Last 24 Hours Test 04/10/17 23:10 04/10/17 23:39 04/10/17 23:50 04/11/17 06:38 White Blood Count 2.15 K/uL 1.94 K/uL Red Blood Count 3.72 M/uL 3.55 M/uL Hemoglobin 10.4 g/dL 9.8 g/dL Hematocrit 30.9 % 29.6 % Mean Corpuscular Volume 83.1 fL 83.4 fL Mean Corpuscular Hemoglobin 28.0 pg 27.6 pg Mean Corpuscular Hemoglobin Concent 33.7 g/dl 33.1 g/dl Platelet Count 106 K/uL 102 K/uL Mean Platelet Volume 9.8 fL 10.0 fL Neutrophils (%) (Auto) 67.1 % 67.6 % Lymphocytes (%) (Auto) 16.7 % 14.4 % Monocytes (%) (Auto) 9.3 % 9.3 % Eosinophils (%) (Auto) 3.7 % 3.6 % Basophils (%) (Auto) 0.9 % 0.5 % Neutrophils # (Auto) 1.44 K/uL 1.31 K/uL Lymphocytes # (Auto) 0.36 K/uL 0.28 K/uL Monocytes # (Auto) 0.20 K/uL 0.18 K/uL Eosinophils # (Auto) 0.08 K/uL 0.07 K/uL Basophils # (Auto) 0.02 K/uL 0.01 K/uL RDW Standard Deviation 47.7 fL 47.6 fL RDW Coefficient of Variation 15.7 % 15.5 % Immature Granulocyte % (Auto) 2.3 % 4.6 % Immature Granulocyte # (Auto) 0.05 K/uL 0.09 K/uL Prothrombin Time 9.4 SECONDS Prothromb Time International Ratio 0.9 Sodium Level 135 mmol/L 138 mmol/L Potassium Level 3.9 mmol/L 3.8 mmol/L Chloride Level 96 mmol/L 102 mmol/L Carbon Dioxide Level 30 mmol/L 32 mmol/L Anion Gap 9.0 mmol/L 4.0 mmol/L Blood Urea Nitrogen 17 mg/dl 13 mg/dl Creatinine 0.82 mg/dl 0.86 mg/dl Est Creatinine Clear Calc Drug Dose 72.8 ml/min 69.4 ml/min Estimated GFR () 100.3 98.3 Estimated GFR (Non- 86.5 84.8 BUN/Creatinine Ratio 20.7 15.4 Random Glucose 102 mg/dl 102 mg/dl Calcium Level 8.5 mg/dl 8.0 mg/dl Magnesium Level 2.0 mg/dl Total Bilirubin 0.6 mg/dl Direct Bilirubin 0.2 mg/dl Aspartate Amino Transf (AST/SGOT) 23 U/L Alanine Aminotransferase (ALT/SGPT) 43 U/L Alkaline Phosphatase 108 U/L Total Creatine Kinase 40 U/L Creatine Kinase MB 0.8 ng/ml Creatine Kinase MB Ratio 2.0 Troponin I < 0.015 ng/ml Total Protein 6.1 gm/dl Albumin 2.6 gm/dl Influenza Type A Antigen Neg for Influ A Influenza Type B Antigen Neg for Influ B Urine Color YELLOW Urine Appearance CLEAR Urine pH 6.5 Urine Specific [place] 1.012 Urine Protein NEG Urine Glucose (UA) NEG Urine Ketones NEG Urine Occult Blood NEG Urine Nitrite NEG Urine Bilirubin NEG Urine Urobilinogen NEG Urine Leukocyte Esterase NEG Urine WBC (Auto) 0 /hpf Urine RBC (Auto) 0-4 /hpf Urine Hyaline Casts (Auto) 0 /lpf Urine Epithelial Cells (Auto) 0-5 /lpf Urine Bacteria (Auto) NEG Vitamin B12 Level 1896 pg/mL 25-Hydroxy Vitamin D Total 32.3 ng/ml Test 04/11/17 09:08 Creatinine 0.82 mg/dl Est Creatinine Clear Calc Drug Dose 72.8 ml/min Estimated GFR () 100.3 Estimated GFR (Non- 86.5 Procalcitonin 0.14 ng/ml
--- NOTE | 2017-04-11 19:34 | Progress Note ---
Medicine Progress Note Date & Time of Visit: Apr 11, 2017 at 10:20 . Subjective CC: Follow-up visit for metastatic lung cancer. HPI: Persistent bilateral lower extremity pain. Oxycontin for breakthrough pain offers some temporary relief. Compounded cream from Pain Management helps a little. Intermittent confusion. ROS: General- no fever, no chills Resp- no cough; no shortness of breath Cardiac- no chest pain, no edema GI- no nausea, no vomiting, no diarrhea - no dysuria, no difficulty voiding . Objective Last 8 Hrs Date Time Temp Pulse Resp B/P (MAP) Pulse Ox O2 Delivery O2 Flow Rate FiO2 04/11/17 19:18 Room Air 04/11/17 16:00 36.8 88 18 106/61 (76) 95 Room Air Physical Exam: General- lying in bed; no acute distress Lungs- clear to auscultation; no respiratory distress Cardiovascular- RRR; no gallop; no JVD; no pretibial edema Abdomen- + bowel sounds, soft, nontender Back- no spinal tenderness Extremities- no cyanosis; no calf tenderness Neuro- alert, somewhat confused, oriented x 3; lower extremities - mild weakness proximally Skin- warm & dry . Laboratory Results: Last 24 Hours Test 04/10/17 23:10 04/10/17 23:39 04/10/17 23:50 04/11/17 06:38 White Blood Count 2.15 K/uL 1.94 K/uL Red Blood Count 3.72 M/uL 3.55 M/uL Hemoglobin 10.4 g/dL 9.8 g/dL Hematocrit 30.9 % 29.6 % Mean Corpuscular Volume 83.1 fL 83.4 fL Mean Corpuscular Hemoglobin 28.0 pg 27.6 pg Mean Corpuscular Hemoglobin Concent 33.7 g/dl 33.1 g/dl Platelet Count 106 K/uL 102 K/uL Mean Platelet Volume 9.8 fL 10.0 fL Neutrophils (%) (Auto) 67.1 % 67.6 % Lymphocytes (%) (Auto) 16.7 % 14.4 % Monocytes (%) (Auto) 9.3 % 9.3 % Eosinophils (%) (Auto) 3.7 % 3.6 % Basophils (%) (Auto) 0.9 % 0.5 % Neutrophils # (Auto) 1.44 K/uL 1.31 K/uL Lymphocytes # (Auto) 0.36 K/uL 0.28 K/uL Monocytes # (Auto) 0.20 K/uL 0.18 K/uL Eosinophils # (Auto) 0.08 K/uL 0.07 K/uL Basophils # (Auto) 0.02 K/uL 0.01 K/uL RDW Standard Deviation 47.7 fL 47.6 fL RDW Coefficient of Variation 15.7 % 15.5 % Immature Granulocyte % (Auto) 2.3 % 4.6 % Immature Granulocyte # (Auto) 0.05 K/uL 0.09 K/uL Prothrombin Time 9.4 SECONDS Prothromb Time International Ratio 0.9 Sodium Level 135 mmol/L 138 mmol/L Potassium Level 3.9 mmol/L 3.8 mmol/L Chloride Level 96 mmol/L 102 mmol/L Carbon Dioxide Level 30 mmol/L 32 mmol/L Anion Gap 9.0 mmol/L 4.0 mmol/L Blood Urea Nitrogen 17 mg/dl 13 mg/dl Creatinine 0.82 mg/dl 0.86 mg/dl Est Creatinine Clear Calc Drug Dose 72.8 ml/min 69.4 ml/min Estimated GFR () 100.3 98.3 Estimated GFR (Non- 86.5 84.8 BUN/Creatinine Ratio 20.7 15.4 Random Glucose 102 mg/dl 102 mg/dl Calcium Level 8.5 mg/dl 8.0 mg/dl Magnesium Level 2.0 mg/dl Total Bilirubin 0.6 mg/dl Direct Bilirubin 0.2 mg/dl Aspartate Amino Transf (AST/SGOT) 23 U/L Alanine Aminotransferase (ALT/SGPT) 43 U/L Alkaline Phosphatase 108 U/L Total Creatine Kinase 40 U/L Creatine Kinase MB 0.8 ng/ml Creatine Kinase MB Ratio 2.0 Troponin I < 0.015 ng/ml Total Protein 6.1 gm/dl Albumin 2.6 gm/dl Influenza Type A Antigen Neg for Influ A Influenza Type B Antigen Neg for Influ B Urine Color YELLOW Urine Appearance CLEAR Urine pH 6.5 Urine Specific [place] 1.012 Urine Protein NEG Urine Glucose (UA) NEG Urine Ketones NEG Urine Occult Blood NEG Urine Nitrite NEG Urine Bilirubin NEG Urine Urobilinogen NEG Urine Leukocyte Esterase NEG Urine WBC (Auto) 0 /hpf Urine RBC (Auto) 0-4 /hpf Urine Hyaline Casts (Auto) 0 /lpf Urine Epithelial Cells (Auto) 0-5 /lpf Urine Bacteria (Auto) NEG Vitamin B12 Level 1896 pg/mL 25-Hydroxy Vitamin D Total 32.3 ng/ml Test 04/11/17 09:08 Creatinine 0.82 mg/dl Est Creatinine Clear Calc Drug Dose 72.8 ml/min Estimated GFR () 100.3 Estimated GFR (Non- 86.5 Procalcitonin 0.14 ng/ml Date/Time Source Procedure Growth Status 04/10/17 23:25 Blood Blood Culture Pending Received 04/10/17 23:10 Blood Blood Culture Pending Received 04/11/17 17:06 Nasal MRSA DNA Surveillance Screen - Final Specimen Negative for MRSA by DNA Probe Complete Assessment & Plan UNCONTROLLED CANCER PAIN Uncontrolled lower extremity pain due to lumbosacral mets. Last MRI of LS spine was Mar 03. Finished course of radiation therapy. Continue morphine extended release 45 mg BID. Continue oxycodone 10 mg for breakthrough pain. Continue compounded topical cream (meloxicam, gabapentin, lidocaine, prilocaine) . Consult Pain Management. CONFUSION MRI brain Mar 03 did not reveal any mets. Calcium normal. Confusion probably due to analgesics. Follow. METASTATIC LUNG CA Management per Hematology / Oncology. HYPERTENSION Continue lisinopril. GERD Continue PPI. AMBULATORY DYSFUNCTION PT / OT. ? PNEUMONIA [place] to have possible infiltrate LLL at time of ED evaluation. No fever. No cough. Procalcitonin normal. Chest x-ray reviewed by undersigned and formally interpreted by Radiology. No apparent infiltrates. DC antibiotics. Re-evaluate as necessary. VTE PROPHYLAXIS No chemoprophylaxis due to thrombocytopenia. SCD's. Ambulate as able. DISPOSITION To be determined. Family Medicine follow-up with Dr. Nat Dodge. Hematology / Oncology follow-up with Dr. Rick Machado. . Current Inpatient Medications: Current Inpatient Medications Medications (Trade) Dose Ordered Sig/Gal Route Start Time Stop Time Status Last Admin Dose Admin Sodium Chloride 1,000 ml @ 100 mls/hr Q10H IV 04/11/17 03:00 04/11/17 22:59 04/11/17 14:05 100 MLS/HR Acetaminophen (Tylenol Tab) 650 mg Q4H PRN PO 04/11/17 02:30 05/11/17 02:29 Polyethylene (Miralax Powder Packet) 17 gm DAILY PRN PO 04/11/17 02:30 05/11/17 02:29 Ondansetron HCl (Zofran Inj) 4 mg Q6H PRN IV 04/11/17 02:30 05/11/17 02:29 Aspirin (Ecotrin Tab) 81 mg DAILY PO 04/11/17 08:00 05/11/17 08:59 04/11/17 09:08 81 MG Atorvastatin Calcium (Lipitor Tab) 40 mg DAILY PO 04/11/17 08:00 05/11/17 08:59 04/11/17 09:05 40 MG Docusate Sodium (coLACE CAP) 100 mg BID PO 04/11/17 08:00 05/11/17 08:59 04/11/17 09:09 100 MG Ferrous Gluconate (Ferrous Gluconate Tab) 324 mg DAILY PO 04/11/17 08:00 05/11/17 08:59 04/11/17 09:09 324 MG Lisinopril (Zestril Tab) 5 mg DAILY PO 04/11/17 08:00 05/11/17 08:59 04/11/17 09:09 5 MG Lorazepam (Ativan Tab) 0.5 mg BID PRN PO 04/11/17 02:30 05/11/17 02:29 Multivitamins (Multivitamin Tab) 1 tab DAILY PO 04/11/17 08:00 05/11/17 08:59 04/11/17 09:06 1 TAB Ondansetron HCl (Zofran Tab) 8 mg Q8 PRN PO 04/11/17 02:30 05/11/17 02:29 Pregabalin (Lyrica Cap) 50 mg TID PO 04/11/17 08:00 05/11/17 08:59 04/11/17 14:05 50 MG Zolpidem Tartrate (Ambien Tab) 5 mg HS PRN PO 04/11/17 02:30 05/11/17 02:29 Dexamethasone (Decadron Tab) 2 mg DAILY PO 04/11/17 08:00 04/16/17 08:59 04/11/17 09:06 2 MG Pantoprazole Sodium (Protonix Tab) 40 mg QAM PO 04/11/17 08:00 05/11/17 08:59 2/12/18 09:08 40 MG Oxycodone HCl (Roxicodone Immediate Rel Tab) 10 mg Q4 PRN PO 04/11/17 04:30 04/25/17 04:29 04/11/17 07:25 10 MG Morphine Sulfate (Oramorph Sr Tab) 45 mg Q12 PO 04/11/17 09:00 04/25/17 08:59 04/11/17 09:07 45 MG Miscellaneous Information (Order Awaiting Action) 1 ea QS N/A 04/11/17 11:26 05/11/17 11:25
[2017-04-11] MEDS ORDERED: VANCOMYCIN INJ 1,000 MG in SODIUM CHLORIDE 0.9% 250ML 250 ML IV SCH (20:00)
[2017-04-11 23:30] VITALS: BP 132/58; PULSE 98; TEMP 36.9; O2SAT 98
[2017-04-12 03:30] VITALS: BP 143/76; PULSE 97; TEMP 37.4; O2SAT 97
[2017-04-12 06:40] LABS: HEMOGLOBIN 9.8 g/dL (14.0-18.0); MEAN CELL VOLUME 82.6 fL (80-100); MEAN CORPUSCULAR HEMOGLOBIN 27.9 pg (25-34); MEAN CORPUSCULAR HGB CONC 33.8 g/dl (32-36); RED CELL DISTRIBUTION WIDTH CV 15.7 % (11.5-14.5); RED CELL DISTRIBUTION WIDTH SD 47.2 fL (36.4-46.3); WHITE BLOOD COUNT 2.02 K/uL (4.8-10.8)
[2017-04-12 07:10] LABS: CREATININE 0.74 mg/dl (0.60-1.40)
[2017-04-12 07:11] LABS: BASO % 0.5 %; BASO ABS # 0.01 K/uL (0-0.2); EOS ABS # 0.06 K/uL (0-0.5); IG# 0.07 K/uL (0.00-0.02); LYMPH % 15.8 %; LYMPH ABS # 0.32 K/uL (1.2-3.4); MEAN PLATELET VOLUME 9.2 fL (7.4-10.4); MONO % 8.4 %; MONO ABS # 0.17 K/uL (0.11-0.59); NEUT % 68.8 %; NEUT ABS # 1.39 K/uL (1.4-6.5); PLATELET COUNT 95 K/uL (130-400)
[2017-04-12 07:24] VITALS: BP 147/80; PULSE 100; TEMP 37; O2SAT 97
[2017-04-12] MEDS: DOCUSATE SODIUM 100 MG CAP PO SCH ×2 (09:37→20:19)
[2017-04-12] MEDS: PANTOprazole SOD 40 MG TAB PO SCH (09:39)
[2017-04-12] MEDS: ATORVASTATIN 20 MG TAB PO SCH (09:40)
[2017-04-12] MEDS: FERROUS GLUCONATE 324 MG TAB PO SCH (09:40)
[2017-04-12] MEDS: PREGABALIN 50 MG CAP PO SCH ×3 (09:40→20:19)
[2017-04-12] MEDS: ASPIRIN 81 MG ECTAB PO SCH (09:40)
[2017-04-12] MEDS: DEXAMETHASONE 1 MG TAB PO SCH (09:41)
[2017-04-12] MEDS: LISINOPRIL 5 MG TAB PO SCH (09:41)
[2017-04-12] MEDS: MULTIVITAMIN TAB PO SCH (09:41)
[2017-04-12] MEDS: MoRPHine SULFATE CR 15 MG TAB (MS CONTIN) PO SCH ×2 (09:42→20:19)
[2017-04-12] MEDS: OXYCODONE HCL IR 5 MG TAB (IMMEDIATE RELEASE) PO PRN (09:50)
[2017-04-12] MEDS: DULOXETINE (CYMBALTA) 30 MG CAP PO SCH (10:44)
--- NOTE | 2017-04-12 11:58 | Pain Management Consultation ---
Pain Management Consultation Date of Consultation Apr 12, 2017. Reason for Consultation Lumbar radiculopathy Pain Location 1 - 2 - 3 - History This is a 77 yo white male with stage IV NSCLC with bony metastasis. Patient does have a metastatic in the lumbosacral epidural space. He does have chronic lumbosacral tenderness and neuropathic pain in the bilateral lower extremities to the level of the feet. He describes a deep aching and burning pain. He reports mild weakness of the legs. Patient is currently on MS Contin 45 mg BID , Oxycodone 10mg x 4 hrs, and Lyrica 50mg BID. Patient was not aware that he had to ask for the Oxycodone. He has received the MS Contin as it is a scheduled medication. states that he was previously on Lyrica 50mg TID but caused mood changes so it was decreased back down to 50mg BID. He has been tolerating the Lyrica 50mg BID without any side effects and it has been previously discussed to increase back up to TID. He rates his pain a 9/10 currently. He does report chronic urinary incontinence and states it is worse in the hospital because he is not allowed to ambulate by himself and he cannot hold urine very long; he does wear depends chronically. Patient denies any foot drop, bowel incontinence, falls. Case discussed with Dr. Mariana Valentine Past Medical/Surgical History (1) Non-small cell carcinoma of lung, stage 4 (2) Confusion (3) HTN (hypertension) (4) GERD (gastroesophageal reflux disease) (5) History of tonsillectomy and adenoidectomy (6) Dyslipidemia Family History FH: cardiovascular disease Stroke Social / Work History Smokeless Tobacco Use: No Alcohol Use: none Marital Status: Housing Status: lives with family Occupation: retired Allergies Coded Allergies: No Known Allergies (Unverified , 04/10/17) Medications Current Inpatient Medications Medications (Trade) Dose Ordered Sig/Gal Route Start Time Stop Time Status Last Admin Dose Admin Acetaminophen (Tylenol Tab) 650 mg Q4H PRN PO 04/11/17 02:30 05/11/17 02:29 Polyethylene (Miralax Powder Packet) 17 gm DAILY PRN PO 04/11/17 02:30 05/11/17 02:29 Ondansetron HCl (Zofran Inj) 4 mg Q6H PRN IV 04/11/17 02:30 3/14/18 02:29 Aspirin (Ecotrin Tab) 81 mg DAILY PO 04/11/17 08:00 05/11/17 08:59 04/12/17 09:40 81 MG Atorvastatin Calcium (Lipitor Tab) 40 mg DAILY PO 04/11/17 08:00 05/11/17 08:59 04/12/17 09:40 40 MG Docusate Sodium (coLACE CAP) 100 mg BID PO 04/11/17 08:00 05/11/17 08:59 04/11/17 20:07 100 MG Ferrous Gluconate (Ferrous Gluconate Tab) 324 mg DAILY PO 04/11/17 08:00 05/11/17 08:59 04/12/17 09:40 324 MG Lisinopril (Zestril Tab) 5 mg DAILY PO 04/11/17 08:00 05/11/17 08:59 04/12/17 09:41 5 MG Lorazepam (Ativan Tab) 0.5 mg BID PRN PO 04/11/17 02:30 05/11/17 02:29 04/12/17 10:44 0.5 MG Multivitamins (Multivitamin Tab) 1 tab DAILY PO 04/11/17 08:00 05/11/17 08:59 04/12/17 09:41 1 TAB Ondansetron HCl (Zofran Tab) 8 mg Q8 PRN PO 04/11/17 02:30 05/11/17 02:29 Pregabalin (Lyrica Cap) 50 mg TID PO 04/11/17 08:00 05/11/17 08:59 04/12/17 09:40 50 MG Zolpidem Tartrate (Ambien Tab) 5 mg HS PRN PO 04/11/17 02:30 05/11/17 02:29 Dexamethasone (Decadron Tab) 2 mg DAILY PO 04/11/17 08:00 04/16/17 08:59 04/12/17 09:41 2 MG Pantoprazole Sodium (Protonix Tab) 40 mg QAM PO 04/11/17 08:00 05/11/17 08:59 04/12/17 09:39 40 MG Morphine Sulfate (Oramorph Sr Tab) 45 mg Q12 PO 04/11/17 09:00 2/26/18 08:59 04/12/17 09:42 45 MG Miscellaneous Information (Order Awaiting Action) 1 ea QS N/A 04/11/17 11:26 05/11/17 11:25 Oxycodone/ Acetaminophen (Percocet 10-325MG Tab) 1 tab Q4H PRN PO 04/12/17 10:00 04/26/17 09:59 Duloxetine HCl (Cymbalta Cap) 30 mg QAM PO 04/12/17 10:00 05/12/17 09:59 04/12/17 10:44 30 MG Review of Systems Denies any constitutional, cardiac, pulmonary, neurological, GI, , extremity, endocrine, neuro, ENT, dermatological, or musculoskeletal complaints other than stated in HPI Physical Exam Height & Weight: Height 5 feet, 7.00 inches. Weight 68.000 (Kilograms) 149 (Pounds) Last Vital Signs Documentation Date Time Temp Pulse Resp B/P (MAP) Pulse Ox O2 Delivery O2 Flow Rate FiO2 04/12/17 07:38 Room Air 04/12/17 07:24 37.0 100 20 147/80 (102) 97 Exam: GENERAL: Mr. Barrera is a 77 y/o white male that appears his stated age. Speech is intact. Mood and affect is appropriate. He is a poor historian. His provided most of history and information. BACK: Mild diffuse lumbosacral tenderness. There is no paraspinal, quadratus lumborum, piriformis, or gluteal tenderness or spasm. LOWER EXTREMITIES: Positive straight leg raise bilaterally at 30 degrees. R Hip flexion +4; hip extension +4; knee extension +4; knee flexion +5; dorsiflexion +5; plantar flexion +5 L Hip flexion +4; hip extension +4; knee extension +4; knee flexion +5; dorsiflexion +5; plantar flexion +5 NEURO: Awake, alert, and oriented x 3. There is decreased sensation of the lower extremities throughout. Patellar Reflex L +1 R +1 Achilles Reflex L +1 R +1 Laboratory Laboratory Results (Last CBC): 04/12/17 06:22 Red Blood Count 3.51 L, Mean Corpuscular Volume 82.6, Mean Corpuscular Hemoglobin 27.9, Mean Corpuscular Hemoglobin Concent 33.8, Mean Platelet Volume 9.2, Neutrophils (%) (Auto) 68.8, Lymphocytes (%) (Auto) 15.8, Monocytes (%) ( Auto) 8.4, Eosinophils (%) (Auto) 3.0, Basophils (%) (Auto) 0.5, Neutrophils # ( Auto) 1.39 L, Lymphocytes # (Auto) 0.32 L, Monocytes # (Auto) 0.17, Eosinophils # (Auto) 0.06, Basophils # (Auto) 0.01 Imaging MRI: enhanced MRI Findings LUMBAR MRI IMPRESSION: 1. Extensive enhancing epidural soft tissue which begins at the L4-5 level, and extends to the S3 level. At the L5-S1 level through the visualized sacral levels, the spinal canal is completely filled with enhancing soft tissue consistent with epidural metastatic disease. 2. Multifocal areas of marrow replacement involving the T11, T12, L4, sacrum, and iliac bones, consistent with metastatic disease 3. There has been extensive interval progression of disease when compared the prior MRI of the pelvis performed in June 2016 Electronically signed by: Ollie Montoya M.D. 03/03/2017 4:26 PM Dictated Date/Time: 03/03/2017 4:14 PM Assessment 1. Extensive metastasis in the epidural space form L4-S3 2. NSCLC stage IV with bony metasis 3. Lumbar radiculopathy 4. Neuropathic pain of lower extremities. Recommendations 1. Will change Oxycodone to Percocet 10/325mg for increased relief. 2. Continue MS Contin 45mg BID. 3. Initiate Cymbalta 30mg daily for extra pain relief. 4. Continue Lyrica at 50mg TID. 5. Patient and are well aware of epidural metastasis and what to possibly expect such as progressive leg weakness, paralysis, foot drop, bowel incontinence.
[2017-04-12] MEDS: OXYCODONE/ACETAMINOPHEN 10/325MG TAB PO PRN ×2 (14:07→19:18)
[2017-04-12 15:16] VITALS: BP 115/63; PULSE 100; TEMP 36.8; O2SAT 97
--- NOTE | 2017-04-12 19:31 | Progress Note ---
Medicine Progress Note Date & Time of Visit: Apr 12, 2017 at 19:17. Subjective Pt was seen and examined Lying in bed with no distress with at bed side Pt said that he does not have any pain now He said that the pain med seems to to work said that his mental status has been normal He denies any chest pain, palpitation, dizziness Objective Last 8 Hrs Date Time Temp Pulse Resp B/P (MAP) Pulse Ox O2 Delivery O2 Flow Rate FiO2 04/12/17 16:20 Room Air 04/12/17 15:16 36.8 100 20 115/63 (80) 97 Room Air Physical Exam: General- No acute distress Head- atraumatic Eyes- PERRL, EOMI ENT- oropharynx clear Neck- supple, no JVD Lungs- clear to auscultation Heart- regular rhythm Abdomen- normal bowel sounds, soft Extremities- no calf tenderness Neuro- alert, oriented x 3; PERRL Skin- warm & dry Laboratory Results: Last 24 Hours Test 04/12/17 06:22 White Blood Count 2.02 K/uL Red Blood Count 3.51 M/uL Hemoglobin 9.8 g/dL Hematocrit 29.0 % Mean Corpuscular Volume 82.6 fL Mean Corpuscular Hemoglobin 27.9 pg Mean Corpuscular Hemoglobin Concent 33.8 g/dl Platelet Count 95 K/uL Mean Platelet Volume 9.2 fL Neutrophils (%) (Auto) 68.8 % Lymphocytes (%) (Auto) 15.8 % Monocytes (%) (Auto) 8.4 % Eosinophils (%) (Auto) 3.0 % Basophils (%) (Auto) 0.5 % Neutrophils # (Auto) 1.39 K/uL Lymphocytes # (Auto) 0.32 K/uL Monocytes # (Auto) 0.17 K/uL Eosinophils # (Auto) 0.06 K/uL Basophils # (Auto) 0.01 K/uL RDW Standard Deviation 47.2 fL RDW Coefficient of Variation 15.7 % Immature Granulocyte % (Auto) 3.5 % Immature Granulocyte # (Auto) 0.07 K/uL Platelet Estimate DECREASED Giant Platelets 1+ Creatinine 0.74 mg/dl Est Creatinine Clear Calc Drug Dose 80.7 ml/min Estimated GFR () 104.6 Estimated GFR (Non- 90.2 Assessment & Plan METASTASIS BONE PAIN MRI on 03/03/17 showed Extensive enhancing epidural soft tissue which begins at the L4-5 level, and extends to the S3 level. At the L5-S1 level through the visualized sacral levels, the spinal canal is completely filled with enhancing soft tissue consistent with epidural metastatic disease. Pain management on board Continue morphine extended release 45 mg BID, percocet 10mg/325 mg Starting on Cymbalta 30mg daily for extra pain relief and continue Lyrica at 50mg TID. Follow up with pain management as an outpatient CONFUSION MRI brain Mar 03 did not reveal any mets. Confusion probably due to analgesics. Resolved METASTATIC LUNG CA Has been managed by Hematology / Oncology Dr. Machado HYPERTENSION Continue lisinopril. GERD Continue PPI. AMBULATORY DYSFUNCTION PT / OT. Fall precaution ? PNEUMONIA No fever. No cough. Procalcitonin normal. Offiacial radiology CXR report showed no infiltrates. Abx was discontinued Stable VTE PROPHYLAXIS No chemoprophylaxis due to thrombocytopenia. SCD's. Ambulate as able. DISPOSITION Possible discharge tomorow if pain contol Current Inpatient Medications: Current Inpatient Medications Medications (Trade) Dose Ordered Sig/Gal Route Start Time Stop Time Status Last Admin Dose Admin Acetaminophen (Tylenol Tab) 650 mg Q4H PRN PO 04/11/17 02:30 05/11/17 02:29 Polyethylene (Miralax Powder Packet) 17 gm DAILY PRN PO 04/11/17 02:30 05/11/17 02:29 Ondansetron HCl (Zofran Inj) 4 mg Q6H PRN IV 04/11/17 02:30 05/11/17 02:29 Aspirin (Ecotrin Tab) 81 mg DAILY PO 04/11/17 08:00 05/11/17 08:59 04/12/17 09:40 81 MG Atorvastatin Calcium (Lipitor Tab) 40 mg DAILY PO 04/11/17 08:00 05/11/17 08:59 04/12/17 09:40 40 MG Docusate Sodium (coLACE CAP) 100 mg BID PO 04/11/17 08:00 05/11/17 08:59 04/11/17 20:07 100 MG Ferrous Gluconate (Ferrous Gluconate Tab) 324 mg DAILY PO 04/11/17 08:00 05/11/17 08:59 04/12/17 09:40 324 MG Lisinopril (Zestril Tab) 5 mg DAILY PO 04/11/17 08:00 05/11/17 08:59 04/12/17 09:41 5 MG Lorazepam (Ativan Tab) 0.5 mg BID PRN PO 04/11/17 02:30 05/11/17 02:29 04/12/17 10:44 0.5 MG Multivitamins (Multivitamin Tab) 1 tab DAILY PO 04/11/17 08:00 05/11/17 08:59 04/12/17 09:41 1 TAB Ondansetron HCl (Zofran Tab) 8 mg Q8 PRN PO 04/11/17 02:30 05/11/17 02:29 Pregabalin (Lyrica Cap) 50 mg TID PO 04/11/17 08:00 05/11/17 08:59 04/12/17 14:07 50 MG Zolpidem Tartrate (Ambien Tab) 5 mg HS PRN PO 04/11/17 02:30 05/11/17 02:29 Dexamethasone (Decadron Tab) 2 mg DAILY PO 04/11/17 08:00 04/16/17 08:59 04/12/17 09:41 2 MG Pantoprazole Sodium (Protonix Tab) 40 mg QAM PO 04/11/17 08:00 05/11/17 08:59 04/12/17 09:39 40 MG Morphine Sulfate (Oramorph Sr Tab) 45 mg Q12 PO 04/11/17 09:00 04/25/17 08:59 04/12/17 09:42 45 MG Miscellaneous Information (Order Awaiting Action) 1 ea QS N/A 04/11/17 11:26 05/11/17 11:25 Oxycodone/ Acetaminophen (Percocet 10-325MG Tab) 1 tab Q4H PRN PO 04/12/17 10:00 04/26/17 09:59 04/12/17 14:07 1 TAB Duloxetine HCl (Cymbalta Cap) 30 mg QAM PO 04/12/17 10:00 05/12/17 09:59 04/12/17 10:44 30 MG
[2017-04-12 23:56] VITALS: BP 137/65; PULSE 103; TEMP 36.9; O2SAT 97
[2017-04-13] MEDS: OXYCODONE/ACETAMINOPHEN 10/325MG TAB PO PRN ×2 (03:12→09:44)
[2017-04-13 07:18] VITALS: BP 115/63; PULSE 94; TEMP 37; O2SAT 96
[2017-04-13] MEDS ORDERED: VANCOMYCIN TROUGH ONE (07:30)
[2017-04-13 07:40] LABS: CREATININE 0.79 mg/dl (0.60-1.40)
[2017-04-13 08:13] VITALS: BP 130/74; PULSE 101
[2017-04-13] MEDS: MoRPHine SULFATE CR 15 MG TAB (MS CONTIN) PO SCH (08:14)
[2017-04-13] MEDS: PREGABALIN 50 MG CAP PO SCH ×2 (08:14→13:25)
[2017-04-13] MEDS: DULOXETINE (CYMBALTA) 30 MG CAP PO SCH (08:17)
[2017-04-13] MEDS: LISINOPRIL 5 MG TAB PO SCH (08:17)
[2017-04-13] MEDS: FERROUS GLUCONATE 324 MG TAB PO SCH (08:17)
[2017-04-13] MEDS: ATORVASTATIN 20 MG TAB PO SCH (08:19)
[2017-04-13] MEDS: MULTIVITAMIN TAB PO SCH (08:20)
[2017-04-13] MEDS: PANTOprazole SOD 40 MG TAB PO SCH (08:20)
[2017-04-13] MEDS: DEXAMETHASONE 1 MG TAB PO SCH (08:20)
[2017-04-13] MEDS: ASPIRIN 81 MG ECTAB PO SCH (08:21)
[2017-04-13] MEDS: DOCUSATE SODIUM 100 MG CAP PO SCH (08:21)
--- NOTE | 2017-04-13 10:51 | Clinical Documentation Query ---
QUERY 1 OF [address] CHAUDHARY, In your clinical opinion is this patient being managed for: ( ) Toxic encephalopathy likely due to analgesics ( ) Not Agree ( ) Other explanation of clinical findings (Please Explain) ( ) Unable to determine (Please Define) ( ) Need to Discuss The medical record reflects the following clinical findings, treatment, and risk factors. Clinical Indicators:77 yo male presenting with weakness, confusion which seems to wax and wane per documentation. Pt taking po morphine and lyrica for management of metastatic bone pain. Treatment:IV fluid bolus, pain management consult, add cymbalta Risk Factors: analgesic management of cancer pain QUERY 2 OF 2 In your clinical opinion is this patient being managed for: ( ) pancytopenia due to chemotherapy ( ) Not Agree ( ) Other explanation of clinical findings (Please Explain) ( ) Unable to determine (Please Define) ( ) Need to Discuss The diagnosis of pancytopenia due to chemotherapy is noted in the H/P and has since been removed from the documentation. To avoid livestock trader uncertainty, please continue to document this diagnosis in the progress notes and discharge summary Please clarify and document your clinical opinion in the progress notes and discharge summary. Terms such as "probable", "suspected", "likely", "questionable", "possible", or "still to be ruled out" are acceptable. IF IN AGREEMENT, YOU MUST DOCUMENT ABOVE DIAGNOSTIC STATEMENT IN DAILY PROGRESS NOTES AND DISCHARGE SUMMARY. This document is not part of the patient's record. Thank You, Mona Davis, RN [phone]
[2017-04-13 12:16] VITALS: BP 130/74; PULSE 101; TEMP 37; O2SAT 96
--- NOTE | 2017-04-13 14:36 | Progress Note ---
Medicine Progress Note Date & Time of Visit: Apr 13, 2017 at 14:32. Subjective Pt was seen and examined Lying in bed with no distress Pt said that the pain meds help Denies any chest pain, palpitation, SOB and hallucination Objective Last 8 Hrs Date Time Temp Pulse Resp B/P (MAP) Pulse Ox O2 Delivery O2 Flow Rate FiO2 04/13/17 12:16 37.0 101 16 96 Room Air 04/13/17 08:13 101 130/74 (92) 04/13/17 08:00 Room Air 04/13/17 07:18 37.0 94 16 115/63 (80) 96 Physical Exam: General- No acute distress Head- atraumatic Eyes- PERRL, EOMI ENT- oropharynx clear Neck- supple, no JVD Lungs- clear to auscultation Heart- regular rhythm Abdomen- normal bowel sounds, soft Extremities- no calf tenderness Neuro- alert, oriented x 3; PERRL Skin- warm & dry Laboratory Results: Last 24 Hours Test 04/13/17 07:00 Creatinine 0.79 mg/dl Est Creatinine Clear Calc Drug Dose 75.5 ml/min Estimated GFR () 101.8 Estimated GFR (Non- 87.8 Assessment & Plan METASTASIS BONE PAIN MRI on 03/03/17 showed Extensive enhancing epidural soft tissue which begins at the L4-5 level, and extends to the S3 level. At the L5-S1 level through the visualized sacral levels, the spinal canal is completely filled with enhancing soft tissue consistent with epidural metastatic disease. Pain management on board Continue morphine extended release 45 mg BID, percocet 10mg/325 mg Continue Cymbalta 30mg daily for extra pain relief and continue Lyrica at 50mg TID. Follow up with pain management as an outpatient CONFUSION MRI brain Mar 03 did not reveal any mets. Confusion probably due to analgesics. Resolved METASTATIC LUNG CA Has been managed by Hematology / Oncology Dr. Machado HYPERTENSION Continue lisinopril. GERD Continue PPI. AMBULATORY DYSFUNCTION PT / OT. Fall precaution ? PNEUMONIA No fever. No cough. Procalcitonin normal. Offiacial radiology CXR report showed no infiltrates. Abx was discontinued Stable VTE PROPHYLAXIS No chemoprophylaxis due to thrombocytopenia. SCD's. Ambulate as able. DISPOSITION Follow up with Dr. Dodge on 04/20 @ 10:55 am Follow up with Oncology Dr. Machado Follow with pain management as needed. Consultants: Pain management Oncology Current Inpatient Medications: Current Inpatient Medications Medications (Trade) Dose Ordered Sig/Gal Route Start Time Stop Time Status Last Admin Dose Admin Acetaminophen (Tylenol Tab) 650 mg Q4H PRN PO 04/11/17 02:30 05/11/17 02:29 Polyethylene (Miralax Powder Packet) 17 gm DAILY PRN PO 04/11/17 02:30 05/11/17 02:29 Ondansetron HCl (Zofran Inj) 4 mg Q6H PRN IV 04/11/17 02:30 05/11/17 02:29 Aspirin (Ecotrin Tab) 81 mg DAILY PO 04/11/17 08:00 05/11/17 08:59 04/13/17 08:21 81 MG Atorvastatin Calcium (Lipitor Tab) 40 mg DAILY PO 04/11/17 08:00 05/11/17 08:59 04/13/17 08:19 40 MG Docusate Sodium (coLACE CAP) 100 mg BID PO 04/11/17 08:00 05/11/17 08:59 04/13/17 08:21 100 MG Ferrous Gluconate (Ferrous Gluconate Tab) 324 mg DAILY PO 04/11/17 08:00 05/11/17 08:59 04/13/17 08:17 324 MG Lisinopril (Zestril Tab) 5 mg DAILY PO 04/11/17 08:00 05/11/17 08:59 04/13/17 08:17 5 MG Lorazepam (Ativan Tab) 0.5 mg BID PRN PO 04/11/17 02:30 05/11/17 02:29 04/12/17 10:44 0.5 MG Multivitamins (Multivitamin Tab) 1 tab DAILY PO 04/11/17 08:00 05/11/17 08:59 04/13/17 08:20 1 TAB Ondansetron HCl (Zofran Tab) 8 mg Q8 PRN PO 04/11/17 02:30 05/11/17 02:29 Pregabalin (Lyrica Cap) 50 mg TID PO 04/11/17 08:00 05/11/17 08:59 04/13/17 13:25 50 MG Zolpidem Tartrate (Ambien Tab) 5 mg HS PRN PO 04/11/17 02:30 05/11/17 02:29 Dexamethasone (Decadron Tab) 2 mg DAILY PO 04/11/17 08:00 04/16/17 08:59 04/13/17 08:20 2 MG Pantoprazole Sodium (Protonix Tab) 40 mg QAM PO 04/11/17 08:00 05/11/17 08:59 04/13/17 08:20 40 MG Morphine Sulfate (Oramorph Sr Tab) 45 mg Q12 PO 04/11/17 09:00 04/25/17 08:59 04/13/17 08:14 45 MG Miscellaneous Information (Order Awaiting Action) 1 ea QS N/A 04/11/17 11:26 05/11/17 11:25 Oxycodone/ Acetaminophen (Percocet 10-325MG Tab) 1 tab Q4H PRN PO 04/12/17 10:00 04/26/17 09:59 04/13/17 09:44 1 TAB Duloxetine HCl (Cymbalta Cap) 30 mg QAM PO 04/12/17 10:00 05/12/17 09:59 04/13/17 08:17 30 MG
[2017-04-13] MEDS ORDERED: CYM30 PO (14:44)
[2017-04-13] MEDS ORDERED: OXYC-88 PO (14:44)
--- NOTE | 2017-04-13 14:50 | Discharge Instructions ---
Discharge Instructions Date of Service Apr 13, 2017. Admission Reason for Admission: Bone pain Discharge Discharge Diagnosis / Problem: METASTASIS BONE PAIN Discharge Goals Goal(s): Decrease discomfort, Improve function, Improve disease control Activity Recommendations Activity Limitations: resume your previous activity (as tolerated) . Instructions / Follow-Up Instructions / Follow-Up Follow up with your primary care provider Dr. Dodge on 04/20 @ 10:55 Follow up with oncology Dr. Machado ( please call to schedule for the appointment) Follow up with pain management as needed Continue physical therapy Fall precaution Hold next dose of narcotic if you become drowsy and lethargy Do not drive or operate any machine after taking the narcotic pain medications Current Hospital Diet Patient's current hospital diet: AHA Diet (Heart Healthy) Discharge Diet Recommended Diet: AHA Diet (Heart Healthy) Pending Studies Studies pending at discharge: no Medical Emergencies . Who to Call and When: Medical Emergencies: If at any time you feel your situation is an emergency, please call 911 immediately. . Non-Emergent Contact Non-Emergency issues call your: Primary Care Provider, Oncologist Call Non-Emergent contact if: your pain is not controlled, your pain is worsening, you have any medication questions . . "Provider Documentation" section prepared by Ole Cortes. . VTE Core Measure Inpt VTE Proph given/why not?: Contraindicated [place] Drug Monitoring Program Search Results: patient reviewed within database
--- NOTE | 2017-04-14 22:57 | Discharge Summary ---
Discharge Summary Date of Service Apr 14, 2017. Discharge Summary Admission Date: Apr 11, 2017 at 01:43 Discharge Date: Apr 13, 2017 Discharge Disposition: Home Principal Diagnosis: METASTASIS BONE PAIN Secondary Diagnoses/Problems: METASTATIC LUNG CA CONFUSION METASTATIC LUNG CA HTN GERD AMBULATORY DYSFUNCTION Procedures: CHEST ONE VIEW PORTABLE CLINICAL HISTORY: 77 years-old Male presenting with fever. TECHNIQUE: Portable upright AP view of the chest was obtained. COMPARISON: 01/10/2017. FINDINGS: Atherosclerosis of the aortic arch. Cardiac silhouette normal in size. Prominence of the left hilum likely vascular. Minimal hazy perihilar opacities. Trace nodular opacities may be present at the right lung base, which may be chronic. No other focal infiltrate. No large effusion or pneumothorax. Degenerative changes of the thoracic spine. Upper abdomen normal. IMPRESSION: 1. Trace nodular opacities at the right lung base may be chronic. Minimal hazy perihilar opacities could suggest reactive airways disease, mild volume overload, or viral bronchiolitis. No focal infiltrate to suggest pneumonia. Electronically signed by: Tay Michelle M.D. 04/11/2017 7:20 AM Dictated Date/Time: 04/11/2017 7:16 AM Consultations: Pain management Oncology Medication Reconciliation New Medications: Duloxetine HCl (Duloxetine HCl) 30 Mg Cap 30 MG PO QAM for 30 Days, CAP Oxycodone/Acetaminophen 10MG/325MG (Oxycodone/Acetaminophen 10MG/325MG) 1 Tab Tab 1 TAB PO Q6 PRN for Pain for 5 Days, #20 TAB Hold for lethargy and drowsiness Continued Medications: Aspirin (Aspirin Ec) 81 Mg Tab 81 MG PO DAILY Atorvastatin (Lipitor) 40 Mg Tab 40 MG PO DAILY, 5 Refills Chlorpheniramine Maleate (Chlor-Trimeton Allergy) 12 Mg Tab 1 TAB PO DAILY PRN for allergies Denosumab (Xgeva) 120 Mg/1.7 Ml Inj 1 DOSE Q6WK Dexamethasone (Decadron) 4 Mg Tab 2 MG PO DAILY Docusate Sodium (Colace) 100 Mg Cap 100 MG PO BID Ferrous Gluconate (Ferrous Gluconate) 324 Mg Tab 324 MG PO DAILY, TAB Lisinopril (Zestril) 5 Mg Tab 5 MG PO DAILY, TAB Lorazepam (Ativan) 0.5 Mg Tab 0.5 MG PO BID PRN for Anxiety, TAB Morphine Sulfate (Morphine Sulfate Er) 30 Mg Cap 30 MG PO Q12 Take 30 mg + 15 mg for total of 45 mg twice a day. Morphine Sulfate (Morphine Sulfate Er) 15 Mg Tab 15 MG PO BID, TAB Take 30 mg + 15 mg for total of 45 mg twice a day. 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 Per his he finished XRT last week and was having some weakness and difficulty with his balance, but then through the weekend he became more exhausted and fatigued and required alot more help with transferring around. She reports some intermittent low grade fevers and intermittent confusion which is not currently present. The patient denies any chills, nausea, vomiting, diarrhea, abdominal pain or other symptoms. Workup in the ER reveals a possible pneumonia, so he was started on IV antibiotics and given IVF. Physical Exam (per Admitting): General Appearance: WD/WN, no apparent distress Head: normocephalic, atraumatic Eyes: normal inspection, PERRL, sclerae normal ENT: hearing grossly normal, pharynx normal Neck: supple, no adenopathy, trachea midline Respiratory/Chest: lungs clear, normal breath sounds, no respiratory distress, no accessory muscle use Cardiovascular: regular rate, rhythm, no edema, no gallop, no JVD, no murmur , normal peripheral pulses Abdomen/GI: normal bowel sounds, non tender, soft, no organomegaly Extremities/Musculoskelatal: normal inspection, no pedal edema Neurologic/Psych: no motor/sensory deficits (did not assess gait), alert, normal mood/affect, normal reflexes, oriented x 3 Skin: normal color, warm/dry Hospital Course METASTASIS BONE PAIN MRI on 03/03/17 showed Extensive enhancing epidural soft tissue which begins at the L4-5 level, and extends to the S3 level. At the L5-S1 level through the visualized sacral levels, the spinal canal is completely filled with enhancing soft tissue consistent with epidural metastatic disease. Pain management on board Continue morphine extended release 45 mg BID, percocet 10mg/325 mg Continue Cymbalta 30mg daily for extra pain relief and continue Lyrica at 50mg TID. Follow up with pain management as an outpatient CONFUSION MRI brain Mar 03 did not reveal any mets. Confusion probably due to analgesics. Resolved METASTATIC LUNG CA Has been managed by Hematology / Oncology Dr. Machado HYPERTENSION Continue lisinopril. GERD Continue PPI. AMBULATORY DYSFUNCTION PT / OT. Fall precaution ? PNEUMONIA No fever. No cough. Procalcitonin normal. Offiacial radiology CXR report showed no infiltrates. Abx was discontinued Stable VTE PROPHYLAXIS No chemoprophylaxis due to thrombocytopenia. SCD's. Ambulate as able. DISPOSITION Follow up with Dr. Dodge on 04/20 @ 10:55 am Follow up with Oncology Dr. Machado Follow with pain management as needed. Total time spent on discharge = 35 min This includes examination of the patient, discharge planning, medication reconciliation, and communication with other providers. Discharge Instructions Discharge Instructions Date of Service Apr 13, 2017. Admission Reason for Admission: Bone pain Discharge Discharge Diagnosis / Problem: METASTASIS BONE PAIN Discharge Goals Goal(s): Decrease discomfort, Improve function, Improve disease control Activity Recommendations Activity Limitations: resume your previous activity (as tolerated) . Instructions / Follow-Up Instructions / Follow-Up Follow up with your primary care provider Dr. Dodge on 04/20 @ 10:55 Follow up with oncology Dr. Machado ( please call to schedule for the appointment) Follow up with pain management as needed Continue physical therapy Fall precaution Hold next dose of narcotic if you become drowsy and lethargy Do not drive or operate any machine after taking the narcotic pain medications Current Hospital Diet Patient's current hospital diet: AHA Diet (Heart Healthy) Discharge Diet Recommended Diet: AHA Diet (Heart Healthy) Pending Studies Studies pending at discharge: no Medical Emergencies . Who to Call and When: Medical Emergencies: If at any time you feel your situation is an emergency, please call 911 immediately. . Non-Emergent Contact Non-Emergency issues call your: Primary Care Provider, Oncologist Call Non-Emergent contact if: your pain is not controlled, your pain is worsening, you have any medication questions . . "Provider Documentation" section prepared by Ole Cortes. . VTE Core Measure Inpt VTE Proph given/why not?: Contraindicated [place] Drug Monitoring Program Search Results: patient reviewed within database Signed: Signed: The status of this report is Draft * If report status is Draft, the document has not been finalized by the responsible provider. Additional Copies To Nat Dodge D.O.
--- NOTE | 2017-04-15 12:44 | EDITING REQUIRED CODING QUERY ---
CODING QUERY To promote full compliance with coding requirements relating to patient care, provider participation is requested in all cases of certified medical records coder uncertainty. Please assist us with the question(s) below: Coding Question(s): Pancytopenia due to chemotherapy is documented on the H&P. The Progress Notes and Discharge Summary do not document this. In your clinical opinion, please clarify below. ( x ) Pancytopenia due to chemotherapy ( ) There is No Pancytopenia due to chemotherapy Physician's Response(s): Thank you Saray Strickland Principal Diagnosis: "_that condition established after study, to be chiefly responsible for occasioning the admission of the patient to the hospital for care." Co-Existing Principal Diagnosis: "_when two or more diagnoses equally meet the criteria for principal diagnosis as determined by the circumstances of admission, diagnostic work up, and/or therapy provided, and the Alphabetic Index, Tabular List, or another coding guideline does not provide sequencing direction, any one of the diagnoses may be sequenced first." "When the physician has documented what appears to be a current diagnosis in the body of the record, but has not included the diagnosis in the final diagnostic statement, the physician should be asked whether the diagnosis should be added." (Source Coding [facility] 2 QTR90. p3-4)
== END 2017-04-13 15:41 | disposition home or self-care (01) | DRG 947 ==
LOC: C.EDB 22:22 → C.MS4W 04-11 01:43 → EEVIPCON 04-11 01:43 → ENRESERV 04-11 01:58
PROVIDERS: ADMIT Hospitalist; ATTEND Internal Medicine
DX: G89.3 Neoplasm related pain (acute) (chronic) (principal); D61.810 Antineoplastic chemotherapy induced pancytopenia; C79.51 Secondary malignant neoplasm of bone; C34.90 Malignant neoplasm of unspecified part of unspecified bronchus or lung; M54.5 Low back pain; R26.2 Difficulty in walking, not elsewhere classified; G62.9 Polyneuropathy, unspecified; R41.0 Disorientation, unspecified; T39.95XA Adverse effect of unspecified nonopioid analgesic, antipyretic and antirheumatic, initial encounter; I10 Essential (primary) hypertension; K21.9 Gastro-esophageal reflux disease without esophagitis; E78.5 Hyperlipidemia, unspecified; Z79.899 Other long term (current) drug therapy; Z79.891 Long term (current) use of opiate analgesic; Z79.52 Long term (current) use of systemic steroids; Z79.82 Long term (current) use of aspirin; Z92.3 Personal history of irradiation; Z82.49 Family history of ischemic heart disease and other diseases of the circulatory system; Z82.3 Family history of stroke

== ENCOUNTER 2017-04-15 16:40 | Observation (INO) | payer OTHER ==
[~2017-04-15] VITALS: Ht 170.2 cm; Wt 66.3 kg
[~2017-04-15 16:40] MED LIST changes: +CYM30 PO; +MORP1CAP96 PO; +MORP1TAB11 PO; -MORP30TA PO; +OXYC-88 PO; -OXYC20TA50 PO
[2017-04-15] MEDS ORDERED: SODIUM CHLORIDE 0.9% 1000ML 1,000 ML IV STA (17:07)
[2017-04-15] MEDS ORDERED: OPTIRAY 320 IV PRN (17:30)
--- NOTE | 2017-04-15 18:05 | DIAGNOSTIC IMAGING REPORT ---
CHEST ONE VIEW PORTABLE HISTORY: Evaluate Fever/Sepsis COMPARISON: Chest 04/10/2017. FINDINGS: No pleural effusions. No pneumothorax. The heart is normal in size. Mild interstitial thickening at the lung bases persist. There are few linear densities at the right lung base suggestive of scarring or atelectasis. This is also unchanged. No new focal lung consolidations. IMPRESSION: No significant change compared to the prior study. No acute process. Electronically signed by: Miguel Haynes M.D. 04/15/2017 6:03 PM Dictated Date/Time: 04/15/2017 6:01 PM
[2017-04-15 18:29] LABS: HEMATOCRIT 27.5 % (42-52); HEMOGLOBIN 9.2 g/dL (14.0-18.0); MEAN CELL VOLUME 81.6 fL (80-100); MEAN CORPUSCULAR HEMOGLOBIN 27.3 pg (25-34); MEAN CORPUSCULAR HGB CONC 33.5 g/dl (32-36); MEAN PLATELET VOLUME 9.3 fL (7.4-10.4); NUCLEATED RED BLOOD CELL ABS 0.02 K/uL (0-0); PLATELET COUNT 131 K/uL (130-400); RED CELL DISTRIBUTION WIDTH CV 15.8 % (11.5-14.5); RED CELL DISTRIBUTION WIDTH SD 46.7 fL (36.4-46.3); WHITE BLOOD COUNT 3.29 K/uL (4.8-10.8)
[2017-04-15 18:52] LABS: ALBUMIN 2.4 gm/dl (3.4-5.0); ALKALINE PHOSPHATASE 108 U/L (45-117); ALT/SGPT 57 U/L (12-78); AST/SGOT 30 U/L (15-37); BLOOD UREA NITROGEN 16 mg/dl (7-18); CALCIUM 8.5 mg/dl (8.5-10.1); CARBON DIOXIDE 30 mmol/L (21-32); CREATININE 0.77 mg/dl (0.60-1.40); GLUCOSE 125 mg/dl (70-99); LIPASE 105 U/L (73-393); POTASSIUM 3.7 mmol/L (3.5-5.1); SODIUM 133 mmol/L (136-145)
[2017-04-15] MEDS ORDERED: OXYCODONE/ACETAMINOPHEN 5-325 TAB PO ONE (19:00)
--- NOTE | 2017-04-15 20:28 | DIAGNOSTIC IMAGING REPORT ---
CT OF THE ABDOMEN AND PELVIS WITH CONTRAST CLINICAL HISTORY: Urinary retention. Metastatic lung cancer. COMPARISON STUDY: PET/CT May 19, 2016, MRI of the pelvis July 16, 2016 and lumbar spine MRI March 03, 2017. TECHNIQUE: Following IV administration of 116 mL of Optiray-320, axial images of the abdomen and pelvis were obtained from the lung bases to the proximal femurs. Images were reviewed in the axial, sagittal, and coronal planes. IV contrast was administered without complication. A dose lowering technique was utilized adhering to the principles of ALARA. CT DOSE: 319.62 mGy.cm FINDINGS: Visualized portions of the lower chest demonstrate mild cardiomegaly. There is multifocal right pleural hyperdensity which could be related to prior pleurodesis. There are gallstones within the gallbladder. Mild splenomegaly is noted. The adrenal glands and pancreas are unremarkable Global. There is no significant biliary ductal dilatation. There are numerous suspected renal cyst. There are probable parapelvic cysts. This extensive atherosclerotic plaque of the abdominal aorta. There is no evidence for bowel obstruction. No pneumatosis, free air or portal venous gas is present. A Juárez balloon and gas are present within the bladder which is collapsed. Numerous blastic skeletal lesions are again noted. These are similar appearance to PET/CT of May 19, 2016. Note is again made of enhancing epidural soft tissue within the lower lumbar and sacral canal which was shown on MRI of March 03, 2017. There is involvement of multiple sacral neural foramen, greater on the right. Extension into the adjacent musculature is suspected. IMPRESSION: 1. Extensive skeletal metastases, as shown on prior imaging studies. Redemonstration of epidural spread of tumor within the lower lumbar and sacral canal as shown on MRI of March 03, 2017 with involvement of multiple sacral neural foramen and suspected extension into the adjacent musculature. Findings are suboptimally assessed by CT. 2. No bowel obstruction. 3. Mild splenomegaly. Electronically signed by: Sterling Gipson M.D. 04/15/2017 8:27 PM Dictated Date/Time: 04/15/2017 8:17 PM
[2017-04-15] MEDS ORDERED: MoRPHine SULFATE 4 MG/ML 1 ML CARP\\VIAL IV STA ×2 (20:53→23:03)
[2017-04-15 20:55] LABS: INFLUENZA B ANTIGEN Neg for Influ B (NEG)
--- NOTE | 2017-04-15 21:34 | EMERGENCY ROOM VISIT NOTE ---
History Report prepared by Laci: Ana Maria Sharp Under the Supervision of: Dr. Mandeep Conner M.D. First contact with patient: 16:44 Chief Complaint: UNABLE TO VOID Stated Complaint: CAN NOT URINATE, VERY WEAK, CONFUSED Nursing Triage Summary: Pt presents with who reports pt seen here Sun night. Pt unable to urinate, confused and unable to ambulate when here on Sun. reports pt had 5 days of radiation the beginning of Mar. Chemo in the past week or two. 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 "They think there is a mass in his spine that is pushing on his bladder." History of Present Illness The patient is a 77 year old male who presents to the Emergency Room with complaints of persistent difficulty urinating starting several days ago. The patient has felt that he needs to urinate, but has been unable to during the day. He only seems to urinate at night. He has had a low grade fever. His notes that he has been increasingly weak over the past 2 months. He denies any cough or congestion. He was discharged from the hospital several days ago after being admitted for weakness, confusion, and low grade fever, which was thought to be 2/2 to his radiation tx after normal procal. He did not have any problems urinating during his admission. His last bowel movement was during his admission. The patient has a history of lung cancer that has metastasized to his bone. He has recently had both radiation and chemo. Source of History: patient, family, spouse/significant other Onset: several days ago Position: other (global) Quality: other (difficulty urinating) Timing: other (persistent) Associated Symptoms: + fevers, + weakness, No cough Review of Systems See HPI for pertinent positives and negatives. A total of ten systems were reviewed and were otherwise negative. Past Medical & Surgical Medical Problems: (1) Dyslipidemia (2) GERD (gastroesophageal reflux disease) (3) HTN (hypertension) (4) Lung cancer (5) Lung cancer, upper lobe (6) Non-small cell carcinoma of lung, stage 4 (7) Pneumonia Surgical Problems: (1) History of tonsillectomy and adenoidectomy Family History FH: cardiovascular disease Stroke Social History Smoking Status: Former Smoker Alcohol Use: none Drug Use: none Marital Status: Housing Status: lives with family Occupation Status: retired Current/Historical Medications Scheduled Aspirin (Aspirin Ec), 81 MG PO DAILY Atorvastatin (Lipitor), 40 MG PO DAILY Denosumab (Xgeva), 1 DOSE Q6WK Dexamethasone (Decadron), 2 MG PO DAILY Docusate Sodium (Colace), 100 MG PO BID Duloxetine HCl (Duloxetine HCl), 30 MG PO QAM Ferrous Gluconate (Ferrous Gluconate), 324 MG PO DAILY Lisinopril (Zestril), 5 MG PO DAILY Morphine Sulfate (Morphine Sulfate Er), 30 MG PO Q12 Morphine Sulfate (Morphine Sulfate Er), 15 MG PO BID Multivitamin (Multivitamin), 1 TAB PO DAILY Omeprazole (Prilosec), 20 MG PO DAILY Oxycodone/Acetaminophen 10MG/325MG (Oxycodone/Acetaminophen 10MG/325MG), 1 TAB PO Q6 Pregabalin (Lyrica), 50 MG PO BID [herb laxative], 2 TABS PO BID Scheduled PRN Chlorpheniramine Maleate (Chlor-Trimeton Allergy), 1 TAB PO DAILY PRN for allergies Lorazepam (Ativan), 0.5 MG PO BID PRN for Anxiety Ondansetron Hcl (Zofran), 8 MG PO Q8 PRN for Nausea Prochlorperazine Maleate (Compazine), 10 MG PO Q6 PRN for Nausea or Vomiting Zolpidem Tartrate (Ambien), 5 MG PO HS PRN for Sleep Allergies Coded Allergies: No Known Allergies (Unverified , 04/15/17) Physical Exam Vital Signs Date Time Temp Pulse Resp B/P (MAP) Pulse Ox O2 Delivery O2 Flow Rate FiO2 04/15/17 23:01 106 20 110/56 98 Room Air 04/15/17 21:30 108 20 137/53 95 Room Air 04/15/17 21:01 146/63 95 Room Air 04/15/17 20:31 107 20 153/83 95 Room Air 04/15/17 20:16 106 04/15/17 20:04 146/75 96 Room Air 04/15/17 16:44 37.1 115 16 115/62 95 Room Air Physical Exam GENERAL: Awake, alert, fatigued-appearing, in no distress HENT: Normocephalic, atraumatic. Dry mucous membranes. Oropharynx otherwise unremarkable. EYES: Normal conjunctiva. Sclera non-icteric. NECK: Supple. No nuchal rigidity. FROM. No JVD. RESPIRATORY: Clear to auscultation. CARDIAC: Regular rate, normal rhythm. Extremities warm and well perfused. Pulses equal. ABDOMEN: Soft, non-distended. Mild suprapubic fullness. No tenderness to palpation. No rebound or guarding. No masses. RECTAL: Deferred. MUSCULOSKELETAL: Chest examination reveals no tenderness. The back is symmetrical on inspection without obvious abnormality. There is no CVA tenderness to palpation. Mild lower L-spine ttp. No step-offs. LOWER EXTREMITIES: Calves are equal size bilaterally and non-tender. No edema. No discoloration. NEURO: Normal sensorium. No sensory deficits noted. 4/5 BLE extremities. SKIN: No rash or jaundice noted. Medical Decision & Procedures ER Provider Diagnostic Interpretation: Xray results as stated below per my and radiologist interpretation. Radiology results as stated below per my review and radiologist interpretation: CHEST ONE VIEW PORTABLE HISTORY: Evaluate Fever/Sepsis COMPARISON: Chest 04/10/2017. FINDINGS: No pleural effusions. No pneumothorax. The heart is normal in size. Mild interstitial thickening at the lung bases persist. There are few linear densities at the right lung base suggestive of scarring or atelectasis. This is also unchanged. No new focal lung consolidations. IMPRESSION: No significant change compared to the prior study. No acute process. Electronically signed by: Miguel Haynes M.D. 04/15/2017 6:03 PM Dictated Date/Time: 04/15/2017 6:[address] OF THE ABDOMEN AND PELVIS WITH CONTRAST CLINICAL HISTORY: Urinary retention. Metastatic lung cancer. COMPARISON STUDY: PET/CT May 19, 2016, MRI of the pelvis July 16, 2016 and lumbar spine MRI March 03, 2017. TECHNIQUE: Following IV administration of 116 mL of Optiray-320, axial images of the abdomen and pelvis were obtained from the lung bases to the proximal femurs. Images were reviewed in the axial, sagittal, and coronal planes. IV contrast was administered without complication. A dose lowering technique was utilized adhering to the principles of ALARA. CT DOSE: 319.62 mGy.cm FINDINGS: Visualized portions of the lower chest demonstrate mild cardiomegaly. There is multifocal right pleural hyperdensity which could be related to prior pleurodesis. There are gallstones within the gallbladder. Mild splenomegaly is noted. The adrenal glands and pancreas are unremarkable Global. There is no significant biliary ductal dilatation. There are numerous suspected renal cyst. There are probable parapelvic cysts. This extensive atherosclerotic plaque of the abdominal aorta. There is no evidence for bowel obstruction. No pneumatosis, free air or portal venous gas is present. A Juárez balloon and gas are present within the bladder which is collapsed. Numerous blastic skeletal lesions are again noted. These are similar appearance to PET/CT of May 19, 2016. Note is again made of enhancing epidural soft tissue within the lower lumbar and sacral canal which was shown on MRI of March 03, 2017. There is involvement of multiple sacral neural foramen, greater on the right. Extension into the adjacent musculature is suspected. IMPRESSION: 1. Extensive skeletal metastases, as shown on prior imaging studies. Redemonstration of epidural spread of tumor within the lower lumbar and sacral canal as shown on MRI of March 03, 2017 with involvement of multiple sacral neural foramen and suspected extension into the adjacent musculature. Findings are suboptimally assessed by CT. 2. No bowel obstruction. 3. Mild splenomegaly. Electronically signed by: Sterling Gipson M.D. 04/15/2017 8:27 PM Dictated Date/Time: 04/15/2017 8:17 PM Laboratory Results 04/15/17 18:00 Red Blood Count 3.37, Mean Corpuscular Volume 81.6, Mean Corpuscular Hemoglobin 27.3, Mean Corpuscular Hemoglobin Concent 33.5, Mean Platelet Volume 9.3 04/15/17 18:00 Test 04/15/17 18:00 04/15/17 18:45 04/15/17 19:15 04/15/17 19:55 White Blood Count 3.29 K/uL (4.8-10.8) Red Blood Count 3.37 M/uL (4.7-6.1) Hemoglobin 9.2 g/dL (14.0-18.0) Hematocrit 27.5 % (42-52) Mean Corpuscular Volume 81.6 fL (80-100) Mean Corpuscular Hemoglobin 27.3 pg (25-34) Mean Corpuscular Hemoglobin Concent 33.5 g/dl (32-36) Platelet Count 131 K/uL (130-400) Mean Platelet Volume 9.3 fL (7.4-10.4) RDW Standard Deviation 46.7 fL (36.4-46.3) RDW Coefficient of Variation 15.8 % (11.5-14.5) Nucleated RBC Absolute Count (auto) 0.02 K/uL (0-0) Neutrophils % (Manual) 82.3 % Lymphocytes % (Manual) 6.2 % Monocytes % (Manual) 4.4 % Eosinophils % (Manual) 2.7 % Metamyelocytes % 0.9 % Myelocytes % 3.5 % Nucleated Red Blood Cells % 0.6 % Neutrophils # (Manual) 2.71 K/uL (1.4-6.5) Total Absolute Neutrophils 2.71 K/uL (1.4-6.5) Lymphocytes # (Manual) 0.20 K/uL (1.2-3.4) Total Absolute Lymphocytes 0.20 K/uL (1.2-3.4) Monocytes # (Manual) 0.14 K/uL (0.11-0.59) Eosinophils # (Manual) 0.09 K/uL (0-0.5) Metamyelocytes # 0.03 K/uL (0-0) Myelocytes # 0.12 K/uL (0-0) Ovalocytes 1+ Prothrombin Time 10.1 SECONDS (9.0-12.0) Prothromb Time International Ratio 1.0 (0.9-1.1) Anion Gap 7.0 mmol/L (3-11) Est Creatinine Clear Calc Drug Dose 74.7 ml/min Estimated GFR () 102.9 Estimated GFR (Non- 88.8 BUN/Creatinine Ratio 21.0 (10-20) Calcium Level 8.5 mg/dl (8.5-10.1) Magnesium Level 2.0 mg/dl (1.8-2.4) Total Bilirubin 0.5 mg/dl (0.2-1) Direct Bilirubin 0.2 mg/dl (0-0.2) Aspartate Amino Transf (AST/SGOT) 30 U/L (15-37) Alanine Aminotransferase (ALT/SGPT) 57 U/L (12-78) Alkaline Phosphatase 108 U/L (45-117) Troponin I < 0.015 ng/ml (0-0.045) Total Protein 6.0 gm/dl (6.4-8.2) Albumin 2.4 gm/dl (3.4-5.0) Lipase 105 U/L (73-393) Thyroid Stimulating Hormone (TSH) 1.560 uIu/ml (0.300-4.500) Lactic Acid Level 1.2 mmol/L (0.4-2.0) Urine Color YELLOW Urine Appearance CLEAR (CLEAR) Urine pH 6.0 (4.5-7.5) Urine Specific [place] 1.017 (1.000-1.030) Urine Protein NEG (NEG) Urine Glucose (UA) NEG (NEG) Urine Ketones NEG (NEG) Urine Occult Blood NEG (NEG) Urine Nitrite NEG (NEG) Urine Bilirubin NEG (NEG) Urine Urobilinogen NEG (NEG) Urine Leukocyte Esterase NEG (NEG) Influenza Type A Antigen Neg for Influ A (NEG) Influenza Type B Antigen Neg for Influ B (NEG) Laboratory results reviewed by me Medications Administered Medications (Trade) Dose Ordered Sig/Gal Route Start Time Stop Time Status Last Admin Dose Admin Sodium Chloride 1,000 ml @ 999 mls/hr Q1H1M STAT IV 04/15/17 17:07 04/15/17 18:07 DC 04/15/17 20:00 999 MLS/HR Oxycodone/ Acetaminophen (Percocet 5-325mg Tab) 2 tab NOW ONCE PO 04/15/17 19:00 04/15/17 19:01 DC 04/15/17 20:01 2 TAB Morphine Sulfate (MoRPHine SULFATE INJ) 4 mg NOW STAT IV 04/15/17 20:53 04/15/17 20:54 DC 04/15/17 20:59 4 MG ECG Per My Interpretation Indication: weakness Rate (beats per minute): 101 Rhythm: sinus tachycardia Findings: no acute ischemic change, other (normal axis) ED Course 1654: The patient was evaluated in room B11B. A complete history and physical exam was performed. 2104: I discussed the patient's case with Dr. Machado, [facility] oncology. He is familiar with the patient. He agrees with the plan to admit. He agrees with getting the MRI keeping in mind that with worsening spinal mets and cauda equina the patient is at the end of the road for radiation treatment and at that point should consider palliative care. 2109: Upon reexamination, the patient was resting comfortably. I discussed the test results and treatment plan with him and his family. The patient will be evaluated for further management. 2118: [facility] will evaluate the patient for further treatment. Medical Decision I reviewed the patient's past medical history, medications, and the nursing notes as described above. Differential diagnosis: UTI, pyelonephritis, renal stone, worsening malignancy, intraabdominal mass, worsening spinal mets with cauda equina, dehydration, electrolyte abnormality, pneumonia, bronchitis, sepsis. The patient is a 77-year-old gentleman with a past medical history of metastatic lung cancer to his spine and sacrum followed by oncology Dr. Machado who presents emergency Department with urinary retention over the past day after being admitted to the hospital last week for question pneumonia per hpi. The patient is fatigued appearing but in no acute distress, afebrile with stable vital signs. Bladder scan by RN demonstrates 600 mL of urine however the patient unable to urinate despite attempt while standing. Labs similar to recent with WBC 3 no neutropenia. H&H stable. UA negative for infection. CT abdomen and pelvis demonstrates known skeletal metastases however no clear worsening from prior. However, suboptimal study to assess for worsening of patient's known spinal/epidural metastases. This was discussed with Dr. Machado, the patient's [facility] oncologist, who is familiar with the patient and further confirms as was described by the family that the patient has received numerous radiation treatments in the past and is no longer considered a radiation candidate. Dr. Machado agrees with plan admission and MRI to further characterize the patient's known spina/epidural mets related to the patient's symptoms however confirms that if worsening metastasis and even cauda equina are identified, the patient has no treatment options available as he has been previously declined for further radiation and also surgical intervention. Case was discussed with Dr. Bates, [facility] hospitalist, who will admit the patient for further management. Medication Reconcilliation Current Medication List: was personally reviewed by me Blood Pressure Screening Patient's blood pressure: Normal blood pressure Blood pressure disposition: Did not require urgent referral Consults Time Called: [phone] Consulting Physician: Dr. Machado, [facility] oncology Returned Call: [phone] I discussed the patient's case with him. He is familiar with the patient. He agrees with the plan to admit. He agrees with getting the MRI keeping in mind that with worsening spinal mets and cauda equina the patient is at the end of the road for radiation treatment and at that point should consider palliative care. Additional Consults: Time Called: [phone] Consulted Physician: Dr. Niño [facility] hospitalist Returned Call: [phone] Additional Comments: I discussed the patient with him - He will evaluate the patient for further treatment. Impression Primary Impression: Acute urinary retention Additional Impression: Metastatic disease Scribe Attestation The scribe's documentation has been prepared under my direction and personally reviewed by me in its entirety. I confirm that the note above accurately reflects all work, treatment, procedures, and medical decision making performed by me. Departure Information Dispostion Being Evaluated By Hospitalist Prescriptions Oxycodone/Acetaminophen 10MG/325MG (OXYCODONE/ACETAMINOPHEN 10MG/325MG) 1 Tab Tab 1 TAB PO Q6 for 5 Days, #20 TAB Hold for lethargy and drowsiness Prov: Areille Moreno, GUEVARA 04/15/17 Referrals No Doctor, Assigned (PCP) Patient Instructions My [facility] Problem Qualifiers
[2017-04-15] MEDS ORDERED: OXYC-88 PO (22:04)
[2017-04-15] MEDS ORDERED: GADAVIST IV PRN (22:45)
--- NOTE | 2017-04-15 23:42 | DIAGNOSTIC IMAGING REPORT ---
MRI OF THE LUMBAR SPINE WITH AND WITHOUT CONTRAST CLINICAL HISTORY: Metastatic lung cancer. Urinary retention. COMPARISON STUDY: Lumbar spine MRI March 03, 2017. TECHNIQUE: Utilizing a 1.5 Stacy magnet and dedicated coil, multiplanar, multiecho imaging of the lumbar spine was performed before and after uneventful IV administration of 6 mL of Gadavist. FINDINGS: For purposes of numbering on this exam, the L5-S1 disc space is assigned to image 26 of 35. The conus terminates at the mid L1 level. A Juárez balloon is present within the bladder which is collapsed. Innumerable foci of marrow replacement are again noted, involving the lower thoracic spine, lumbar spine, sacrum and visualized iliac bones. There is extensive epidural extension of tumor which begins at the L4-L5 level and extends through the upper S2 level. Extensive epidural extension has increased since MRI of March 03, 2017. This results in marked narrowing of the lower lumbar and upper sacral canal as the tumor essentially fills the canal. Note is made of extension of tumor through multiple sacral neural foramen, more pronounced on the right. Extension into the adjacent musculature is noted on the right. Epidural tumor enhancement appears to have slightly decreased since exam of March 03, 2017. This has slightly progressed as well. Otherwise, the paravertebral soft tissues are unremarkable. Postcontrast images are mildly compromised due to motion artifact. IMPRESSION: Extensive skeletal metastatic disease involving the lower thoracic spine, lumbar spine, sacrum and iliac bones. Extensive epidural extension of tumor extending from the L4-L5 through upper S2 level which results in marked narrowing of the central canal. Tumor bulk appears mildly increased since MRI of March 03, 2017 with possible interval decrease in enhancement, possibly treatment related. Tumor obliterates the canal at these levels with extension through the sacral neural foramen and into the adjacent musculature. Electronically signed by: Sterling Gipson M.D. 04/15/2017 11:41 PM Dictated Date/Time: 04/15/2017 11:28 PM
[2017-04-15] MEDS ORDERED: PREGABALIN 50 MG CAP PO ONE (23:54)
[2017-04-15] MEDS ORDERED: MoRPHine SULFATE CR 15 MG TAB (MS CONTIN) PO ONE (23:54)
[2017-04-15] MEDS ORDERED: ZOLPIDEM TARTRATE 10 MG TAB PO ONE (23:54)
[2017-04-15] MEDS ORDERED: DOCUSATE SODIUM/SENNA 50/8.6MG TAB PO ONE (23:54)
[2017-04-16] VITALS (7 sets, daily range): BP systolic 120–160; BP diastolic 66–77; PULSE 89–128; TEMP 36.6–37.5; O2SAT 97–100; Ht 170.2 cm; Wt 66.3 kg
[2017-04-16] MEDS ORDERED: LORAZEPAM 0.5 MG TAB PO PRN
[2017-04-16] MEDS ORDERED: PROCHLORPERAZINE INJ 5 MG in SYRINGE 4 ML IV PRN
[2017-04-16] MEDS ORDERED: ACETAMINOPHEN 325 MG TAB PO PRN
--- NOTE | 2017-04-16 00:02 | History and Physical ---
History & Physical Date & Time of Service: Apr 15, 2017 at 23:25 Chief Complaint: Can Not Urinate, Very Weak, Confused Primary Care Physician: Nat Dodge D.O. History of Present Illness Source: patient, family, clinic records, hospital records Pt is 77 y/o M with PMH Stage IV Lung CA with bony mets. Pt with hx hospitalization on 04/11/17 - 04/13/17 for weakness, confusion. Pt follows with Dr Machado and was seen by pain management last admission. Hx metastatic in the lumbosacral epidural space and pt with low back pain and bilateral LE pain with reported increasing LE weakness. States was having some trouble urinating over past weeks, however at night would have urinary incontinence in brief. states past 2 days pt hasn't been able to urinate. States been having constant sensation needs to urinate and having lower abdominal pressure, but unable to urinate. Pt taking MS Contine 45 mg BID, Oxycodone/acetaminophen 10mg x 6 hrs, and Lyrica 50mg BID per . She states he was started on cymbalta and seems to be sleeping better now and hasn't had to use ambien. reports pt with some intermittent confusion also. Increased trouble trying to ambulate secondary to weakness and pain. Unaware of any fevers past 2 days. No BM x 3 days. reports pt wasn't on his normal bowel regimen when he was hospitalized a couple of days ago. Pt denies VOSS, dizziness, neck pain, CP, SOB, cough, or known rashes, hematuria, diarrhea, syncope. Past Medical/Surgical History Medical Problems: (1) Dyslipidemia Status: Chronic (2) GERD (gastroesophageal reflux disease) Status: Chronic (3) HTN (hypertension) Status: Chronic (4) Lung cancer Status: Chronic (5) Lung cancer, upper lobe Permanent Comment: Right upper lobe lesion biopsies non-small cell carcinoma Bone metastasis Status post completion of radiation therapy lumbar spine 10/21 2011 received 4500 cGy Metastasis the pelvis with associated pain Status post completion of radiation therapy to bilateral SI joints 12/05/2013 received 4500 cGy Discomfort of the sternum and finding of lesion in the right humerus Status post completion of radiation therapy to the right humerus and sternum received 3000 cGy to each area Pain of the right SI area MRI 03/03/2017 showing epidual mass L4- L5, extending to S3. Progression of disease Status post completion of radiation therapy 03/29/2017. He received 2500 cGy utilizing VMAT. Status: Chronic Surgical Problems: (1) History of tonsillectomy and adenoidectomy Status: Resolved Family History FH: cardiovascular disease Stroke Social History Smoking Status: Former Smoker Drug Use: none Marital Status: Housing status: lives with family Occupational Status: retired Immunizations History of Influenza Vaccine: Yes Influenza Vaccine Date: Dec 01, 2016 History of Tetanus Vaccine?: No History of Pneumococcal: Yes Pneumococcal Date: Jan 15, 2009 History of Hepatitis B Vaccine: No Multi-Drug Resistant Organisms History of MDRO: No Allergies Coded Allergies: No Known Allergies (Unverified , 04/15/17) Home Medications Scheduled Aspirin (Aspirin Ec), 81 MG PO DAILY Atorvastatin (Lipitor), 40 MG PO DAILY Denosumab (Xgeva), 1 DOSE Q6WK Dexamethasone (Decadron), 2 MG PO DAILY Docusate Sodium (Colace), 100 MG PO BID Duloxetine HCl (Duloxetine HCl), 30 MG PO QAM Ferrous Gluconate (Ferrous Gluconate), 324 MG PO DAILY Lisinopril (Zestril), 5 MG PO DAILY Morphine Sulfate (Morphine Sulfate Er), 30 MG PO Q12 Morphine Sulfate (Morphine Sulfate Er), 15 MG PO BID Multivitamin (Multivitamin), 1 TAB PO DAILY Omeprazole (Prilosec), 20 MG PO DAILY Oxycodone/Acetaminophen 10MG/325MG (Oxycodone/Acetaminophen 10MG/325MG), 1 TAB PO Q6 Pregabalin (Lyrica), 50 MG PO BID [herb laxative], 2 TABS PO BID Scheduled PRN Chlorpheniramine Maleate (Chlor-Trimeton Allergy), 1 TAB PO DAILY PRN for allergies Lorazepam (Ativan), 0.5 MG PO BID PRN for Anxiety Ondansetron Hcl (Zofran), 8 MG PO Q8 PRN for Nausea Prochlorperazine Maleate (Compazine), 10 MG PO Q6 PRN for Nausea or Vomiting Zolpidem Tartrate (Ambien), 5 MG PO HS PRN for Sleep Review of Systems Constitutional: + weakness, No fever, No chills, No sweats Eyes: No eye pain, No redness, No diplopia ENT: No unusual epistaxis, No trouble swallowing Respiratory: No cough, No shortness of breath Cardiovascular: No chest pain, No edema, No palpitations Abdomen: No GI bleeding Genitourinary - Male: + problem reported (see HPI) Integumentary: No rash Physical Exam Vital Signs Date Time Temp Pulse Resp B/P (MAP) Pulse Ox O2 Delivery O2 Flow Rate FiO2 04/15/17 23:01 106 20 110/56 98 Room Air 04/15/17 21:30 108 20 137/53 95 Room Air 04/15/17 21:01 146/63 95 Room Air 04/15/17 20:31 107 20 153/83 95 Room Air 04/15/17 20:16 106 04/15/17 20:04 146/75 96 Room Air 04/15/17 16:44 37.1 115 16 115/62 95 Room Air General Appearance: + pertinent finding (chronic ill appearance, uncomfortable appearing, frequent movement of LE to try to find position of comfort) Head: normocephalic, atraumatic Eyes: normal inspection, PERRL, EOMI, sclerae normal ENT: hearing grossly normal, pharynx normal, + pertinent finding (mildly dry mucous membranes) Neck: supple, trachea midline Respiratory/Chest: lungs clear, no respiratory distress, no accessory muscle use Cardiovascular: normal peripheral pulses, + tachycardia Abdomen/GI: normal bowel sounds, non tender, soft Back: no CVA tenderness, + pertinent finding (tenderness lumbar region) Extremities/Musculoskelatal: normal capillary refill, no pedal edema, + pertinent finding (distal pulses intact, ROM intact, non-tender to palpation at this time) Neurologic/Psych: alert, + pertinent finding (oriented to person and place) Skin: normal color, warm/dry Diagnostics Laboratory Results Results Past 24 Hours Test 04/15/17 18:00 04/15/17 18:45 04/15/17 19:15 04/15/17 19:55 Range/Units White Blood Count 3.29 4.8-10.8 K/uL Red Blood Count 3.37 4.7-6.1 M/uL Hemoglobin 9.2 14.0-18.0 g/dL Hematocrit 27.5 42-52 % Mean Corpuscular Volume 81.6 80-100 fL Mean Corpuscular Hemoglobin 27.3 25-34 pg Mean Corpuscular Hemoglobin Concent 33.5 32-36 g/dl Platelet Count 131 130-400 K/uL Mean Platelet Volume 9.3 7.4-10.4 fL RDW Standard Deviation 46.7 36.4-46.3 fL RDW Coefficient of Variation 15.8 11.5-14.5 % Nucleated RBC Absolute Count (auto) 0.02 0-0 K/uL Neutrophils % (Manual) 82.3 % Lymphocytes % (Manual) 6.2 % Monocytes % (Manual) 4.4 % Eosinophils % (Manual) 2.7 % Metamyelocytes % 0.9 % Myelocytes % 3.5 % Nucleated Red Blood Cells % 0.6 % Neutrophils # (Manual) 2.71 1.4-6.5 K/uL Total Absolute Neutrophils 2.71 1.4-6.5 K/uL Lymphocytes # (Manual) 0.20 1.2-3.4 K/uL Total Absolute Lymphocytes 0.20 1.2-3.4 K/uL Monocytes # (Manual) 0.14 0.11-0.59 K/uL Eosinophils # (Manual) 0.09 0-0.5 K/uL Metamyelocytes # 0.03 0-0 K/uL Myelocytes # 0.12 0-0 K/uL Ovalocytes 1+ Prothrombin Time 10.1 9.0-12.0 SECONDS Prothromb Time International Ratio 1.0 0.9-1.1 Sodium Level 133 136-145 mmol/L Potassium Level 3.7 3.5-5.1 mmol/L Chloride Level 96 98-107 mmol/L Carbon Dioxide Level 30 21-32 mmol/L Anion Gap 7.0 3-11 mmol/L Blood Urea Nitrogen 16 7-18 mg/dl Creatinine 0.77 0.60-1.40 mg/dl Est Creatinine Clear Calc Drug Dose 74.7 ml/min Estimated GFR () 102.9 Estimated GFR (Non- 88.8 BUN/Creatinine Ratio 21.0 10-20 Random Glucose 125 70-99 mg/dl Calcium Level 8.5 8.5-10.1 mg/dl Magnesium Level 2.0 1.8-2.4 mg/dl Total Bilirubin 0.5 0.2-1 mg/dl Direct Bilirubin 0.2 0-0.2 mg/dl Aspartate Amino Transf (AST/SGOT) 30 15-37 U/L Alanine Aminotransferase (ALT/SGPT) 57 12-78 U/L Alkaline Phosphatase 108 45-117 U/L Troponin I < 0.015 0-0.045 ng/ml Total Protein 6.0 6.4-8.2 gm/dl Albumin 2.4 3.4-5.0 gm/dl Lipase 105 73-393 U/L Thyroid Stimulating Hormone (TSH) 1.560 0.300-4.500 uIu/ml Lactic Acid Level 1.2 0.4-2.0 mmol/L Urine Color YELLOW Urine Appearance CLEAR CLEAR Urine pH 6.0 4.5-7.5 Urine Specific [place] 1.017 1.000-1.030 Urine Protein NEG NEG Urine Glucose (UA) NEG NEG Urine Ketones NEG NEG Urine Occult Blood NEG NEG Urine Nitrite NEG NEG Urine Bilirubin NEG NEG Urine Urobilinogen NEG NEG Urine Leukocyte Esterase NEG NEG Influenza Type A Antigen Neg for Influ A NEG Influenza Type B Antigen Neg for Influ B NEG Microbiology Results 04/15/17 Blood Culture, Received Pending 04/15/17 Blood Culture, Received Pending Diagnostic Radiology CXR: IMPRESSION: No significant change compared to the prior study. No acute process. CT ABD/PELVIS: IMPRESSION: 1. Extensive skeletal metastases, as shown on prior imaging studies. Remonstration of epidural spread of tumor within the lower lumbar and sacral canal as shown on MRI of March 03, 2017 with involvement of multiple sacral neural foramen and suspected extension into the adjacent musculature. Findings are suboptimally assessed by CT. 2. No bowel obstruction. 3. Mild splenomegaly. Impression Assessment and Plan URINARY RETENTION Possible secondary to worsening spine mets or narcotics. Juárez placed in ER -continue Juárez -MRI lumbar spine to further assess METASTATIC LUNG CA TO BONE/BACK PAIN/WEAKNESS -Oncology consult -pain management consult -continue morphine, oxycodone, Lyrica, Cymbalta CONFUSION Intermittent confusion reported by . Had MRI brain 02/2017 without mets. Question secondary to medications HTN continue lisinopril GERD continue PPI Disposition admit med/surg pt and family report full code at this time Pt was seen with Dr Niño. See addendum for further assessment and plan Level of Care Med/Surg Additional Copies To Nat Dodge D.O. Assessment/Plan IM ATTENDING : Patient seen and examined. History obtained from patient, family, records. Preceding documentation by Ms. Arielle Moreno PA-C reviewed. In addition, MRI of the lumbar spine read extensive skeletal metastatic disease involving the lower thoracic spine, lumbar spine, sacrum, iliac bones. Extensive epidural extension of tumor extending from L4-L5 to upper S2 level, which resulted in marked narrowing of central canal, tumor bulk appears mildly increased since MRI from February 2017 with possible interval decrease in enhancement. Tumor obliterating at this level, adjacent musculature. FINAL ASSESSMENT AND PLAN as follows: 1. Worsening back pain, LE weakness, urinary retention. Chronic cancer pain on narcotics, steroid Rx Progression of spinal mets (hx metastatic NSCLC sp radiation; chemotherapy currently on hold. Administration of home narcotics by patient's (somewhat unbridled) may be contributing to weakness, urinary retention, intermittent confusion. Patient's admits to giving breakthrough narcotic medication even if patient is not complaining of pain. 2. Hypertension, stable. 3. Hyponatremia. clinical dehydration. 4. Narcotic-induced constipation. 5. Past tobacco abuse. 6. Chronic anemia, hemoglobin at baseline. 7. Chronic thrombocytopenia. OBS GMF analgesia. [facility] for followup evaluation for worsening cancer pain. Patient's re-educated about adverse effects of narcotic medications. Maintain Juárez catheter now. IVF Bowel regimen. May benefit from Relistror if no response to oral laxatives. Inpatient Oncology follow-up evaluation eval RE cancer progression; ? Initiate palliative care discussions (ER provider already touch with Dr. Machado.) PT OT eval DVT prophylaxis, SCDs. RE thrombocytopenia Full code.
[2017-04-16] MEDS ORDERED: POLYETHYLENE (MIRALAX) 17 GM PACK PO ONE (00:05)
[2017-04-16] MEDS ORDERED: LACTULOSE SYRUP 30 GM/45 ML UDP PO STA (00:05)
[2017-04-16] MEDS ORDERED: POLYETHYLENE (MIRALAX) 17 GM PACK PO PRN (00:15)
[2017-04-16] MEDS ORDERED: NSS + 20MEQ KCL 1000ML 1,000 ML IV ONE (00:30)
[2017-04-16] MEDS ORDERED: IV FLUIDS COMPLETED PRN (00:45)
[2017-04-16] MEDS: OXYCODONE/ACETAMINOPHEN 10/325MG TAB PO PRN ×2 (05:57→12:30)
--- NOTE | 2017-04-16 06:41 | HISTORY & PHYSICAL EXAMINATION ---
DATE OF ADMISSION: 04/16/2017 IM ATTENDING : Patient seen and examined. History obtained from patient, family, records. Preceding documentation by Ms. Arielle Moreno PA-C reviewed. In addition, MRI of the lumbar spine read extensive skeletal metastatic disease involving the lower thoracic spine, lumbar spine, sacrum, iliac bones. Extensive epidural extension of tumor extending from L4-L5 to upper S2 level, which resulted in marked narrowing of central canal, tumor bulk appears mildly increased since MRI from February 2017 with possible interval decrease in enhancement. Tumor obliterating at this level, adjacent musculature. FINAL ASSESSMENT AND PLAN as follows: 1. Worsening back pain, LE weakness, urinary retention. Chronic cancer pain on narcotics, steroid Rx Progression of spinal mets (hx metastatic NSCLC sp radiation; chemotherapy currently on hold. Administration of home narcotics by patient's (somewhat unbridled) may be contributing to weakness, urinary retention, intermittent confusion. Patient's admits to giving breakthrough narcotic medication even if patient is not complaining of pain. 2. Hypertension, stable. 3. Hyponatremia. clinical dehydration. 4. Narcotic-induced constipation. 5. Past tobacco abuse. 6. Chronic anemia, hemoglobin at baseline. 7. Chronic thrombocytopenia. OBS GMF analgesia. [facility] for followup evaluation for worsening cancer pain. Patient's re-educated about adverse effects of narcotic medications. Maintain Juárez catheter now. IVF Bowel regimen. May benefit from Relistror if no response to oral laxatives. Inpatient Oncology follow-up evaluation eval RE cancer progression; ? Initiate palliative care discussions (ER provider already touch with Dr. Machado.) PT OT eval DVT prophylaxis, SCDs. RE thrombocytopenia Full code. MTDD
[2017-04-16 07:02] LABS: BASO % 0.3 %; BASO ABS # 0.01 K/uL (0-0.2); EOS % 2.3 %; EOS ABS # 0.07 K/uL (0-0.5); HEMATOCRIT 25.8 % (42-52); HEMOGLOBIN 8.7 g/dL (14.0-18.0); IG# 0.11 K/uL (0.00-0.02); LYMPH % 10.2 %; LYMPH ABS # 0.31 K/uL (1.2-3.4); MEAN CELL VOLUME 80.9 fL (80-100); MEAN CORPUSCULAR HEMOGLOBIN 27.3 pg (25-34); MEAN CORPUSCULAR HGB CONC 33.7 g/dl (32-36); MEAN PLATELET VOLUME 8.6 fL (7.4-10.4); MONO % 5.9 %; MONO ABS # 0.18 K/uL (0.11-0.59); NEUT % 77.7 %; NEUT ABS # 2.35 K/uL (1.4-6.5); PLATELET COUNT 115 K/uL (130-400); RED CELL DISTRIBUTION WIDTH CV 15.8 % (11.5-14.5); RED CELL DISTRIBUTION WIDTH SD 46.5 fL (36.4-46.3); WHITE BLOOD COUNT 3.03 K/uL (4.8-10.8)
[2017-04-16 07:40] LABS: CALCIUM 8.1 mg/dl (8.5-10.1); CREATININE 0.66 mg/dl (0.60-1.40); POTASSIUM 3.7 mmol/L (3.5-5.1)
[2017-04-16] MEDS ORDERED: DEXAMETHASONE 4 MG TAB PO SCH (08:00)
[2017-04-16] MEDS ORDERED: PREGABALIN 50 MG CAP PO SCH (08:00)
[2017-04-16] MEDS: FERROUS GLUCONATE 324 MG TAB PO SCH (08:06)
[2017-04-16] MEDS: DOCUSATE SODIUM/SENNA 50/8.6MG TAB PO SCH ×2 (08:06→20:18)
[2017-04-16] MEDS: MULTIVITAMIN TAB PO SCH (08:07)
[2017-04-16] MEDS: DULOXETINE (CYMBALTA) 30 MG CAP PO SCH (08:07)
[2017-04-16] MEDS: PANTOprazole SOD 40 MG TAB PO SCH (08:07)
[2017-04-16] MEDS: ATORVASTATIN 20 MG TAB PO SCH (08:07)
[2017-04-16] MEDS: LISINOPRIL 5 MG TAB PO SCH (08:08)
[2017-04-16] MEDS: PREGABALIN 50 MG CAP PO SCH ×3 (08:10→19:31)
[2017-04-16] MEDS: MoRPHine SULFATE CR 15 MG TAB (MS CONTIN) PO SCH ×2 (08:10→19:31)
[2017-04-16] MEDS ORDERED: DEXAMETHASONE 1 MG TAB PO ONE (11:15)
--- NOTE | 2017-04-16 15:13 | Medical Consult ---
Consultation Date of Consultation: Apr 16, 2017. Attending Physician: Ole Cortes M.D. History of Present Illness Hematology/Oncology consult: Evaluation and management of stage IV non-small cell lung cancer, has sacral and lower lumbar spine lesion, now admitted at [facility] for retention of the urine. Date of consultation: 04/16/[address] OLIVER: 77-year-old male Oncology history: -non-small cell lung cancer, primary site involving the right infrahilar region Multiple bony metastatic disease at that time the diagnosis 2010 Malignant pleural effusion noted in early 2016. He received 6 different types of chemotherapy treatment (gemcitabine/carboplatin , oral Tarceva, paclitaxel/carboplatin, Alimta, afatinib, Nivolumab (Opdivo)). Recently started him on Nivolumab (Opdivo), last cycle received on 03/30/2017. He also received 2nd round of radiation treatment to the sacral lesion recently under the guidance of Dr. Machado at [facility]. Recently he was admitted at [facility] for some intermittent confusion status, brain imaging study showed no evidence of metastatic disease involving the brain. It was thought to be metabolic in nature, perhaps opioid induced. For the last the few days he had some trouble in the urination, he could not pass urine for several hours, he then came to the [facility] ER, now admitted for retention lesion, had Juárez 's catheter placement, also has some constipation for the last few days, he took Colace earlier, MiraLax recently, no significant focal neurological he weakness but feeling somewhat weak and tired, when I saw him at bedside today, he had no focal neurological symptoms, no headache, no nausea, no vomiting, no fever, no bleeding from any sites, no hematuria, quite alert and oriented, as per his and daughter, sometimes he has confusion status intermittently, sometimes trouble in the ambulation. He is not on any oxygen therapy at home. Regarding lower back pain he is on MS contain 45 mg every 12 hourly and oxycodone for the breakthrough pain. Earlier when he had increasing lower back pain and went started him on radiation treatment, he was started on Decadron therapy which has been tapered down gradually to around 2 mg per day. He is also on Lyrica. he could not tolerate fentanyl patch in the past. REVIEW OF SYSTEMS: GENERAL: Some weight loss present, feeling weak and tired,, no focal weakness, no fatigue, no fever, sweats or chills. SKIN: No skin rash, no bruising. HEAD: No new headache, no dizziness. EYES: No recent change in the vision, no diplopia, EARS: No earache no tinnitus, NOSE: No epistaxis, No nasal discharge or stuffiness, MOUTH: No sores, no dysphagia, no hoarseness of voice, NECK: No lumps, No swelling in thyroid area. No stiffness. PULMONARY: No cough, No shortness of breath, no hemoptysis, no chest pain, No wheezing. CARDIOVASCULAR: No anginal chest pain, no PND, no orthopnea. No palpitation, no leg edema. No syncope. GASTROINTESTINAL: No abdominal pain, no nausea or vomiting. No diarrhea, constipation present. No blood in stool or black tarry stools. No abdominal distention. UROLOGIC: No burning urination. No hematuria. MUSCULOSKELETAL: No joint pain, No joint swelling, no muscle weakness. HEMATOLOGIC: No anemia, no bleeding disorder, No bruising. No history of blood transfusion. NEUROLOGIC: No seizures, no focal weakness, no speech difficulty, some memory disturbances intermittently present. No tingling or numbness of the extremities. PSYCHIATRIC: No depression. No anxiety. No psychosis. Past medical and surgical history: -hypertension, GERD, hyperlipidemia. Social history: Nonsmoker, denies any ETOH abuse, lives with his . Ambulating with the help of the cane. Family history: Not significant Medications: Please reviewed his chart for detailed list of medications. Allergies: None. On exam: - Alert and oriented x3, well built man, not in any distress. - HEENT: no icterus, no pallor, Throat: Normal. - Neck: No palpable cervical lymphadenopathy. - Chest: clear to auscultation. - Abdomen: soft, nontender, no hepatomegaly, no splenomegaly. - No focal neuro deficit. - Extremities: no finger clubbing, no leg edema. Lab: Blood workup done on 04/16/2017: -WBC 3000, H&H of 8.7/25.8, Platelet count of 115,000. -BUN/Creat: 11/0.6, calcium 8.1 -Normal liver function test (04/15/2017) Imaging: -CT scan of the abdomen pelvis done on 04/15/2017--> extensive bony metastatic disease, epidural tumor within the lower lumbar and sacral can now with involvement of multiple sacral neural foramina and suspected extension into the adjacent musculature. No bowel obstruction, mild splenomegaly noted. -MRI of the lumbar spine done on 04/05/2017--> extensive bony metastatic disease involving the lower thoracic spine, lumbar spine, sacrum and iliac bones, extensive epidural extension of the tumor extending from the L4-L5 through upper S2 level which result in markedly narrowing of the central canal, tumor bulk slightly increased with some decreased enhancement. ASSESSMENT AND PLAN: 77-year-old male, a case of non-small cell lung cancer involving right lung with widespread bony metastatic disease at that time the diagnosis in 2009, received several chemotherapy treatment over the last 8 years, has main bulk of the disease involving the lower lumbar and the sacral spine which is causing local discomfort, had a radiation treatment in the past, recently had a another round of radiation treatment at the same sacral lesion, pain is somewhat under control with current MS Contin 45 mg every 12 hourly and oxycodone for the breakthrough pain but now he has retention the urine, required Juárez 's catheter placement, he is on small dose of Decadron at 2 mg per day. I spoke with the patient 's , his daughter as well as patient at home, I reviewed the his overall clinical condition, earlier he was seen by Dr. Ellison at [facility] for possible surgical intervention for declined for any kind surgical intervention at that time, had received radiation treatment to that area on 2 occasions and so no more radiation treatment would be indicated at this time, recently I started him on Navelbine chemotherapy but his oral clinical condition is gradually deteriorating requiring frequent hospitalization , declining performed status, ambulating with the help of the cane. Current symptoms of retention the urine and constipation could be related to the sacral nerve plexus involvement and he may require Juárez 's catheter or intermittent self catheterization at home. Meanwhile I would like to increase the dose of Decadron to 4 mg twice a day and will see how he does. It appears that his disease is likely to be refractory to the chemotherapy treatment and so next level of chemotherapy is likely to have very low response rate. Will follow up. Thanks for the consultation. Dr. Rick Machado Hem/Onc (This note was completed using the dictation program Fluency Direct. As such, there may be misspellings, word substitutions, or other variations that should not change the essence of the clinical content of this encounter note. If there is need for further clarification, please direct questions to the provider listed above.) Past Medical/Surgical History Medical Problems: (1) Acute urinary retention Status: Acute (2) Bacteremia Status: Acute (3) Confusion Status: Acute (4) Infected venous access port Status: Acute (5) Lung cancer Status: Chronic (6) Metastatic disease Status: Acute Family History FH: cardiovascular disease Stroke Social History Smoking Status: Never Smoker Drug Use: none Marital Status: Housing Status: lives with family Occupation Status: retired Allergies Coded Allergies: No Known Allergies (Unverified , 04/15/17) Current Inpatient Medications Current Inpatient Medications Medications (Trade) Dose Ordered Sig/Gal Route Start Time Stop Time Status Last Admin Dose Admin Ioversol (Optiray 320) 100 ml UD PRN IV 04/15/17 17:30 04/19/17 17:29 Gadobutrol (Gadavist) 6 mmol UD PRN IV 04/15/17 22:45 04/19/17 22:44 Atorvastatin Calcium (Lipitor Tab) 40 mg DAILY PO 04/16/17 08:00 05/16/17 08:59 04/16/17 08:07 40 MG Duloxetine HCl (Cymbalta Cap) 30 mg QAM PO 04/16/17 08:00 05/16/17 08:59 04/16/17 08:07 30 MG Ferrous Gluconate (Ferrous Gluconate Tab) 324 mg DAILY PO 04/16/17 08:00 05/16/17 08:59 04/16/17 08:06 324 MG Lisinopril (Zestril Tab) 5 mg DAILY PO 04/16/17 08:00 05/16/17 08:59 04/16/17 08:08 5 MG Lorazepam (Ativan Tab) 0.5 mg BID PRN PO 04/16/17 00:00 05/16/17 00:00 Morphine Sulfate (Oramorph Sr Tab) 45 mg BID PO 04/16/17 08:00 04/30/17 08:59 04/16/17 08:10 45 MG Multivitamins (Multivitamin Tab) 1 tab DAILY PO 04/16/17 08:00 3/19/18 08:59 04/16/17 08:07 1 TAB Oxycodone/ Acetaminophen (Percocet 10-325MG Tab) 1 tab Q4 PRN PO 04/16/17 00:00 04/30/17 00:00 04/16/17 12:30 1 TAB Zolpidem Tartrate (Ambien Tab) 5 mg HS PRN PO 04/16/17 00:00 05/16/17 00:00 Pantoprazole Sodium (Protonix Tab) 40 mg QAM PO 04/16/17 08:00 05/16/17 07:59 04/16/17 08:07 40 MG Senna/Docusate Sodium (Senokot S Tab) 2 tab BID PO 04/16/17 08:00 05/16/17 08:59 04/16/17 08:06 2 TAB Prochlorperazine Edisylate 5 mg/ Syringe 5 ml @ 5 mls/min Q6H PRN IV 04/16/17 00:00 05/16/17 00:00 Hydromorphone HCl (Dilaudid Inj) 1 mg Q3H PRN IV 04/16/17 00:00 04/30/17 00:00 Acetaminophen (Tylenol Tab) 650 mg Q4H PRN PO 04/16/17 00:00 05/16/17 00:00 Polyethylene (Miralax Powder Packet) 17 gm DAILY PRN PO 04/16/17 00:15 05/16/17 00:14 Miscellaneous (Iv Fluids Completed) 1 ea PRN PRN N/A 04/16/17 00:45 04/16/18 00:44 Pregabalin (Lyrica Cap) 50 mg TID PO 04/16/17 08:00 05/16/17 08:59 04/16/17 08:10 50 MG Dexamethasone (Decadron Tab) 4 mg BID PO 04/16/17 21:00 05/16/17 08:59 Physical Exam Date Time Temp Pulse Resp B/P (MAP) Pulse Ox O2 Delivery O2 Flow Rate FiO2 04/16/17 11:15 37.5 100 20 122/66 (84) 100 04/16/17 08:12 36.6 128 20 130/77 (94) 100 Room Air 04/16/17 08:00 Room Air 04/16/17 07:31 37.5 100 20 121/72 (88) 100 04/16/17 01:00 37.3 103 18 160/73 97 Room Air 04/15/17 23:30 102 16 147/68 93 Room Air 04/15/17 23:01 106 20 110/56 98 Room Air 04/15/17 21:30 108 20 137/53 95 Room Air 04/15/17 21:01 146/63 95 Room Air 04/15/17 20:31 107 20 153/83 95 Room Air 04/15/17 20:16 106 04/15/17 20:04 146/75 96 Room Air 04/15/17 16:44 37.1 115 16 115/62 95 Room Air Laboratory Results Last 24 Hours Test 04/15/17 18:00 04/15/17 18:45 04/15/17 19:15 04/15/17 19:55 White Blood Count 3.29 K/uL Red Blood Count 3.37 M/uL Hemoglobin 9.2 g/dL Hematocrit 27.5 % Mean Corpuscular Volume 81.6 fL Mean Corpuscular Hemoglobin 27.3 pg Mean Corpuscular Hemoglobin Concent 33.5 g/dl Platelet Count 131 K/uL Mean Platelet Volume 9.3 fL RDW Standard Deviation 46.7 fL RDW Coefficient of Variation 15.8 % Nucleated RBC Absolute Count (auto) 0.02 K/uL Neutrophils % (Manual) 82.3 % Lymphocytes % (Manual) 6.2 % Monocytes % (Manual) 4.4 % Eosinophils % (Manual) 2.7 % Metamyelocytes % 0.9 % Myelocytes % 3.5 % Nucleated Red Blood Cells % 0.6 % Neutrophils # (Manual) 2.71 K/uL Total Absolute Neutrophils 2.71 K/uL Lymphocytes # (Manual) 0.20 K/uL Total Absolute Lymphocytes 0.20 K/uL Monocytes # (Manual) 0.14 K/uL Eosinophils # (Manual) 0.09 K/uL Metamyelocytes # 0.03 K/uL Myelocytes # 0.12 K/uL Ovalocytes 1+ Prothrombin Time 10.1 SECONDS Prothromb Time International Ratio 1.0 Sodium Level 133 mmol/L Potassium Level 3.7 mmol/L Chloride Level 96 mmol/L Carbon Dioxide Level 30 mmol/L Anion Gap 7.0 mmol/L Blood Urea Nitrogen 16 mg/dl Creatinine 0.77 mg/dl Est Creatinine Clear Calc Drug Dose 74.7 ml/min Estimated GFR () 102.9 Estimated GFR (Non- 88.8 BUN/Creatinine Ratio 21.0 Random Glucose 125 mg/dl Calcium Level 8.5 mg/dl Magnesium Level 2.0 mg/dl Total Bilirubin 0.5 mg/dl Direct Bilirubin 0.2 mg/dl Aspartate Amino Transf (AST/SGOT) 30 U/L Alanine Aminotransferase (ALT/SGPT) 57 U/L Alkaline Phosphatase 108 U/L Troponin I < 0.015 ng/ml Total Protein 6.0 gm/dl Albumin 2.4 gm/dl Lipase 105 U/L Thyroid Stimulating Hormone (TSH) 1.560 uIu/ml Lactic Acid Level 1.2 mmol/L Urine Color YELLOW Urine Appearance CLEAR Urine pH 6.0 Urine Specific [place] 1.017 Urine Protein NEG Urine Glucose (UA) NEG Urine Ketones NEG Urine Occult Blood NEG Urine Nitrite NEG Urine Bilirubin NEG Urine Urobilinogen NEG Urine Leukocyte Esterase NEG Influenza Type A Antigen Neg for Influ A Influenza Type B Antigen Neg for Influ B Test 04/16/17 06:00 04/16/17 06:52 Urine Color YELLOW Urine Appearance CLEAR Urine pH 7.0 Urine Specific [place] 1.035 Urine Protein 2+ Urine Glucose (UA) NEG Urine Ketones NEG Urine Occult Blood TRACE Urine Nitrite NEG Urine Bilirubin NEG Urine Urobilinogen NEG Urine Leukocyte Esterase SMALL Urine WBC (Auto) 5-10 /hpf Urine RBC (Auto) 0-4 /hpf Urine Hyaline Casts (Auto) 1-5 /lpf Urine Epithelial Cells (Auto) 5-10 /lpf Urine Bacteria (Auto) NEG White Blood Count 3.03 K/uL Red Blood Count 3.19 M/uL Hemoglobin 8.7 g/dL Hematocrit 25.8 % Mean Corpuscular Volume 80.9 fL Mean Corpuscular Hemoglobin 27.3 pg Mean Corpuscular Hemoglobin Concent 33.7 g/dl Platelet Count 115 K/uL Mean Platelet Volume 8.6 fL Neutrophils (%) (Auto) 77.7 % Lymphocytes (%) (Auto) 10.2 % Monocytes (%) (Auto) 5.9 % Eosinophils (%) (Auto) 2.3 % Basophils (%) (Auto) 0.3 % Neutrophils # (Auto) 2.35 K/uL Lymphocytes # (Auto) 0.31 K/uL Monocytes # (Auto) 0.18 K/uL Eosinophils # (Auto) 0.07 K/uL Basophils # (Auto) 0.01 K/uL RDW Standard Deviation 46.5 fL RDW Coefficient of Variation 15.8 % Immature Granulocyte % (Auto) 3.6 % Immature Granulocyte # (Auto) 0.11 K/uL Toxic Granulation 1+ Spherocytes 1+ Sodium Level 136 mmol/L Potassium Level 3.7 mmol/L Chloride Level 101 mmol/L Carbon Dioxide Level 29 mmol/L Anion Gap 6.0 mmol/L Blood Urea Nitrogen 11 mg/dl Creatinine 0.66 mg/dl Est Creatinine Clear Calc Drug Dose 90.4 ml/min Estimated GFR () 109.6 Estimated GFR (Non- 94.6 BUN/Creatinine Ratio 15.9 Random Glucose 98 mg/dl Calcium Level 8.1 mg/dl
--- NOTE | 2017-04-16 16:14 | Progress Note ---
Medicine Progress Note Date & Time of Visit: Apr 16, 2017 at 11:50. Subjective Pt was seen and examined Lying in bed with no distress Spoke to daughter/ and reviewed with his recent MRI and his plan Pt said that his pain is well control Nurse said that while he was sitting on the chair, pt felt asleep and slide down on the floor He did not have any injury Pt said that he feels well He does have a Juárez to urinate He denies any bowel loss and able to feel his buttock Denies any chest pain, palpitation, dizziness and SOB Objective Last 8 Hrs Date Time Temp Pulse Resp B/P (MAP) Pulse Ox O2 Delivery O2 Flow Rate FiO2 04/16/17 15:44 36.9 97 20 120/70 (87) 100 04/16/17 15:43 Room Air 04/16/17 11:15 37.5 100 20 122/66 (84) 100 04/16/17 08:12 36.6 128 20 130/77 (94) 100 Room Air 04/16/17 08:00 Room Air Physical Exam: General- No acute distress Head- atraumatic Eyes- PERRL, EOMI ENT- oropharynx clear Neck- supple, no JVD Lungs- clear to auscultation Heart- regular rhythm Abdomen- normal bowel sounds, soft Extremities- no calf tenderness Neuro- alert, oriented, PERRL, EOMI, move all 4 extremities Skin- warm & dry Laboratory Results: Last 24 Hours Test 04/15/17 18:00 04/15/17 18:45 04/15/17 19:15 04/15/17 19:55 White Blood Count 3.29 K/uL Red Blood Count 3.37 M/uL Hemoglobin 9.2 g/dL Hematocrit 27.5 % Mean Corpuscular Volume 81.6 fL Mean Corpuscular Hemoglobin 27.3 pg Mean Corpuscular Hemoglobin Concent 33.5 g/dl Platelet Count 131 K/uL Mean Platelet Volume 9.3 fL RDW Standard Deviation 46.7 fL RDW Coefficient of Variation 15.8 % Nucleated RBC Absolute Count (auto) 0.02 K/uL Neutrophils % (Manual) 82.3 % Lymphocytes % (Manual) 6.2 % Monocytes % (Manual) 4.4 % Eosinophils % (Manual) 2.7 % Metamyelocytes % 0.9 % Myelocytes % 3.5 % Nucleated Red Blood Cells % 0.6 % Neutrophils # (Manual) 2.71 K/uL Total Absolute Neutrophils 2.71 K/uL Lymphocytes # (Manual) 0.20 K/uL Total Absolute Lymphocytes 0.20 K/uL Monocytes # (Manual) 0.14 K/uL Eosinophils # (Manual) 0.09 K/uL Metamyelocytes # 0.03 K/uL Myelocytes # 0.12 K/uL Ovalocytes 1+ Prothrombin Time 10.1 SECONDS Prothromb Time International Ratio 1.0 Sodium Level 133 mmol/L Potassium Level 3.7 mmol/L Chloride Level 96 mmol/L Carbon Dioxide Level 30 mmol/L Anion Gap 7.0 mmol/L Blood Urea Nitrogen 16 mg/dl Creatinine 0.77 mg/dl Est Creatinine Clear Calc Drug Dose 74.7 ml/min Estimated GFR () 102.9 Estimated GFR (Non- 88.8 BUN/Creatinine Ratio 21.0 Random Glucose 125 mg/dl Calcium Level 8.5 mg/dl Magnesium Level 2.0 mg/dl Total Bilirubin 0.5 mg/dl Direct Bilirubin 0.2 mg/dl Aspartate Amino Transf (AST/SGOT) 30 U/L Alanine Aminotransferase (ALT/SGPT) 57 U/L Alkaline Phosphatase 108 U/L Troponin I < 0.015 ng/ml Total Protein 6.0 gm/dl Albumin 2.4 gm/dl Lipase 105 U/L Thyroid Stimulating Hormone (TSH) 1.560 uIu/ml Lactic Acid Level 1.2 mmol/L Urine Color YELLOW Urine Appearance CLEAR Urine pH 6.0 Urine Specific [place] 1.017 Urine Protein NEG Urine Glucose (UA) NEG Urine Ketones NEG Urine Occult Blood NEG Urine Nitrite NEG Urine Bilirubin NEG Urine Urobilinogen NEG Urine Leukocyte Esterase NEG Influenza Type A Antigen Neg for Influ A Influenza Type B Antigen Neg for Influ B Test 04/16/17 06:00 04/16/17 06:52 Urine Color YELLOW Urine Appearance CLEAR Urine pH 7.0 Urine Specific [place] 1.035 Urine Protein 2+ Urine Glucose (UA) NEG Urine Ketones NEG Urine Occult Blood TRACE Urine Nitrite NEG Urine Bilirubin NEG Urine Urobilinogen NEG Urine Leukocyte Esterase SMALL Urine WBC (Auto) 5-10 /hpf Urine RBC (Auto) 0-4 /hpf Urine Hyaline Casts (Auto) 1-5 /lpf Urine Epithelial Cells (Auto) 5-10 /lpf Urine Bacteria (Auto) NEG White Blood Count 3.03 K/uL Red Blood Count 3.19 M/uL Hemoglobin 8.7 g/dL Hematocrit 25.8 % Mean Corpuscular Volume 80.9 fL Mean Corpuscular Hemoglobin 27.3 pg Mean Corpuscular Hemoglobin Concent 33.7 g/dl Platelet Count 115 K/uL Mean Platelet Volume 8.6 fL Neutrophils (%) (Auto) 77.7 % Lymphocytes (%) (Auto) 10.2 % Monocytes (%) (Auto) 5.9 % Eosinophils (%) (Auto) 2.3 % Basophils (%) (Auto) 0.3 % Neutrophils # (Auto) 2.35 K/uL Lymphocytes # (Auto) 0.31 K/uL Monocytes # (Auto) 0.18 K/uL Eosinophils # (Auto) 0.07 K/uL Basophils # (Auto) 0.01 K/uL RDW Standard Deviation 46.5 fL RDW Coefficient of Variation 15.8 % Immature Granulocyte % (Auto) 3.6 % Immature Granulocyte # (Auto) 0.11 K/uL Toxic Granulation 1+ Spherocytes 1+ Sodium Level 136 mmol/L Potassium Level 3.7 mmol/L Chloride Level 101 mmol/L Carbon Dioxide Level 29 mmol/L Anion Gap 6.0 mmol/L Blood Urea Nitrogen 11 mg/dl Creatinine 0.66 mg/dl Est Creatinine Clear Calc Drug Dose 90.4 ml/min Estimated GFR () 109.6 Estimated GFR (Non- 94.6 BUN/Creatinine Ratio 15.9 Random Glucose 98 mg/dl Calcium Level 8.1 mg/dl Date/Time Source Procedure Growth Status 04/15/17 18:51 Blood Blood Culture Pending Received 04/15/17 18:45 Blood Blood Culture Pending Received Assessment & Plan URINARY RETENTION Possible related to mets involving the sacral nerve plexus vs medication side effect MRI showed Extensive skeletal metastatic disease involving the lower thoracic spine, lumbar spine, sacrum and iliac bones. Extensive epidural extension of tumor extending from the L4-L5 through upper S2 level which results in marked narrowing of the central canal. Continue Juárez cath for now Since it is due to disease process, may need intermittent self catheterization at home. Case discussed with Dr. Machado oncologist recommended to increase decadron to 4mg BID Will reviewed the meds and hold any that has risk to cause urinary retention. Continue monitor METASTASIS BONE PAIN Pain well control Continue morphine extended release 45 mg BID, percocet 10mg/325 mg Continue Cymbalta 30mg daily for extra pain relief and continue Lyrica at 50mg TID. pain management on board CONFUSION MRI brain Mar 03 did not reveal any mets. Confusion probably due narcotic Stable METASTATIC LUNG CA Has been managed by Hematology / Oncology Dr. Machado HYPERTENSION Continue lisinopril. GERD Continue PPI. AMBULATORY DYSFUNCTION PT / OT. Discussed with daughter and about rehab They will need sometimes to think about it. Fall precaution VTE PROPHYLAXIS No chemoprophylaxis due to thrombocytopenia. SCD's. Ambulate as able. DISPOSITION Follow up with Dr. Dodge on 04/20 @ 10:55 am Follow up with Oncology Dr. Machado Current Inpatient Medications: Current Inpatient Medications Medications (Trade) Dose Ordered Sig/Gal Route Start Time Stop Time Status Last Admin Dose Admin Ioversol (Optiray 320) 100 ml UD PRN IV 04/15/17 17:30 04/19/17 17:29 Gadobutrol (Gadavist) 6 mmol UD PRN IV 04/15/17 22:45 04/19/17 22:44 Atorvastatin Calcium (Lipitor Tab) 40 mg DAILY PO 04/16/17 08:00 05/16/17 08:59 04/16/17 08:07 40 MG Duloxetine HCl (Cymbalta Cap) 30 mg QAM PO 04/16/17 08:00 05/16/17 08:59 04/16/17 08:07 30 MG Ferrous Gluconate (Ferrous Gluconate Tab) 324 mg DAILY PO 04/16/17 08:00 05/16/17 08:59 04/16/17 08:06 324 MG Lisinopril (Zestril Tab) 5 mg DAILY PO 04/16/17 08:00 05/16/17 08:59 04/16/17 08:08 5 MG Lorazepam (Ativan Tab) 0.5 mg BID PRN PO 04/16/17 00:00 05/16/17 00:00 Morphine Sulfate (Oramorph Sr Tab) 45 mg BID PO 04/16/17 08:00 04/30/17 08:59 04/16/17 08:10 45 MG Multivitamins (Multivitamin Tab) 1 tab DAILY PO 04/16/17 08:00 05/16/17 08:59 04/16/17 08:07 1 TAB Oxycodone/ Acetaminophen (Percocet 10-325MG Tab) 1 tab Q4 PRN PO 04/16/17 00:00 04/30/17 00:00 04/16/17 12:30 1 TAB Zolpidem Tartrate (Ambien Tab) 5 mg HS PRN PO 04/16/17 00:00 05/16/17 00:00 Pantoprazole Sodium (Protonix Tab) 40 mg QAM PO 04/16/17 08:00 05/16/17 07:59 04/16/17 08:07 40 MG Senna/Docusate Sodium (Senokot S Tab) 2 tab BID PO 04/16/17 08:00 05/16/17 08:59 04/16/17 08:06 2 TAB Prochlorperazine Edisylate 5 mg/ Syringe 5 ml @ 5 mls/min Q6H PRN IV 04/16/17 00:00 05/16/17 00:00 Hydromorphone HCl (Dilaudid Inj) 1 mg Q3H PRN IV 04/16/17 00:00 04/30/17 00:00 Acetaminophen (Tylenol Tab) 650 mg Q4H PRN PO 04/16/17 00:00 05/16/17 00:00 Polyethylene (Miralax Powder Packet) 17 gm DAILY PRN PO 04/16/17 00:15 05/16/17 00:14 Miscellaneous (Iv Fluids Completed) 1 ea PRN PRN N/A 04/16/17 00:45 04/16/18 00:44 04/16/17 15:00 1 EA Pregabalin (Lyrica Cap) 50 mg TID PO 04/16/17 08:00 05/16/17 08:59 04/16/17 08:10 50 MG Dexamethasone (Decadron Tab) 4 mg BID PO 04/16/17 21:00 05/16/17 08:59
[2017-04-16] MEDS: DEXAMETHASONE 4 MG TAB PO SCH (20:40)
[2017-04-16] MEDS: ZOLPIDEM TARTRATE 10 MG TAB PO PRN (22:01)
[2017-04-17 06:47] LABS: BASO % 0.2 %; BASO ABS # 0.01 K/uL (0-0.2); EOS % 0.2 %; EOS ABS # 0.01 K/uL (0-0.5); HEMATOCRIT 28.7 % (42-52); HEMOGLOBIN 9.4 g/dL (14.0-18.0); LYMPH % 9.3 %; LYMPH ABS # 0.38 K/uL (1.2-3.4); MEAN CELL VOLUME 82.7 fL (80-100); MEAN CORPUSCULAR HEMOGLOBIN 27.1 pg (25-34); MEAN CORPUSCULAR HGB CONC 32.8 g/dl (32-36); MEAN PLATELET VOLUME 9.7 fL (7.4-10.4); MONO % 3.9 %; MONO ABS # 0.16 K/uL (0.11-0.59); NEUT ABS # 3.43 K/uL (1.4-6.5); PLATELET COUNT 150 K/uL (130-400); RED CELL DISTRIBUTION WIDTH CV 15.9 % (11.5-14.5); RED CELL DISTRIBUTION WIDTH SD 47.7 fL (36.4-46.3); WHITE BLOOD COUNT 4.09 K/uL (4.8-10.8)
[2017-04-17 08:17] VITALS: BP 124/66; PULSE 88; TEMP 37; O2SAT 100
[2017-04-17] MEDS: OXYCODONE/ACETAMINOPHEN 10/325MG TAB PO PRN ×3 (08:32→18:37)
[2017-04-17] MEDS: MoRPHine SULFATE CR 15 MG TAB (MS CONTIN) PO SCH ×2 (08:33→20:13)
[2017-04-17] MEDS: PREGABALIN 50 MG CAP PO SCH ×3 (08:33→20:13)
[2017-04-17] MEDS: MULTIVITAMIN TAB PO SCH (09:03)
[2017-04-17] MEDS: DEXAMETHASONE 4 MG TAB PO SCH ×2 (09:04→20:13)
[2017-04-17] MEDS: ATORVASTATIN 20 MG TAB PO SCH (09:04)
[2017-04-17] MEDS: LISINOPRIL 5 MG TAB PO SCH (09:04)
[2017-04-17] MEDS: PANTOprazole SOD 40 MG TAB PO SCH (09:05)
[2017-04-17] MEDS: DULOXETINE (CYMBALTA) 30 MG CAP PO SCH (09:05)
[2017-04-17] MEDS: FERROUS GLUCONATE 324 MG TAB PO SCH (09:05)
[2017-04-17] MEDS: DOCUSATE SODIUM/SENNA 50/8.6MG TAB PO SCH ×2 (09:05→20:14)
[2017-04-17 11:31] VITALS: BP 135/69; PULSE 86; TEMP 36.6; O2SAT 100
[2017-04-17 16:01] VITALS: BP 127/65; PULSE 86; TEMP 36.9; O2SAT 100
--- NOTE | 2017-04-17 18:17 | Progress Note ---
Medicine Progress Note Date & Time of Visit: Apr 17, 2017 at 18:13. Subjective Pt was seen and examined Lying in bed with no distress with family at bedside Pt is more awake today He said that his pain is controlled Denies any chest pain, palpitation, dizziness and SOB Objective Last 8 Hrs Date Time Temp Pulse Resp B/P (MAP) Pulse Ox O2 Delivery O2 Flow Rate FiO2 04/17/17 16:01 36.9 86 18 127/65 (85) 100 Room Air 04/17/17 15:11 Room Air 04/17/17 11:31 36.6 86 16 135/69 (91) 100 Room Air Physical Exam: General- No acute distress Head- atraumatic Eyes- PERRL, EOMI ENT- oropharynx clear Neck- supple, no JVD Lungs- clear to auscultation Heart- regular rhythm Abdomen- normal bowel sounds, soft Extremities- no calf tenderness Neuro- alert, oriented, PERRL, EOMI, move all 4 extremities Skin- warm & dry Laboratory Results: Last 24 Hours Test 04/17/17 06:25 White Blood Count 4.09 K/uL Red Blood Count 3.47 M/uL Hemoglobin 9.4 g/dL Hematocrit 28.7 % Mean Corpuscular Volume 82.7 fL Mean Corpuscular Hemoglobin 27.1 pg Mean Corpuscular Hemoglobin Concent 32.8 g/dl Platelet Count 150 K/uL Mean Platelet Volume 9.7 fL Neutrophils (%) (Auto) 84.0 % Lymphocytes (%) (Auto) 9.3 % Monocytes (%) (Auto) 3.9 % Eosinophils (%) (Auto) 0.2 % Basophils (%) (Auto) 0.2 % Neutrophils # (Auto) 3.43 K/uL Lymphocytes # (Auto) 0.38 K/uL Monocytes # (Auto) 0.16 K/uL Eosinophils # (Auto) 0.01 K/uL Basophils # (Auto) 0.01 K/uL RDW Standard Deviation 47.7 fL RDW Coefficient of Variation 15.9 % Immature Granulocyte % (Auto) 2.4 % Immature Granulocyte # (Auto) 0.10 K/uL Assessment & Plan URINARY RETENTION Possible related to mets involving the sacral nerve plexus vs medication side effect MRI showed Extensive skeletal metastatic disease involving the lower thoracic spine, lumbar spine, sacrum and iliac bones. Extensive epidural extension of tumor extending from the L4-L5 through upper S2 level which results in marked narrowing of the central canal. Continue Juárez cath for now Since it is due to disease process, may need intermittent self catheterization at home. Case discussed with Dr. Machado oncologist recommended to increase decadron to 4mg BID Will reviewed the meds and hold any that has risk to cause urinary retention. Continue monitor Will removed follow in am and do a voiding trial METASTASIS BONE PAIN Pain well control Continue morphine extended release 45 mg BID, Percocet 10mg/325 mg Continue Cymbalta 30mg daily for extra pain relief and continue Lyrica at 50mg TID. pain management on board CONFUSION MRI brain Mar 03 did not reveal any mets. Confusion probably due narcotic Stable METASTATIC LUNG CA Has been managed by Hematology / Oncology Dr. Machado HYPERTENSION Continue lisinopril. GERD Continue PPI. AMBULATORY DYSFUNCTION PT / OT. Discussed with daughter and about rehab They will need sometimes to think about it. Fall precaution VTE PROPHYLAXIS No chemoprophylaxis due to thrombocytopenia. SCD's. Ambulate as able. DISPOSITION Follow up with Dr. Dodge on 04/20 @ 10:55 am Follow up with Oncology Dr. Machado Current Inpatient Medications: Current Inpatient Medications Medications (Trade) Dose Ordered Sig/Gal Route Start Time Stop Time Status Last Admin Dose Admin Ioversol (Optiray 320) 100 ml UD PRN IV 04/15/17 17:30 04/19/17 17:29 Gadobutrol (Gadavist) 6 mmol UD PRN IV 04/15/17 22:45 04/19/17 22:44 Atorvastatin Calcium (Lipitor Tab) 40 mg DAILY PO 04/16/17 08:00 05/16/17 08:59 04/17/17 09:04 40 MG Duloxetine HCl (Cymbalta Cap) 30 mg QAM PO 04/16/17 08:00 05/16/17 08:59 04/17/17 09:05 30 MG Ferrous Gluconate (Ferrous Gluconate Tab) 324 mg DAILY PO 04/16/17 08:00 05/16/17 08:59 04/17/17 09:05 324 MG Lisinopril (Zestril Tab) 5 mg DAILY PO 04/16/17 08:00 05/16/17 08:59 04/17/17 09:04 5 MG Lorazepam (Ativan Tab) 0.5 mg BID PRN PO 04/16/17 00:00 05/16/17 00:00 Morphine Sulfate (Oramorph Sr Tab) 45 mg BID PO 04/16/17 08:00 04/30/17 08:59 04/17/17 08:33 45 MG Multivitamins (Multivitamin Tab) 1 tab DAILY PO 04/16/17 08:00 05/16/17 08:59 04/17/17 09:03 1 TAB Oxycodone/ Acetaminophen (Percocet 10-325MG Tab) 1 tab Q4 PRN PO 04/16/17 00:00 04/30/17 00:00 04/17/17 12:38 1 TAB Zolpidem Tartrate (Ambien Tab) 5 mg HS PRN PO 04/16/17 00:00 05/16/17 00:00 04/16/17 22:01 5 MG Pantoprazole Sodium (Protonix Tab) 40 mg QAM PO 04/16/17 08:00 05/16/17 07:59 04/17/17 09:05 40 MG Senna/Docusate Sodium (Senokot S Tab) 2 tab BID PO 04/16/17 08:00 05/16/17 08:59 04/17/17 09:05 2 TAB Prochlorperazine Edisylate 5 mg/ Syringe 5 ml @ 5 mls/min Q6H PRN IV 04/16/17 00:00 05/16/17 00:00 Hydromorphone HCl (Dilaudid Inj) 1 mg Q3H PRN IV 04/16/17 00:00 04/30/17 00:00 Acetaminophen (Tylenol Tab) 650 mg Q4H PRN PO 04/16/17 00:00 05/16/17 00:00 Polyethylene (Miralax Powder Packet) 17 gm DAILY PRN PO 04/16/17 00:15 05/16/17 00:14 04/16/17 19:32 17 GM Miscellaneous (Iv Fluids Completed) 1 ea PRN PRN N/A 04/16/17 00:45 04/16/18 00:44 04/16/17 15:00 1 EA Pregabalin (Lyrica Cap) 50 mg TID PO 04/16/17 08:00 05/16/17 08:59 04/17/17 08:33 50 MG Dexamethasone (Decadron Tab) 4 mg BID PO 04/16/17 21:00 05/16/17 08:59 04/17/17 09:04 4 MG
[2017-04-17 19:24] VITALS: BP 127/70; PULSE 85; TEMP 37; O2SAT 100
[2017-04-17 23:16] VITALS: BP 132/67; PULSE 97; TEMP 36.7; O2SAT 100
[2017-04-18] VITALS (7 sets, daily range): BP systolic 119–136; BP diastolic 57–74; PULSE 77–108; TEMP 36.5–37; O2SAT 95–100
[2017-04-18] MEDS: DOCUSATE SODIUM/SENNA 50/8.6MG TAB PO SCH ×2 (08:40→19:24)
[2017-04-18] MEDS: MoRPHine SULFATE CR 15 MG TAB (MS CONTIN) PO SCH ×2 (08:40→19:24)
[2017-04-18] MEDS: PREGABALIN 50 MG CAP PO SCH ×3 (08:40→19:24)
[2017-04-18] MEDS: OXYCODONE/ACETAMINOPHEN 10/325MG TAB PO PRN ×3 (08:40→17:28)
[2017-04-18] MEDS: ATORVASTATIN 20 MG TAB PO SCH (08:41)
[2017-04-18] MEDS: DULOXETINE (CYMBALTA) 30 MG CAP PO SCH (08:41)
[2017-04-18] MEDS: PANTOprazole SOD 40 MG TAB PO SCH (08:41)
[2017-04-18] MEDS: DEXAMETHASONE 4 MG TAB PO SCH ×2 (08:41→19:23)
[2017-04-18] MEDS: MULTIVITAMIN TAB PO SCH (08:42)
[2017-04-18] MEDS: FERROUS GLUCONATE 324 MG TAB PO SCH (08:42)
[2017-04-18] MEDS: LISINOPRIL 5 MG TAB PO SCH (08:42)
--- NOTE | 2017-04-18 09:50 | Pain Management Consultation ---
Pain Management Consultation Date of Consultation Apr 18, 2017. Reason for Consultation Intractable lumbosacral pain Pain Location 1 - History Mr. Barrera is a 77-year-old white male who is well-known to the pain service from prior hospital admission and outpatient evaluation patient has history of. Stage IV lung cancer with metastatic disease involving the lumbosacral epidural space and extensive bony metastases. Patient was readmitted this past weekend for urinary retention. The patient has persisting complaints of pain in the lumbosacral region aggravated with sitting positioning and improves while lying supine. He reports some reduction in his pain upon this admission with increase in his Decadron dosing. He describes the pain as aching ranging between a 5-7/10. His pain is occasionally lower than a 5/10 while lying supine. He is sleeping through the night without nighttime awakenings. He maintains MS Contin 45 mg twice daily and oxycodone/acetaminophen 10/325 mg for breakthrough pain. The patient and his believe that Cymbalta has been effective at diminishing his pain and improving his mood which was started approximately 1 week ago. He appears to be tolerating the medication without side effects. He continued to have intermittent difficulties with confusion which his reports is improved over the past few days. The patient did report a bowel movement yesterday and denies abdominal fullness or discomfort at today's visit. Repeat imaging upon this admission with lumbar spine MRI revealed progression of his metastatic disease. Patient expressed no further constitutional complaints at today's consultation. was present for visit as well. Plan of care discussed with Dr. Mariana Valentine. Past Medical/Surgical History (1) Pneumonia (2) Non-small cell carcinoma of lung, stage 4 (3) Metastatic disease (4) Acute urinary retention (5) Weakness (6) Lung cancer, upper lobe (7) HTN (hypertension) (8) GERD (gastroesophageal reflux disease) (9) Dyslipidemia (10) History of tonsillectomy and adenoidectomy Family History FH: cardiovascular disease Stroke Social / Work History Smoking Status: Former smoker Smokeless Tobacco Use: No Alcohol Use: none Drug Use: none Marital Status: Housing Status: lives with family Occupation: retired Allergies Coded Allergies: No Known Allergies (Unverified , 04/15/17) Medications Current Inpatient Medications Medications (Trade) Dose Ordered Sig/Gal Route Start Time Stop Time Status Last Admin Dose Admin Ioversol (Optiray 320) 100 ml UD PRN IV 04/15/17 17:30 04/19/17 17:29 Gadobutrol (Gadavist) 6 mmol UD PRN IV 04/15/17 22:45 04/19/17 22:44 Atorvastatin Calcium (Lipitor Tab) 40 mg DAILY PO 04/16/17 08:00 05/16/17 08:59 04/18/17 08:41 40 MG Duloxetine HCl (Cymbalta Cap) 30 mg QAM PO 04/16/17 08:00 05/16/17 08:59 04/18/17 08:41 30 MG Ferrous Gluconate (Ferrous Gluconate Tab) 324 mg DAILY PO 04/16/17 08:00 05/16/17 08:59 04/18/17 08:42 324 MG Lisinopril (Zestril Tab) 5 mg DAILY PO 04/16/17 08:00 05/16/17 08:59 04/18/17 08:42 5 MG Lorazepam (Ativan Tab) 0.5 mg BID PRN PO 04/16/17 00:00 05/16/17 00:00 Morphine Sulfate (Oramorph Sr Tab) 45 mg BID PO 04/16/17 08:00 04/30/17 08:59 04/18/17 08:40 45 MG Multivitamins (Multivitamin Tab) 1 tab DAILY PO 04/16/17 08:00 05/16/17 08:59 04/18/17 08:42 1 TAB Oxycodone/ Acetaminophen (Percocet 10-325MG Tab) 1 tab Q4 PRN PO 04/16/17 00:00 04/30/17 00:00 04/18/17 08:40 1 TAB Zolpidem Tartrate (Ambien Tab) 5 mg HS PRN PO 04/16/17 00:00 05/16/17 00:00 04/16/17 22:01 5 MG Pantoprazole Sodium (Protonix Tab) 40 mg QAM PO 04/16/17 08:00 05/16/17 07:59 04/18/17 08:41 40 MG Senna/Docusate Sodium (Senokot S Tab) 2 tab BID PO 04/16/17 08:00 05/16/17 08:59 04/18/17 08:40 2 TAB Prochlorperazine Edisylate 5 mg/ Syringe 5 ml @ 5 mls/min Q6H PRN IV 04/16/17 00:00 05/16/17 00:00 Hydromorphone HCl (Dilaudid Inj) 1 mg Q3H PRN IV 04/16/17 00:00 04/30/17 00:00 Acetaminophen (Tylenol Tab) 650 mg Q4H PRN PO 04/16/17 00:00 05/16/17 00:00 Polyethylene (Miralax Powder Packet) 17 gm DAILY PRN PO 04/16/17 00:15 05/16/17 00:14 04/16/17 19:32 17 GM Miscellaneous (Iv Fluids Completed) 1 ea PRN PRN N/A 04/16/17 00:45 04/16/18 00:44 04/16/17 15:00 1 EA Pregabalin (Lyrica Cap) 50 mg TID PO 04/16/17 08:00 05/16/17 08:59 04/18/17 08:40 50 MG Dexamethasone (Decadron Tab) 4 mg BID PO 04/16/17 21:00 05/16/17 08:59 04/18/17 08:41 4 MG Review of Systems Constitutional: Negative for fever, chills, sweats Eyes: Negative for eye pain, photophobia, drainage Ear, nose, mouth, throat: Negative for ear pain, nasal congestion, mouth lesions , change in voice Respiratory: Negative for wheezing, sputum production Cardiovascular: Negative for chest pain, palpitations, calf pain Gastrointestinal: Negative for abdominal pain, belching, bloating Genitourinary: Negative for dysuria, urinary incontinence, urinary urgency Musculoskeletal: Negative for deformities Integumentary: Negative for nail changes, skin yellowing, pruritus Neurological: Negative for abnormal speech, seizure type activity Physical Exam Height & Weight: Height 5 feet, 7.00 inches. Weight 65.800 (Kilograms) 145 (Pounds) Last Vital Signs Documentation Date Time Temp Pulse Resp B/P (MAP) Pulse Ox O2 Delivery O2 Flow Rate FiO2 04/18/17 07:30 36.7 89 20 124/64 (84) 100 Room Air Exam: General: Mr. Barrera was partially sitting up eating breakfast upon entering the room in no acute distress accompanied by his . He was awake alert and oriented to time person and place. Cognition appeared to be intact. Speech and thought process appropriate. Back/spine: Mild diffuse lumbosacral tenderness to palpation which is nonfocal to the midline, facet joints or SI joints. No appreciable spasm or minor trigger points evidence. Lower extremities: Strength testing 5/5 with dorsiflexion and plantar flexion. Hip flexion and extension 4+/5. Sensation was intact without deficits. EHL testing 5/5. No evidence of dysesthesias or paresthesias present on examination. Neurologic: Cranial nerves grossly intact. Ambulation not witness. Laboratory Laboratory Results (Last CBC): 04/17/17 06:25 Red Blood Count 3.47 L, Mean Corpuscular Volume 82.7, Mean Corpuscular Hemoglobin 27.1, Mean Corpuscular Hemoglobin Concent 32.8, Mean Platelet Volume 9.7, Neutrophils (%) (Auto) 84.0, Lymphocytes (%) (Auto) 9.3, Monocytes (%) ( Auto) 3.9, Eosinophils (%) (Auto) 0.2, Basophils (%) (Auto) 0.2, Neutrophils # ( Auto) 3.43, Lymphocytes # (Auto) 0.38 L, Monocytes # (Auto) 0.16, Eosinophils # (Auto) 0.01, Basophils # (Auto) 0.01 Imaging MRI: reports reviewed MRI Findings Patient: SUSANNE BARRERA Address1: [address] [place] [address] Rec: [id number] Address2: Acct ID: [id number] [facility] Zip: [place] [address] Date: 1940 Sex: M Room/Bed: Ref Phy: Rick Machado M.D. SC: ORALIA Att Phy: Report #: [id number] Vivian Phy: Nat Dodge D.O. Test: LSCO Admit Phy: Rn Employee Health: JOY Interpreting Phy: Sterling Gipson MD Diagnosis: CAN NOT URINATE, VERY WEAK, CONFUSED Ordering Phy: Mandeep Conner M.D. Service Date: 04/15/17 Admit Date: 04/15/17 MNE: [id number] CONF: DICTATED BY: Sterling Gipson MD]] CC: Mandeep Conner M.D. Kopinski, Laura, D.O. Patel, Nilesh A., M.D. Endcc: [~ rep ct add3]] MRI OF THE LUMBAR SPINE WITH AND WITHOUT CONTRAST CLINICAL HISTORY: Metastatic lung cancer. Urinary retention. COMPARISON STUDY: Lumbar spine MRI March 03, 2017. TECHNIQUE: Utilizing a 1.5 Stacy magnet and dedicated coil, multiplanar, multiecho imaging of the lumbar spine was performed before and after uneventful IV administration of 6 mL of Gadavist. FINDINGS: For purposes of numbering on this exam, the L5-S1 disc space is assigned to image 26 of 35. The conus terminates at the mid L1 level. A Juárez balloon is present within the bladder which is collapsed. Innumerable foci of marrow replacement are again noted, involving the lower thoracic spine, lumbar spine, sacrum and visualized iliac bones. There is extensive epidural extension of tumor which begins at the L4-L5 level and extends through the upper S2 level. Extensive epidural extension has increased since MRI of March 03, 2017. This results in marked narrowing of the lower lumbar and upper sacral canal as the tumor essentially fills the canal. Note is made of extension of tumor through multiple sacral neural foramen, more pronounced on the right. Extension into the adjacent musculature is noted on the right. Epidural tumor enhancement appears to have slightly decreased since exam of March 03, 2017. This has slightly progressed as well. Otherwise, the paravertebral soft tissues are unremarkable. Postcontrast images are mildly compromised due to motion artifact. IMPRESSION: Extensive skeletal metastatic disease involving the lower thoracic spine, lumbar spine, sacrum and iliac bones. Extensive epidural extension of tumor extending from the L4-L5 through upper S2 level which results in marked narrowing of the central canal. Tumor bulk appears mildly increased since MRI of March 03, 2017 with possible interval decrease in enhancement, possibly treatment related. Tumor obliterates the canal at these levels with extension through the sacral neural foramen and into the adjacent musculature. Electronically signed by: Sterling Gipson M.D. 04/15/2017 11:41 PM Dictated Date/Time: 04/15/2017 11:28 PM The status of this report is Signed. Draft = Not yet reviewed or approved by Radiologist. Signed = Reviewed and approved by Radiologist. CT: reports reviewed CT Findings Patient: SUSANNE BARRERA Address1: [address] Rec: [id number] Address2: Acct ID: [id number] [facility] Zip: [facility] [place] [address] Date: 1940 Sex: M Room/Bed: Ref Phy: Rick Machado M.D. SC: ORALIA Att Phy: Report #: [id number] Vivian Phy: Nat Dodge D.O. Test: APIV Admit Phy: Rn Employee Health: [employer] Interpreting Phy: Sterling Gipson MD Diagnosis: CAN NOT URINATE, VERY WEAK, CONFUSED Ordering Phy: Mandeep Conner M.D. Service Date: 04/15/17 Admit Date: 04/15/17 MNE: [id number] CONF: DICTATED BY: Sterling Gipson MD]] CC: Mandeep Conner M.D. Kopinski, Laura, D.O. Patel, Nilesh A., M.D. Endcc: [~ rep ct add3]] CT OF THE ABDOMEN AND PELVIS WITH CONTRAST CLINICAL HISTORY: Urinary retention. Metastatic lung cancer. COMPARISON STUDY: PET/CT May 19, 2016, MRI of the pelvis July 16, 2016 and lumbar spine MRI March 03, 2017. TECHNIQUE: Following IV administration of 116 mL of Optiray-320, axial images of the abdomen and pelvis were obtained from the lung bases to the proximal femurs. Images were reviewed in the axial, sagittal, and coronal planes. IV contrast was administered without complication. A dose lowering technique was utilized adhering to the principles of ALARA. CT DOSE: 319.62 mGy.cm FINDINGS: Visualized portions of the lower chest demonstrate mild cardiomegaly. There is multifocal right pleural hyperdensity which could be related to prior pleurodesis. There are gallstones within the gallbladder. Mild splenomegaly is noted. The adrenal glands and pancreas are unremarkable Global. There is no significant biliary ductal dilatation. There are numerous suspected renal cyst. There are probable parapelvic cysts. This extensive atherosclerotic plaque of the abdominal aorta. There is no evidence for bowel obstruction. No pneumatosis, free air or portal venous gas is present. A Juárez balloon and gas are present within the bladder which is collapsed. Numerous blastic skeletal lesions are again noted. These are similar appearance to PET/CT of May 19, 2016. Note is again made of enhancing epidural soft tissue within the lower lumbar and sacral canal which was shown on MRI of March 03, 2017. There is involvement of multiple sacral neural foramen, greater on the right. Extension into the adjacent musculature is suspected. IMPRESSION: 1. Extensive skeletal metastases, as shown on prior imaging studies. Redemonstration of epidural spread of tumor within the lower lumbar and sacral canal as shown on MRI of March 03, 2017 with involvement of multiple sacral neural foramen and suspected extension into the adjacent musculature. Findings are suboptimally assessed by CT. 2. No bowel obstruction. 3. Mild splenomegaly. Electronically signed by: Sterling Gipson M.D. 04/15/2017 8:27 PM Dictated Date/Time: 04/15/2017 8:17 PM The status of this report is Signed. Draft = Not yet reviewed or approved by Radiologist. Signed = Reviewed and approved by Radiologist. Past Records Previous Records: personally reviewed by [facility] [place] Drug Monitoring Program Search Results: patient reviewed within database Assessment 1. Intractable lumbosacral pain secondary to history of extensive bony metastatic disease and extensive epidural extension of tumor extending from L4- 5 through the upper S2 levels contributing to market narrowing of the central canal 2. Opioid-induced constipation 3. Urinary retention upon admission likely secondary to #1 Recommendations 1. Recommend maintaining MS Contin at 45 mg twice daily 2. Continue oxycodone/acetaminophen 10/325 mg tablet p.o. every 4 hours for as needed breakthrough pain 3. Patient to utilize hydromorphone IV for breakthrough pain as written 4. Will progress Cymbalta to 60 mg daily 5. Consider addition of Movantik with persisting difficulties with constipation which are likely opioid induced Thank you for allowing us to participate in the care of Mr. Barrera
[2017-04-18] MEDS: HYDROmorphone INJ 1 MG/ML SYR IV PRN ×2 (10:02→19:17)
--- NOTE | 2017-04-18 17:38 | Progress Note ---
Medicine Progress Note Date & Time of Visit: Apr 18, 2017 at 17:17. Subjective Pt was seen and examined Lying in bed with no distress Pt said that he developed back pain after sitting on the chair for an hour said that pain management just gave him IV Dilaudid for the pain Denies any chest pain, palpitation, dizziness and SOB Objective Last 8 Hrs Date Time Temp Pulse Resp B/P (MAP) Pulse Ox O2 Delivery O2 Flow Rate FiO2 04/18/17 16:36 36.6 95 20 126/60 (82) 97 Room Air 04/18/17 12:04 36.5 108 18 119/57 (77) 96 Room Air Physical Exam: General- No acute distress Head- atraumatic Eyes- PERRL, EOMI ENT- oropharynx clear Neck- supple, no JVD Lungs- clear to auscultation Heart- regular rhythm Abdomen- normal bowel sounds, soft Extremities- no calf tenderness Neuro- alert, oriented, PERRL, EOMI, move all 4 extremities Skin- warm & dry Assessment & Plan URINARY RETENTION Possible related to mets involving the sacral nerve plexus vs medication side effect MRI showed Extensive skeletal metastatic disease involving the lower thoracic spine, lumbar spine, sacrum and iliac bones. Extensive epidural extension of tumor extending from the L4-L5 through upper S2 level which results in marked narrowing of the central canal. Continue Stewart cath for now Since it is due to disease process, may need intermittent self catheterization at home. Case discussed with Dr. Machado oncologist recommended to increase decadron to 4mg BID Will reviewed the meds and hold any that has risk to cause urinary retention. Continue monitor D/C stewart Will do a voiding trial If unable to void, will do intermittent straight cath METASTASIS BONE PAIN Pain well control Continue morphine extended release 45 mg BID, Percocet 10mg/325 mg Will change Lyrica to 50mg BID, since said pt become agitated when taking TID pain management on board Increase Cymbalta to 60mg daily CONFUSION MRI brain Mar 03 did not reveal any mets. Confusion probably due narcotic Stable METASTATIC LUNG CA Has been managed by Hematology / Oncology Dr. Machado HYPERTENSION Continue lisinopril. GERD Continue PPI. AMBULATORY DYSFUNCTION PT / OT. OK by PT to return home Fall precaution CONSTIPATION Due to Narcotic Continue laxative VTE PROPHYLAXIS No chemoprophylaxis due to thrombocytopenia. SCD's. Ambulate as able. DISPOSITION Follow up with Dr. Dodge on 04/20 @ 10:55 am Follow up with Oncology Dr. Machado Current Inpatient Medications: Current Inpatient Medications Medications (Trade) Dose Ordered Sig/Gal Route Start Time Stop Time Status Last Admin Dose Admin Ioversol (Optiray 320) 100 ml UD PRN IV 04/15/17 17:30 04/19/17 17:29 Gadobutrol (Gadavist) 6 mmol UD PRN IV 04/15/17 22:45 04/19/17 22:44 Atorvastatin Calcium (Lipitor Tab) 40 mg DAILY PO 04/16/17 08:00 05/16/17 08:59 04/18/17 08:41 40 MG Duloxetine HCl (Cymbalta Cap) 30 mg QAM PO 04/16/17 08:00 04/19/17 07:59 04/18/17 08:41 30 MG Ferrous Gluconate (Ferrous Gluconate Tab) 324 mg DAILY PO 04/16/17 08:00 05/16/17 08:59 04/18/17 08:42 324 MG Lisinopril (Zestril Tab) 5 mg DAILY PO 04/16/17 08:00 05/16/17 08:59 04/18/17 08:42 5 MG Lorazepam (Ativan Tab) 0.5 mg BID PRN PO 04/16/17 00:00 05/16/17 00:00 Morphine Sulfate (Oramorph Sr Tab) 45 mg BID PO 04/16/17 08:00 04/30/17 08:59 04/18/17 08:40 45 MG Multivitamins (Multivitamin Tab) 1 tab DAILY PO 04/16/17 08:00 05/16/17 08:59 04/18/17 08:42 1 TAB Oxycodone/ Acetaminophen (Percocet 10-325MG Tab) 1 tab Q4 PRN PO 04/16/17 00:00 04/30/17 00:00 04/18/17 12:51 1 TAB Zolpidem Tartrate (Ambien Tab) 5 mg HS PRN PO 04/16/17 00:00 05/16/17 00:00 04/16/17 22:01 5 MG Pantoprazole Sodium (Protonix Tab) 40 mg QAM PO 04/16/17 08:00 05/16/17 07:59 04/18/17 08:41 40 MG Senna/Docusate Sodium (Senokot S Tab) 2 tab BID PO 04/16/17 08:00 05/16/17 08:59 04/18/17 08:40 2 TAB Prochlorperazine Edisylate 5 mg/ Syringe 5 ml @ 5 mls/min Q6H PRN IV 04/16/17 00:00 05/16/17 00:00 Hydromorphone HCl (Dilaudid Inj) 1 mg Q3H PRN IV 04/16/17 00:00 04/30/17 00:00 04/18/17 10:02 1 MG Acetaminophen (Tylenol Tab) 650 mg Q4H PRN PO 04/16/17 00:00 05/16/17 00:00 Polyethylene (Miralax Powder Packet) 17 gm DAILY PRN PO 04/16/17 00:15 05/16/17 00:14 04/16/17 19:32 17 GM Miscellaneous (Iv Fluids Completed) 1 ea PRN PRN N/A 04/16/17 00:45 04/16/18 00:44 04/16/17 15:00 1 EA Pregabalin (Lyrica Cap) 50 mg TID PO 04/16/17 08:00 05/16/17 08:59 04/18/17 08:40 50 MG Dexamethasone (Decadron Tab) 4 mg BID PO 04/16/17 21:00 05/16/17 08:59 04/18/17 08:41 4 MG Duloxetine HCl (Cymbalta Cap) 60 mg QAM PO 04/19/17 08:00 05/16/17 08:59
[2017-04-18] MEDS: ZOLPIDEM TARTRATE 10 MG TAB PO PRN (23:38)
[2017-04-19 07:23] VITALS: BP 150/80; PULSE 83; TEMP 36.6; O2SAT 96
[2017-04-19] MEDS: MoRPHine SULFATE CR 15 MG TAB (MS CONTIN) PO SCH (07:50)
[2017-04-19] MEDS: DEXAMETHASONE 4 MG TAB PO SCH (07:51)
[2017-04-19] MEDS: PREGABALIN 50 MG CAP PO SCH ×2 (07:51→13:25)
[2017-04-19] MEDS: PANTOprazole SOD 40 MG TAB PO SCH (07:51)
[2017-04-19] MEDS: OXYCODONE/ACETAMINOPHEN 10/325MG TAB PO PRN ×2 (07:51→14:10)
[2017-04-19] MEDS: MULTIVITAMIN TAB PO SCH (07:51)
[2017-04-19] MEDS: FERROUS GLUCONATE 324 MG TAB PO SCH (07:51)
[2017-04-19] MEDS: DOCUSATE SODIUM/SENNA 50/8.6MG TAB PO SCH (07:51)
[2017-04-19] MEDS: LISINOPRIL 5 MG TAB PO SCH (07:51)
[2017-04-19] MEDS: ATORVASTATIN 20 MG TAB PO SCH (07:52)
[2017-04-19] MEDS ORDERED: DULOXETINE HCL 60 MG CAP PO SCH (08:00)
--- NOTE | 2017-04-19 08:53 | Progress Note ---
Medicine Progress Note Date & Time of Visit: Apr 19, 2017 at 08:47. Subjective Pt was seen and examined Lying in bed with no distress Pt said that he void yesterday without straight cath Pt also void about 500cc around 5 am this morning he said that his pain seems to be under control sometimes He said that he feels like he has the urge to urinate, but cannot Denies any chest pain, palpitation, dizziness and SOB Objective Last 8 Hrs Date Time Temp Pulse Resp B/P (MAP) Pulse Ox O2 Delivery O2 Flow Rate FiO2 04/19/17 07:23 36.6 83 18 150/80 (103) 96 Physical Exam: General- No acute distress Head- atraumatic Eyes- PERRL, EOMI ENT- oropharynx clear Neck- supple, no JVD Lungs- clear to auscultation Heart- regular rhythm Abdomen- normal bowel sounds, soft Extremities- no calf tenderness Neuro- alert, oriented, PERRL, EOMI, move all 4 extremities Skin- warm & dry Laboratory Results: Last 24 Hours Test 04/19/17 03:40 Urine Color YELLOW Urine Appearance CLOUDY Urine pH 6.5 Urine Specific [place] 1.008 Urine Protein NEG Urine Glucose (UA) NEG Urine Ketones NEG Urine Occult Blood NEG Urine Nitrite NEG Urine Bilirubin NEG Urine Urobilinogen NEG Urine Leukocyte Esterase NEG Urine WBC (Auto) 1-5 /hpf Urine RBC (Auto) 0-4 /hpf Urine Hyaline Casts (Auto) 0 /lpf Urine Epithelial Cells (Auto) 0-5 /lpf Urine Bacteria (Auto) NEG Assessment & Plan URINARY RETENTION Possible related to mets involving the sacral nerve plexus vs medication side effect MRI showed Extensive skeletal metastatic disease involving the lower thoracic spine, lumbar spine, sacrum and iliac bones. Extensive epidural extension of tumor extending from the L4-L5 through upper S2 level which results in marked narrowing of the central canal. Continue Stewart cath for now Since it is due to disease process, may need intermittent self catheterization at home. Case discussed with Dr. Machado oncologist recommended to increase decadron to 4mg BID Will reviewed the meds and hold any that has risk to cause urinary retention. Continue monitor D/C stewart Will do a voiding trial If unable to void, will do intermittent straight cath 04/19 Stewart was d/c yesterday He was able to void yesterday will arrange with home health to teach family how to self cath in the even he cannot void METASTASIS BONE PAIN Pain well control Continue morphine extended release 45 mg BID, Percocet 10mg/325 mg Will change Lyrica to 50mg BID, since said pt become agitated when taking TID pain management on board Continue Cymbalta to 60mg daily Stable CONFUSION MRI brain Mar 03 did not reveal any mets. Confusion probably due narcotic Stable METASTATIC LUNG CA Has been managed by Hematology / Oncology Dr. Machado HYPERTENSION Continue lisinopril. GERD Continue PPI. AMBULATORY DYSFUNCTION Continue PT / OT. OK by PT to return home Fall precaution CONSTIPATION Due to Narcotic Continue laxative VTE PROPHYLAXIS No chemoprophylaxis due to thrombocytopenia. SCD's. Ambulate as able. DISPOSITION Follow up with Dr. Dodge on 04/20 @ 10:55 am Follow up with Oncology Dr. Machado Consultants: Oncology Pain management Current Inpatient Medications: Current Inpatient Medications Medications (Trade) Dose Ordered Sig/Gal Route Start Time Stop Time Status Last Admin Dose Admin Ioversol (Optiray 320) 100 ml UD PRN IV 04/15/17 17:30 04/19/17 17:29 Gadobutrol (Gadavist) 6 mmol UD PRN IV 04/15/17 22:45 04/19/17 22:44 Atorvastatin Calcium (Lipitor Tab) 40 mg DAILY PO 04/16/17 08:00 05/16/17 08:59 04/19/17 07:52 40 MG Ferrous Gluconate (Ferrous Gluconate Tab) 324 mg DAILY PO 04/16/17 08:00 05/16/17 08:59 04/19/17 07:51 324 MG Lisinopril (Zestril Tab) 5 mg DAILY PO 04/16/17 08:00 05/16/17 08:59 04/19/17 07:51 5 MG Lorazepam (Ativan Tab) 0.5 mg BID PRN PO 04/16/17 00:00 05/16/17 00:00 Morphine Sulfate (Oramorph Sr Tab) 45 mg BID PO 04/16/17 08:00 04/30/17 08:59 04/19/17 07:50 45 MG Multivitamins (Multivitamin Tab) 1 tab DAILY PO 04/16/17 08:00 05/16/17 08:59 04/19/17 07:51 1 TAB Oxycodone/ Acetaminophen (Percocet 10-325MG Tab) 1 tab Q4 PRN PO 04/16/17 00:00 04/30/17 00:00 04/19/17 07:51 1 TAB Zolpidem Tartrate (Ambien Tab) 5 mg HS PRN PO 04/16/17 00:00 05/16/17 00:00 04/18/17 23:38 5 MG Pantoprazole Sodium (Protonix Tab) 40 mg QAM PO 04/16/17 08:00 05/16/17 07:59 04/19/17 07:51 40 MG Senna/Docusate Sodium (Senokot S Tab) 2 tab BID PO 04/16/17 08:00 05/16/17 08:59 04/19/17 07:51 2 TAB Prochlorperazine Edisylate 5 mg/ Syringe 5 ml @ 5 mls/min Q6H PRN IV 04/16/17 00:00 05/16/17 00:00 Hydromorphone HCl (Dilaudid Inj) 1 mg Q3H PRN IV 04/16/17 00:00 04/30/17 00:00 04/18/17 19:17 1 MG Acetaminophen (Tylenol Tab) 650 mg Q4H PRN PO 04/16/17 00:00 05/16/17 00:00 Polyethylene (Miralax Powder Packet) 17 gm DAILY PRN PO 04/16/17 00:15 05/16/17 00:14 04/16/17 19:32 17 GM Miscellaneous (Iv Fluids Completed) 1 ea PRN PRN N/A 04/16/17 00:45 04/16/18 00:44 04/16/17 15:00 1 EA Pregabalin (Lyrica Cap) 50 mg TID PO 04/16/17 08:00 05/16/17 08:59 04/19/17 07:51 50 MG Dexamethasone (Decadron Tab) 4 mg BID PO 04/16/17 21:00 05/16/17 08:59 04/19/17 07:51 4 MG Duloxetine HCl (Cymbalta Cap) 60 mg QAM PO 04/19/17 08:00 05/16/17 08:59 04/19/17 07:51 60 MG
[2017-04-19] MEDS ORDERED: DXM4 PO (09:03)
[2017-04-19] MEDS ORDERED: CYM60 PO (09:03)
[2017-04-19] MEDS ORDERED: MRLP17X PO (09:03)
[2017-04-19] MEDS ORDERED: OXYC-88 PO ×2 (09:03→09:04)
--- NOTE | 2017-04-19 09:09 | Discharge Instructions ---
Discharge Instructions Date of Service Apr 19, 2017. Admission Reason for Admission: Weakness Discharge Discharge Diagnosis / Problem: Urinary retention, Metastatic bone pain Discharge Goals Goal(s): Decrease discomfort, Improve function, Increase independence, Improve disease control Activity Recommendations Activity Limitations: resume your previous activity (as tolerated) . Instructions / Follow-Up Instructions / Follow-Up Follow up with your primary care provider Dr. Dodge on 04/25 @ 10:55 Follow up with oncology Dr. Machado ( please call to schedule for the appointment) Follow up with pain management as needed Case management arranged for home health services (To Home Health Service: Please refer to Palliative Care Service) Intermittent self straight cath if you are unable to void about twice or three time daily (Home health can help you how to do straight cath Continue physical therapy Fall precaution Hold next dose of narcotic if you become drowsy and lethargy Do not drive or operate any machine after taking the narcotic pain medications Current Hospital Diet Patient's current hospital diet: AHA Diet (Heart Healthy) Discharge Diet Recommended Diet: AHA Diet (Heart Healthy) Pending Studies Studies pending at discharge: no Medical Emergencies . Who to Call and When: Medical Emergencies: If at any time you feel your situation is an emergency, please call 911 immediately. . Non-Emergent Contact Non-Emergency issues call your: Primary Care Provider, Oncologist Call Non-Emergent contact if: your pain is not controlled, your pain is worsening, you have any medication questions . . "Provider Documentation" section prepared by Ole Cortes. . VTE Core Measure Inpt VTE Proph given/why not?: SCD's [place] Drug Monitoring Program Search Results: patient reviewed within database
[2017-04-19] MEDS: HYDROmorphone INJ 1 MG/ML SYR IV PRN (10:32)
[2017-04-19 11:18] VITALS: BP 135/69; PULSE 94; TEMP 36.6; O2SAT 96
[2017-04-19 14:17] VITALS: BP 135/69; PULSE 94; TEMP 36.6; O2SAT 96
--- NOTE | 2017-04-21 11:28 | Discharge Summary ---
Discharge Summary Date of Service Apr 21, 2017. Discharge Summary Admission Date: Apr 15, 2017 at 23:37 Discharge Date: Apr 19, 2017 Discharge Disposition: Home with services Principal Diagnosis: Urinary retention Secondary Diagnoses/Problems: Metastatic bone pain METASTATIC LUNG CA CONFUSION HTN GERD. AMBULATORY DYSFUNCTION CONSTIPATION Procedures: MRI OF THE LUMBAR SPINE WITH AND WITHOUT CONTRAST CLINICAL HISTORY: Metastatic lung cancer. Urinary retention. COMPARISON STUDY: Lumbar spine MRI March 03, 2017. TECHNIQUE: Utilizing a 1.5 Stacy magnet and dedicated coil, multiplanar, multiecho imaging of the lumbar spine was performed before and after uneventful IV administration of 6 mL of Gadavist. FINDINGS: For purposes of numbering on this exam, the L5-S1 disc space is assigned to image 26 of 35. The conus terminates at the mid L1 level. A Stewart balloon is present within the bladder which is collapsed. Innumerable foci of marrow replacement are again noted, involving the lower thoracic spine, lumbar spine, sacrum and visualized iliac bones. There is extensive epidural extension of tumor which begins at the L4-L5 level and extends through the upper S2 level. Extensive epidural extension has increased since MRI of March 03, 2017. This results in marked narrowing of the lower lumbar and upper sacral canal as the tumor essentially fills the canal. Note is made of extension of tumor through multiple sacral neural foramen, more pronounced on the right. Extension into the adjacent musculature is noted on the right. Epidural tumor enhancement appears to have slightly decreased since exam of March 03, 2017. This has slightly progressed as well. Otherwise, the paravertebral soft tissues are unremarkable. Postcontrast images are mildly compromised due to motion artifact. IMPRESSION: Extensive skeletal metastatic disease involving the lower thoracic spine, lumbar spine, sacrum and iliac bones. Extensive epidural extension of tumor extending from the L4-L5 through upper S2 level which results in marked narrowing of the central canal. Tumor bulk appears mildly increased since MRI of March 03, 2017 with possible interval decrease in enhancement, possibly treatment related. Tumor obliterates the canal at these levels with extension through the sacral neural foramen and into the adjacent musculature. Electronically signed by: Sterling Gipson M.D. 04/15/2017 11:41 PM Dictated Date/Time: 04/15/2017 11:[address] OF THE ABDOMEN AND PELVIS WITH CONTRAST CLINICAL HISTORY: Urinary retention. Metastatic lung cancer. COMPARISON STUDY: PET/CT May 19, 2016, MRI of the pelvis July 16, 2016 and lumbar spine MRI March 03, 2017. TECHNIQUE: Following IV administration of 116 mL of Optiray-320, axial images of the abdomen and pelvis were obtained from the lung bases to the proximal femurs. Images were reviewed in the axial, sagittal, and coronal planes. IV contrast was administered without complication. A dose lowering technique was utilized adhering to the principles of ALARA. CT DOSE: 319.62 mGy.cm FINDINGS: Visualized portions of the lower chest demonstrate mild cardiomegaly. There is multifocal right pleural hyperdensity which could be related to prior pleurodesis. There are gallstones within the gallbladder. Mild splenomegaly is noted. The adrenal glands and pancreas are unremarkable Global. There is no significant biliary ductal dilatation. There are numerous suspected renal cyst. There are probable parapelvic cysts. This extensive atherosclerotic plaque of the abdominal aorta. There is no evidence for bowel obstruction. No pneumatosis, free air or portal venous gas is present. A Stewart balloon and gas are present within the bladder which is collapsed. Numerous blastic skeletal lesions are again noted. These are similar appearance to PET/CT of May 19, 2016. Note is again made of enhancing epidural soft tissue within the lower lumbar and sacral canal which was shown on MRI of March 03, 2017. There is involvement of multiple sacral neural foramen, greater on the right. Extension into the adjacent musculature is suspected. IMPRESSION: 1. Extensive skeletal metastases, as shown on prior imaging studies. Redemonstration of epidural spread of tumor within the lower lumbar and sacral canal as shown on MRI of March 03, 2017 with involvement of multiple sacral neural foramen and suspected extension into the adjacent musculature. Findings are suboptimally assessed by CT. 2. No bowel obstruction. 3. Mild splenomegaly. Electronically signed by: Sterling Gipson M.D. 04/15/2017 8:27 PM Dictated Date/Time: 04/15/2017 8:17 PM CHEST ONE VIEW PORTABLE HISTORY: Evaluate Fever/Sepsis COMPARISON: Chest 04/10/2017. FINDINGS: No pleural effusions. No pneumothorax. The heart is normal in size. Mild interstitial thickening at the lung bases persist. There are few linear densities at the right lung base suggestive of scarring or atelectasis. This is also unchanged. No new focal lung consolidations. IMPRESSION: No significant change compared to the prior study. No acute process. Electronically signed by: Miguel Haynes M.D. 04/15/2017 6:03 PM Dictated Date/Time: 04/15/2017 6:01 PM Consultations: Oncology Pain management Medication Reconciliation New Medications: Dexamethasone (Dexamethasone) 4 Mg Tab 4 MG PO UD for 10 Days, TAB 1 tab twice a day for 4 days, then 1 tab for 4 days, then continue on 0.5 tab daily. Duloxetine HCl (Duloxetine HCl) 60 Mg Cap 60 MG PO QAM for 30 Days, CAP Polyethylene (Miralax) 17 Gm Pow 17 GM PO DAILY PRN for Constipation for 30 Days Continued Medications: Aspirin (Aspirin Ec) 81 Mg Tab 81 MG PO DAILY Atorvastatin (Lipitor) 40 Mg Tab 40 MG PO DAILY, 5 Refills Chlorpheniramine Maleate (Chlor-Trimeton Allergy) 12 Mg Tab 1 TAB PO DAILY PRN for allergies Denosumab (Xgeva) 120 Mg/1.7 Ml Inj 1 DOSE Q6WK Docusate Sodium (Colace) 100 Mg Cap 100 MG PO BID Ferrous Gluconate (Ferrous Gluconate) 324 Mg Tab 324 MG PO DAILY, TAB Lisinopril (Zestril) 5 Mg Tab 5 MG PO DAILY, TAB Lorazepam (Ativan) 0.5 Mg Tab 0.5 MG PO BID PRN for Anxiety, TAB Morphine Sulfate (Morphine Sulfate Er) 30 Mg Cap 30 MG PO Q12 Take 30 mg + 15 mg for total of 45 mg twice a day. Morphine Sulfate (Morphine Sulfate Er) 15 Mg Tab 15 MG PO BID, TAB Take 30 mg + 15 mg for total of 45 mg twice a day. Multivitamin (Multivitamin) Tab 1 TAB PO DAILY, TAB Omeprazole (Prilosec) 20 Mg Capcr 20 MG PO DAILY, CAP Ondansetron Hcl (Zofran) 8 Mg Tab 8 MG PO Q8 PRN for Nausea, TAB Oxycodone/Acetaminophen 10MG/325MG (Oxycodone/Acetaminophen 10MG/325MG) 1 Tab Tab 1 TAB PO Q4, #10 TAB (This prescription has been renewed) Hold for lethargy and drowsiness Pregabalin (Lyrica) 50 Mg Cap 50 MG PO BID, CAP Prochlorperazine Maleate (Compazine) 10 Mg Tab 10 MG PO Q6 PRN for Nausea or Vomiting, 3 Refills Zolpidem Tartrate (Ambien) 10 Mg Tab 5 MG PO HS PRN for Sleep, 5 Refills 1/2 tablet dose [herb laxative] () 2 TABS PO BID Discontinued Medications: Dexamethasone (Decadron) 4 Mg Tab 2 MG PO DAILY Duloxetine HCl (Duloxetine HCl) 30 Mg Cap 30 MG PO QAM for 30 Days, CAP Admission Information HPI (per Admitting provider): Pt is 77 y/o M with PMH Stage IV Lung CA with bony mets. Pt with hx hospitalization on 04/11/17 - 04/13/17 for weakness, confusion. Pt follows with Dr Machado and was seen by pain management last admission. Hx metastatic in the lumbosacral epidural space and pt with low back pain and bilateral LE pain with reported increasing LE weakness. States was having some trouble urinating over past weeks, however at night would have urinary incontinence in brief. states past 2 days pt hasn't been able to urinate. States been having constant sensation needs to urinate and having lower abdominal pressure, but unable to urinate. Pt taking MS Contine 45 mg BID, Oxycodone/acetaminophen 10mg x 6 hrs, and Lyrica 50mg BID per . She states he was started on cymbalta and seems to be sleeping better now and hasn't had to use ambien. reports pt with some intermittent confusion also. Increased trouble trying to ambulate secondary to weakness and pain. Unaware of any fevers past 2 days. No BM x 3 days. reports pt wasn't on his normal bowel regimen when he was hospitalized a couple of days ago. Pt denies VOSS, dizziness, neck pain, CP, SOB, cough, or known rashes, hematuria, diarrhea, syncope. Physical Exam (per Admitting): General Appearance: + pertinent finding (chronic ill appearance, uncomfortable appearing, frequent movement of LE to try to find position of comfort) Head: normocephalic, atraumatic Eyes: normal inspection, PERRL, EOMI, sclerae normal ENT: hearing grossly normal, pharynx normal, + pertinent finding (mildly dry mucous membranes) Neck: supple, trachea midline Respiratory/Chest: lungs clear, no respiratory distress, no accessory muscle use Cardiovascular: normal peripheral pulses, + tachycardia Abdomen/GI: normal bowel sounds, non tender, soft Back: no CVA tenderness, + pertinent finding (tenderness lumbar region) Extremities/Musculoskelatal: normal capillary refill, no pedal edema, + pertinent finding (distal pulses intact, ROM intact, non-tender to palpation at this time) Neurologic/Psych: alert, + pertinent finding (oriented to person and place) Skin: normal color, warm/dry Hospital Course URINARY RETENTION Possible related to mets involving the sacral nerve plexus vs medication side effect MRI showed Extensive skeletal metastatic disease involving the lower thoracic spine, lumbar spine, sacrum and iliac bones. Extensive epidural extension of tumor extending from the L4-L5 through upper S2 level which results in marked narrowing of the central canal. Continue Stewart cath for now Since it is due to disease process, may need intermittent self catheterization at home. Case discussed with Dr. Machado oncologist recommended to increase decadron to 4mg BID Will reviewed the meds and hold any that has risk to cause urinary retention. Continue monitor D/C stewart Will do a voiding trial If unable to void, will do intermittent straight cath 04/19 Stewart was d/c yesterday He was able to void yesterday will arrange with home health to teach family how to self cath in the even he cannot void METASTASIS BONE PAIN Pain well control Continue morphine extended release 45 mg BID, Percocet 10mg/325 mg Will change Lyrica to 50mg BID, since said pt become agitated when taking TID pain management on board Continue Cymbalta to 60mg daily Stable CONFUSION MRI brain Mar 03 did not reveal any mets. Confusion probably due narcotic Stable METASTATIC LUNG CA Has been managed by Hematology / Oncology Dr. Machado HYPERTENSION Continue lisinopril. GERD Continue PPI. AMBULATORY DYSFUNCTION Continue PT / OT. OK by PT to return home Fall precaution CONSTIPATION Due to Narcotic Continue laxative VTE PROPHYLAXIS No chemoprophylaxis due to thrombocytopenia. SCD's. Ambulate as able. DISPOSITION Follow up with Dr. Dodge on 04/20 @ 10:55 am Follow up with Oncology Dr. Machado Total time spent on discharge = 35 MINUTES This includes examination of the patient, discharge planning, medication reconciliation, and communication with other providers. Discharge Instructions Discharge Instructions Date of Service Apr 19, 2017. Admission Reason for Admission: Weakness Discharge Discharge Diagnosis / Problem: Urinary retention, Metastatic bone pain Discharge Goals Goal(s): Decrease discomfort, Improve function, Increase independence, Improve disease control Activity Recommendations Activity Limitations: resume your previous activity (as tolerated) . Instructions / Follow-Up Instructions / Follow-Up Follow up with your primary care provider Dr. Dodge on 04/20 @ 10:55 Follow up with oncology Dr. Machado ( please call to schedule for the appointment) Follow up with pain management as needed Case management arranged for home health services (To Home Health Service: Please refer to Palliative Care Service) Intermittent self straight cath if you are unable to void about twice or three time daily (Home health can help you how to do straight cath Continue physical therapy Fall precaution Hold next dose of narcotic if you become drowsy and lethargy Do not drive or operate any machine after taking the narcotic pain medications Current Hospital Diet Patient's current hospital diet: AHA Diet (Heart Healthy) Discharge Diet Recommended Diet: AHA Diet (Heart Healthy) Pending Studies Studies pending at discharge: no Medical Emergencies . Who to Call and When: Medical Emergencies: If at any time you feel your situation is an emergency, please call 911 immediately. . Non-Emergent Contact Non-Emergency issues call your: Primary Care Provider, Oncologist Call Non-Emergent contact if: your pain is not controlled, your pain is worsening, you have any medication questions . . "Provider Documentation" section prepared by Ole Cortes. . VTE Core Measure Inpt VTE Proph given/why not?: SCD's [place] Drug Monitoring Program Search Results: patient reviewed within database Additional Copies To Nat Dodge D.O.
== END 2017-04-19 15:34 | disposition home health service (06) ==
LOC: C.EDB 16:41 → C.4E 23:37 → EDBEDREQ 23:45 → ENRESERV 23:46
PROVIDERS: ADMIT Internal Medicine; ATTEND Internal Medicine
DX: R33.9 Retention of urine, unspecified (principal); E78.5 Hyperlipidemia, unspecified; K21.9 Gastro-esophageal reflux disease without esophagitis; I10 Essential (primary) hypertension; C34.90 Malignant neoplasm of unspecified part of unspecified bronchus or lung; Z87.01 Personal history of pneumonia (recurrent); Z90.89 Acquired absence of other organs; Z82.49 Family history of ischemic heart disease and other diseases of the circulatory system; Z82.3 Family history of stroke; Z79.82 Long term (current) use of aspirin; C79.51 Secondary malignant neoplasm of bone; R16.1 Splenomegaly, not elsewhere classified; Z92.3 Personal history of irradiation; Z87.891 Personal history of nicotine dependence